=== PATIENT | female | born 1955 | race Caucasian/White ===

== ENCOUNTER 2022-05-31 08:17 | Outpatient (REF) | payer OTHER, SELFPAY ==
[2022-05-31 09:29] LABS: SARS PCR* Negative SARS-CoV-2 (Negative)
== END 2022-05-31 08:18 | disposition home or self-care (01) ==
LOC: NPINS 08:17
PROVIDERS: Visit Provider Family Medicine
DX: Z20.822 Contact with and (suspected) exposure to COVID-19 (principal)
CPT/HCPCS: 87635

== ENCOUNTER 2022-08-31 15:29 | Outpatient (CLI) | payer OTHER, SELFPAY ==
[2022-08-31 17:25] LABS: Albumin* 4.6 g/dL (3.3-5.0); Chloride* 108 mmol/L (96-114)
[2022-08-31 17:26] LABS: Sodium* 144 mmol/L (135-149)
[2022-08-31 17:28] LABS: Aspartate Amino Transferase* 26 U/L (12-35); Bilirubin Total* 0.4 mg/dL (0.1-1.5); Blood Urea Nitrogen* 29 mg/dL (7-30); Carbon Dioxide* 30 mmol/L (20-32); Cholesterol* 178 mg/dL (90-199); Creatinine* 0.9 mg/dL (0.5-1.5); Estimated Glomerular Filt Rate 70 ml/min; Glucose* 97 mg/dL (60-115); Total Protein* 7.4 g/dL (6.0-8.3)
[2022-08-31 17:29] LABS: Alanine Aminotransferase* 23 U/L (4-35); Alkaline Phosphatase* 63 U/L (40-150); Calcium* 9.3 mg/dL (8.4-10.6); HDL Cholesterol* 57 mg/dL (>=50); LDL Cholesterol Calculated 51 mg/dL (<100); Triglycerides* 351 mg/dL (40-149)
[2022-08-31 17:52] LABS: Creatinine Urine 82.1 mg/dL
[2022-08-31 17:55] LABS: Microalbumin Creatinine Ratio 20 mg/g (0-30); Microalbumin Urine 2 mg/dL
[2022-08-31 18:00] LABS: TSH With Reflex to FT4* 0.324 uIU/mL (0.270-4.200)
== END 2022-08-31 15:30 | disposition home or self-care (01) ==
LOC: NFLDREF 15:29
PROVIDERS: PCP Family Medicine; Visit Provider Family Medicine
DX: E11.9 Type 2 diabetes mellitus without complications (principal); E78.5 Hyperlipidemia, unspecified; E03.9 Hypothyroidism, unspecified
CPT/HCPCS: 80053; 80061; 82043; 82570; 84443

== ENCOUNTER 2023-04-11 08:06 | Outpatient (CLI) | payer OTHER, SELFPAY | END 2023-04-11 08:07 | disposition home or self-care (01) | LOC: NFLDREF 04-15 12:58 | PROVIDERS: PCP Family Medicine; Referring Provider Family Medicine; Visit Provider Family Medicine | DX: E03.9 Hypothyroidism, unspecified (principal); E11.9 Type 2 diabetes mellitus without complications; I10 Essential (primary) hypertension; E55.9 Vitamin D deficiency, unspecified; G62.9 Polyneuropathy, unspecified; Z79.1 Long term (current) use of non-steroidal anti-inflammatories (NSAID) | CPT/HCPCS: 80053 ==

== ENCOUNTER 2023-12-24 10:27 | Outpatient (CLI) | payer OTHER, SELFPAY ==
--- OUTSIDE RECORDS SUMMARY | 2023-12-24 14:53 | XMS_ITS | Encounter Summary ---
Author Organization [facility] Address [address] [place] [address] Care Team Providers Care Restaurant Assistant Name Role Phone None Reported, Pcp Primary Care Provider Unavail able Encounter Details Date Type Department Care Team (Late st Contact Info) Description 12/12/2023 Ancillary Procedure Department of Dermatology Social History Tobacco Use Types Packs/Day Years Used Date Smoking Tobacco: Never Smokeless Tobacco: Never Alcohol Use Standard Drinks/Week Comments Never 0 (1 standard drink = 0.6 oz pur e alcohol) Humiliation, Afraid, Rape, and Kick questionnair e Answer Date Recorded Within the last year, have y ou been afraid of your partner or ex-partner? No 01/31/2023 Within the last year, have y ou been humiliated or emotionally abused in other ways by your partner or ex-partner? No Within the last year, have y ou been kicked, hit, slapped, or otherwise physically hurt by your partner or ex-partner? No 01/31/2023 Within the last year, have y ou been raped or forced to have any kind of sexual activity by your partner or ex-partner? No 01/31/2023 Overall Financial Resource Strain (CARDIA) Answe r Date Recorded How hard is it for you to pa y for the very basics like food, housing, medical care, and heating? Somewhat hard 01/31/2023 Exercise Vital Sign Answer Date Recorde d On average, how many days pe r week do you engage in moderate to strenuous exercise (like a brisk walk)? 2 days 01/31/2023 On average, how many minutes do you engage in exercise at this level? 30 min 01/31/2023 Hunger Vital Sign Answer Date Recorded Within the past 12 months, y ou worried that your food would run out before you got the money to buy more. Never true 02/01/20 Within the past 12 months, t he food you bought just didn't last and you didn't have money to get more. Never true 01/31/2023 PRAPARE - Transportation Answer Date Re corded In the past 12 months, has l ack of transportation kept you from medical appointments or from getting medications? No 12/2022 In the past 12 months, has l ack of transportation kept you from meetings, work, or from getting things needed for daily living? No 01/31/2023 Nutrition Answer Date Recorded On average, how many serving s of fruits and vegetables do you eat per day (serving size is equal to 1 cup or approximately the size of a tennis ball)? 5 or more 01/31/2023 Dental Answer Date Recorded Dental: Regular Dentist Yes 02/01/20 Employment Answer Date Recorded Employment status Working with temporary [employer] 01/31/2023 Housing Stability Answer Date Recorded What is your living situation today? I have a [facility] place to live 01/31/2023 Sex and Gender Information Value Date Recorded Sex Assigned at Female 10/06/2023 10:05 AM CDT Gender Identity Female 10/06/2023 10:05 AM CDT Sexual Orientation Straight 10/06/2023 10 :05 AM CDT documented as of this encounter Plan of Treatment Upcoming Encounters Date Type Department Care Team (Latest Contact Info) Description 01/22/2024 8:30 AM CDT Comprehensive Visit Division of Endocrinology in [place], [place] [address] [place] [phone] Iván Sky M.D. 200 [place] [phone] 01/22/2024 11:00 AM CDT Clinical Support Enema Prep Facility in [place], [place] [address] [place] [phone] Hung Botello M.D. 200 [place] [phone] 01/22/2024 12:30 PM CDT Appointment Division of Gastroenterology in [place], [place] [address] [place] [phone] Hung Botello M.D. [address] [place] [phone] 03/05/2024 7:15 AM CDT Appointment Department of Radiology, [place], [place] [address] [place] [phone] Hung Botello M.D. [address] [place] [phone] 03/06/2024 8:15 AM CDT Appointment Department of Radiology, [facility] in [place], [place] [address] [place] [phone] Hung Botello M.D. [address] [place] [phone] 03/07/2024 8:00 AM CDT Appointment Department of Radiology, [facility], in [place], [place] [address] [place] [phone] Hung Botello M.D. [address] [place] [phone] documented as of this encounter Procedures Procedure Name Priority Date/Time Associated Diagnosis Comments DERMATOLOGY IMAGE EXAM Routine 12/12/2023 12:00 AM CDT documented in this encounter Results * cheek, right upper 14 Mohs micrographic surgery-Dermatology Image Exam (12/12/2023 12:00 AM CDT) Narrative [facility]IM[facility] - 12/13/2023 10:54 AM CDT This order has been created and auto-finalized to support the import of images acquired without order. The clinical documentation to support these images can be found on the encounter that produced images. Provider Not In System IMG NON RAD IMAGI NG PROCEDURES [facility] NA documented in this encounter Visit Diagnoses Not on filedocumented in this encounter Care Teams Restaurant Assistant Relationship Specialty Start Date End Date None Reported, Pcp PCP - General Family Medicine 02/06/23 documented as of this encounter
--- OUTSIDE RECORDS SUMMARY | 2023-12-24 14:53 | XMS_ITS | Clinical Summary ---
Author Organization [facility] Address [address] [place] [address] Care Team Providers Care Density Control Puncher Name Role Phone No Ref-Primary, Physician Primary Care Provider Allergies Active Allergy Reactions Criticality Noted Date Comments Codeine Rash Low 12/03/2018 Prochlorperazine Anaphylaxis High 12/03/2018 Meperidine Visual Disturbance 12/03/2018 Hallucinations Exenatide Other (See Comments) 12/03/2018 (exenatide): Hypoglycemia, Psychological Changes Gabapentin Other (See Comments) 12/03/2018 Psychological Changes Iodine Anaphylaxis High 05/24/2017 Other reaction(s): Angioedema Monosodium Glutamate Anaphylaxis High 12/03/2018 Conjugated Estrogens Palpitations Low 12/03/2018 Pumpkin Flavor Anaphylaxis High 12/03/2018 Medications Medication Sig Dispensed Refills Start Date End Date Status B Complex Vitamins (VITAMIN B COMPLEX PO) Take 1 tablet by mouth daily Active bumetanide (BUMEX) 1 MG tablet Take 1 mg by mouth daily Active ciprofloxacin (CIPRO) 500 MG tablet Take 500 mg by mouth 2 times daily Active citalopram (CELEXA) 40 MG tablet Take 40 mg by mouth daily Active Cranberry 400 MG CAPS Take 400 mg by mouth Acti ve dulaglutide (TRULICITY) 0.75 MG/0.5ML pen Inject 0.75 mg Subcutaneous every 7 days Active estradiol (ESTRACE) 0.1 MG/GM vaginal cream Place 2 g vaginally three times a week Active hyoscyamine ER (LEVBID) 375 mcg 12 hr tablet Take 0.375 mg by mouth every 12 hours as needed for cramping Active ketorolac (TORADOL) 10 MG tablet Take 10 mg by mouth every 6 hours as needed for moderate pain Active LACTOBACILLUS RHAMNOSUS, GG, PO Active LANsoprazole (PREVACID) [address] capsule Take 30 mg by mouth daily Active levothyroxine (SYNTHROID/LEVOTHRO ID) 75 MCG tablet Take 75 mcg by mouth daily Active LORazepam (ATIVAN) 0.5 MG tablet Take 0.5 mg by mouth nightly as needed for anxiety Active pregabalin (LYRICA) 75 MG capsule Take 75 mg by mouth 2 times daily Active meloxicam (MOBIC) 15 MG tablet Take 15 mg by mouth daily Active polyethylene glycol (MIRALAX/GLYCOLAX) packet Take 1 packet by mouth daily Active Multiple Vitamins-Minerals (MULTIVITAMIN PO) Take 1 tablet by mouth daily Active omeprazole (PRILOSEC) [address] capsule Take 40 mg by mouth daily Active ondansetron (ZOFRAN) 4 MG tablet Take 4 mg by mouth every 8 hours as needed for nausea Active pioglitazone (ACTOS) 45 MG tablet Take 45 mg by mouth daily Active rosuvastatin (CRESTOR) 20 MG tablet Take 20 mg by mouth At Bedtime Active senna (SENOKOT) 8.6 MG tablet Active spironolactone (ALDACTONE) 25 MG tablet Take 25 mg by mouth daily Active Ascorbic Acid (VITAMIN C PO) Take 1,000 mg by mouth daily Active blood glucose monitoring (ONE TOUCH ULTRA 2) meter device kit Dispense meter, test strips, lancets covered by pt ins. E11.9 NIDDM type II - Test 1 time/day 03/12/2018 Active blood glucose (ONETOUCH ULTRA) test strip Dispense item covered by pt ins. E11.65 NIDDM type II, uncontrolled - Test 3 times/day, Reason: High A1C 09/16/2018 Active blood glucose monitoring (ONE TOUCH DELICA) lancets E11.65 NIDDM type II, uncontrolled - Test 3 times/day, Reason: High A1C 10/21/2018 Active Active Problems Problem Noted Date Diagnosed Date Dizziness 12/04/2018 Overview: Added automatically from request for surgery [id number] Family History Medical History Relation Comments Hypertension Son Relation Status Comments Son Social History Tobacco Use Types Packs/Day Years Used Date Smoking Tobacco: Never Smokeless Tobacco: Never Alcohol Use Standard Drinks/Week Comments Not Currently 0 (1 standard drink = 0.6 oz pur e alcohol) PHQ-2 Answer Date Recorded PHQ-2 Score 0 12/03/2018 Adolescent Education Answer Date Record ed Getting School Help Needed Not on file 04/19 Sex and Gender Information Value Date Recorded Sex Assigned at Not on file Gender Identity Not on file Sexual Orientation Not on file Last Filed Vital Signs Vital Sign Reading Time Taken Comments Blood Pressure 119/55 12/03/2018 12:55 PM CDT Pulse 76 12/03/2018 12:55 PM CDT Temperature - - Respiratory Rate - - Oxygen Saturation 97% 12/03/2018 12:55 PM CDT Inhaled Oxygen Concentration - - Weight 72.3 kg (159 lb 4.8 oz) 12/03/2018 12:55 PM CDT Height 164.8 cm (5' 4.88) 12/03/2018 12:55 PM C DT Body Mass Index 26.61 12/03/2018 12:55 PM CDT Plan of Treatment Not on file Care Teams Density Control Puncher Relationship Specialty Start Date End Date No Ref-Primary, Physician PCP - General 12/09/18
--- OUTSIDE RECORDS SUMMARY | 2023-12-24 14:53 | XMS_ITS | Encounter Summary ---
Author Organization [facility] Address [address] [place] [address] Care Team Providers Care Vegetable Farming Supervisor Name Role Phone No Ref-Primary, Physician Primary Care Provider Reason for Visit * Reason Onset Date Comments Appointment 12/03/2018 Tilt Table Test Encounter Details Date Type Department Care Team (Late st Contact Info) Description 12/03/2018 Telephone [facility] [address] [phone] Adult, Cardiology General Appointment (Tilt Table Test) Social History Tobacco Use Types Packs/Day Years Used Date Smoking Tobacco: Never Smokeless Tobacco: Never Alcohol Use Standard Drinks/Week Comments Not Currently 0 (1 standard drink = 0.6 oz pur e alcohol) PHQ-2 Answer Date Recorded PHQ-2 Score 0 12/03/2018 Sex and Gender Information Value Date Recorded Sex Assigned at Not on file Gender Identity Not on file Sexual Orientation Not on file documented as of this encounter Miscellaneous Notes * Telephone Encounter - Suzette Razo - 01/12/2019 2:29 PM CDT Patient didn't show for her tilt and it was cancelled. Naomi Razo Periop Electrophysiology Law Librarian [phone] * Telephone Encounter - Augusta Asher - 01/02/2019 11:53 AM CDT [facility] Call Center Phone Message May a detailed message be left on voicemail: yes Reason for Call: CANCELLATION - pt has been in hospital since December 19 and she would like to put these appointment on hold until he is out of the hospital, please call patient with further questions Action Taken: Message routed to: [facility] ([facility]): CARDIO * Telephone Encounter - Mayra Rosen - 12/03/2018 2:53 PM CDT Health Call Center Phone Message May a detailed message be left on voicemail: yes Reason for Call: Other: Pt called to speak with Naomi to set up a tilt table test. She is being referred by Dr. Cox in Neurology. Please give her a call back to get scheduled. She's hoping to set something up for 12/16 if possible. Action Taken: Message routed to: [facility] ([facility]): Cardiology documented in this encounter Plan of Treatment Not on file documented as of this encounter Visit Diagnoses Not on filedocumented in this encounter Care Teams Vegetable Farming Supervisor Relationship Specialty Start Date End Date No Ref-Primary, Physician PCP - General 12/09/18 documented as of this encounter
--- OUTSIDE RECORDS SUMMARY | 2023-12-24 14:53 | XMS_ITS | Encounter Summary ---
Author Organization [facility] Address [address] [place] [address] Care Team Providers Care Sales Demonstrator Name Role Phone None Reported, Pcp Primary Care Provider Unavail able Encounter Details Date Type Department Care Team (Latest Contact Info) Description 12/19/2023 8:39 AM CDT - 12/19/2023 11:59 PM CDT Hospital Encounter Department of Laboratory Medicine in [address] [phone] Iván Sky M.D. [address] [place] [address] Constipation; Diabetes Mellitus Type 2 With Diabetic Neuropathy (HCC) Discharge Disposition: Home or Self Care Social History Tobacco Use Types Packs/Day Years [...] Date Recorded Employment status Working with temporary restric tions 01/31/2023 Housing Stability Answer Date Recorded What is your living situation today? I have a [facility] place to live 01/31/2023 Sex and Gender Information Value Date Recorded Sex Assigned at Female 10/06/2023 10:05 AM CDT Gender Identity Female 10/06/2023 10:05 AM CDT Sexual Orientation Straight 10/06/2023 10 :05 AM CDT documented as of this encounter Medications at Time of Discharge Medication Sig Dispensed Refills Start Date End Date acetaminophen (TYLENOL) 500 mg tablet Take 1,000 mg by mouth 3 (three) times a day. APPLE CIDER VINEGAR ORAL Take 2 tablets by mouth daily. ascorbic acid, vitamin C, powder Take 1,000 mg by mouth daily. blood sugar diagnostic strips (OneTouch Ultra Test Strips) 1 test once as needed. 2-4 times daily 09/16/2018 bumetanide (BUMEX) 1 mg tablet Take 1 mg by mouth daily. For edema 05/23/2020 busPIRone (BUSPAR) 5 mg tablet Take 5 mg by mouth 2 (two) times a day. celecoxib (CeleBREX) 200 mg capsule Take 200 mg by mouth 2 (two) times a day. citalopram (CeleXA) 40 mg tablet Take 40 mg by mouth daily. 05/23/2020 cranberry 400 mg capsule Take 400 mg by mouth. 2,500 mg daily cyanocobalamin, vitamin B-12, 5,000 mcg tablet, IR & ER, biphasic Take 1 tablet by mouth daily. dulaglutide (TRULICITY) 0.75 mg/0.5 mL injection Inject 1.5 mg under the skin every 7 (seven) days. 05/23/2020 estradioL (ESTRACE) 0.1 mg/g (0.01%) vaginal cream Insert 2 g into the vagina 3 (three) times a week. 12/11/2018 hyoscyamine (LEVBID) 0.375 mg 12 hr tablet Take 0.375 mg by mouth every 12 (twelve) hours. 06/26/2020 ibuprofen (ADVIL,MOTRIN) 200 mg capsule Take 800 mg by mouth 3 (three) times a day. lansoprazole (PREVACID) [address] capsule Take 30 mg by mouth daily. 05/23/2020 levothyroxine (SYNTHROID, LEVOTHROID) 75 mcg tablet Take 75 mcg by mouth every morning before breakfast. 11/30/2019 multivitamin tablet Take 1 tablet by mouth daily. 10/11/2017 pioglitazone (ACTOS) 45 mg tablet Take 30 mg by mouth daily. 05/23/2020 pregabalin (LYRICA) 75 mg capsule Take 300 mg by mouth daily. 05/22/2020 rosuvastatin (CRESTOR) 20 mg tablet Take 20 mg by mouth at bedtime. 11/11/2019 sennosides-docusate sodium (SENOKOT-S) 8.6-50 mg per tablet Take 1 tablet by mouth 2 (two) times a day. traMADoL (ULTRAM) 50 mg tabletIndications:Acute Pain Take 1 tablet (50 mg total) by mouth every 6 (six) hours as needed for pain Indications: Acute Pain. 8 tablet 01/24/2023 VITAMIN B COMPLEX ORAL Take 1 tablet by mouth daily. 10/11/2017 documented as of this encounter Plan of Treatment Upcoming Encounters Date Type Department Care Team (Latest Contact Info) Description 01/22/2024 8:30 AM CDT Comprehensive Visit Division of Endocrinology in [place], [place] [address] [place] [phone] Iván Sky M.D. [address] [place] [phone] 01/22/2024 11:00 AM CDT Clinical Support Enema Prep Facility in [place], [place] [address] [place] [phone] Hung Botello M.D. [address] [place] [phone] 01/22/2024 12:30 PM CDT Appointment Division of Gastroenterology in [place], [place] [address] [place] [phone] Hung Botello M.D. [address] [place] [phone] 03/05/2024 7:15 AM CDT Appointment Department of Radiology, [facility], in [place], [place] [address] [place] [phone] Hung Boetllo M.D. [address] [place] [phone] 03/06/2024 8:15 AM CDT Appointment Department of Radiology, [facility], in [place], [place] [address] [place] [phone] Hung Botello M.D. [address] [place] [phone] 03/07/2024 8:00 AM CDT Appointment Department of Radiology, [facility] in [place], [place] [address] [place] [address] Hung Botello M.D. [address] [place] [address] documented as of this encounter Procedures Procedure Name Priority Date/Time Associated Diagnosis Comments HEMOGLOBIN A1C, B Routine 12/19/2023 8:4 8 AM CDT Constipation Diabetes Mellitus Type 2 With Diabetic Neuropathy (HCC) GLUCOSE, FASTING, S/P Routine 12/19/2023 8:48 AM CDT Constipation Diabetes Mellitus Type 2 With Diabetic Neuropathy (HCC) CREATININE WITH EGFR, S/P Routine 12/19/2023 8:48 AM CDT Constipation Diabetes Mellitus Type 2 With Diabetic Neuropathy (HCC) documented in this encounter Results * Glucose, Fasting (12/19/2023 8:48 AM CDT) Glucose, P 88 70 - 100 mg/dL 12/19/2023 1:12 PM CDT OWAT Last Intake 11 hr 12/19/2023 12:50 PM CDT OWAT Blood (Blood, Venous) 12/19/2023 8:48 AM CDT 12/19/2023 12:50 PM CDT Iván Saleh M.D. LAB BLOOD NON A DD-ON [facility] [address] [place] [address], [place] OWAT [facility] in [place] [address] [place] [address] * (ABNORMAL) Creatinine with Estimated GFR (12/19/2023 8:48 AM CDT) Creatinine 1.13(H) 0.59 - 1.04 mg/dL 12/19/2023 1:31 PM CDT OWAT Estimated GFR (eGFR) 53(L) >=60 mL/min/BSA 12/19/2023 1:31 PM CDT OWAT Comment: Estimated GFR calculated using the 2020 CKD_EPI creatinine equation. Blood (Blood, Venous) 12/19/2023 8:48 AM CDT 12/19/2023 12:57 PM CDT Iván Saleh M.D. LAB BLOOD ADD-O N Performing Organization Address [facility] Co de Phone Number [facility] [address] [place] [address], [facility] OWAT [facility] in [place] [address] [place] [address] * (ABNORMAL) Hemoglobin A1c (12/19/2023 8:48 AM CDT) Hemoglobin A1c, B 5.8(H) 4.2 - 5.6 % 12/19/2023 1:37 PM CDT OWAT Comment: Hemoglobin A1c values of 5.7-6.4 percent indicate an increased risk for developing diabetes mellitus. In diabetic patients, HbA1c goals should be discussed with healthcare provider. Blood (Blood, Venous) 12/19/2023 8:48 AM CDT 12/19/2023 12:57 PM CDT Iván Saleh M.D. LAB BLOOD ADD-O N Performing Organization Address [facility] Co de Phone Number [facility] [address] [place] [address], [facility] OWAT [facility] in [place] [address] [place] [address] documented in this encounter Visit Diagnoses Diagnosis Constipation Diabetes Mellitus Type 2 With Diabetic Neuropathy (HCC) documented in this encounter Care Teams Sales Demonstrator Relationship Specialty Start Date End Date None Reported, Pcp PCP - General Family Medicine 02/06/23 documented as of this encounter
--- OUTSIDE RECORDS SUMMARY | 2023-12-24 14:53 | XMS_ITS | Encounter Summary ---
Author Organization [facility] Address [address] [place] [address] Care Team Providers Care Coordinator Volunteer Services Name Role Phone None Reported, Pcp Primary Care Provider Unavail able Reason for Visit * Outpatient (Routine) - Closed Specialty Diagnoses / Procedures Referred By Myriam wise Referred To Contact Dermatology Augusta Peña M.D. [address] [place] [phone] [facility] Referral ID Status Reason Start Date Expiration Date Visits Re quested Visits Authorized [id number] Closed 12/05/2023 06/05/2025 1 1 Encounter Details Date Type Department Care Team (Late st Contact Info) Description 12/12/2023 3:00 PM CDT Nurse Only Department of Dermatology in [place], [place] [address] [place] [phone] Augusta Peña M.D. [address] [place] [phone] Kg Cabral R.N. [address] [place] [phone] Discharge Disposition: Home or Self Care Social [...] your living situation today? I have a [facility] place to live 01/31/2023 Sex and Gender Information Value Date Recorded Sex Assigned at Female 10/06/2023 10:05 AM CDT Gender Identity Female 10/06/2023 10:05 AM CDT Sexual Orientation Straight 10/06/2023 10 :05 AM CDT documented as of this encounter Procedure Notes * Kg Cabral R.N. - 12/12/2023 3:00 PM CDT Patient returns for suture removal. Status post scar excision done on December 05, [address] Dwight Lobo([id number]) to right cheek for hypertrophic scar . Verbal consent for procedure obtained from patient and spouse. Patient discussed and seen with supervising cosmetic sales consultant Supervising Physician: Dr. Dwight Lobo ([id number]). Final Pause: A final pause occurred just before the procedure start, during which the entire procedure team actively confirmed the correct patient, procedure, site, special equipment, and special requirements. Mrs. Barahona reports pruritis to face and neck. Incision is well approximated, minor yellow bruising present, skin graft pink in color, no concerns for infection present today. All suture(s)removed without difficulty. No apparent complications. Vaseline and bandage applied. Dr. Lobo examined wound, pleased with wound healing. Plan: Recommended OTC hydrocortisone cream BID PRN for pruritis x1 week to face Triamcinolone on neck BID for pruritis x1 week, rx provided Photos in one month Bandaging x3 days to entire scar, then only to skin graft site until completely healed Teaching provided to patient and spouse. Evaluation of learning: able to teach back. Time spent with patient: 30 minutes. documented in this encounter Plan of Treatment Upcoming Encounters Date Type Department Care Team (Latest Contact Info) Description 01/22/2024 8:30 AM CDT Comprehensive Visit Division of Endocrinology in [place], [place] [address] [place] [phone] Iván Sky M.D. [address] [place] [phone] 01/22/2024 11:00 AM CDT Clinical Support Enema Prep Facility in [place], [place] [address] [place] [phone] Hung Botello M.D. [address] [place] [phone] 01/22/2024 12:30 PM CDT Appointment Division of Gastroenterology in [place], [place] [address] [place] [phone] Hung Botello M.D. [address] [place] [phone] 03/05/2024 7:15 AM CDT Appointment Department of Radiology, [facility] in [place], [place] [address] [place] [phone] Hung Botello M.D. [address] [place] [phone] 03/06/2024 8:15 AM CDT Appointment Department of Radiology, [facility], in [place], [place] [address] [place] [phone] Hung Botello M.D. [address] [place] [phone] 03/07/2024 8:00 AM CDT Appointment Department of Radiology, [facility], in [place], [place] [address] [place] [phone] Hung Botello M.D. [address] [place] [phone] documented as of this encounter Visit Diagnoses Not on filedocumented in this encounter Care Teams Coordinator Volunteer Services Relationship Specialty Start Date End Date None Reported, Pcp PCP - General Family Medicine 02/06/23 documented as of this encounter
--- OUTSIDE RECORDS SUMMARY | 2023-12-24 14:53 | XMS_ITS ---
Author Organization [facility] Address [address] [place] [address] Care Team Providers Care Slide Attendant Name Role Phone Unavailable Unavailable Unavailable Surgery Details Not on file Complications Check Surgery Details section. Procedure Estimated Blood Loss Check Surgery Details section. Procedure Findings Check Surgery Details section. Procedure Specimens Taken Check Surgery Details section.
--- OUTSIDE RECORDS SUMMARY | 2023-12-24 14:53 | XMS_ITS | Referral Summary ---
Author Organization [facility] Address [address] [place] [id number] Care Team Providers Care Jewelry Mold Maker Name Role Phone No Ref-Primary, Physician Primary [...] Overview: Added automatically from request for surgery [id number] Social History Tobacco Use Types Packs/Day Years [...] of Treatment Not on file Care Teams Jewelry Mold Maker Relationship Specialty Start Date End Date No Ref-Primary, Physician PCP - General 12/09/18
--- OUTSIDE RECORDS SUMMARY | 2023-12-24 14:53 | XMS_ITS | Encounter Summary ---
Author Organization [facility] Address [address] [place] [id number] Care Team Providers Care Client Success Director Name Role Phone None Reported, Pcp Primary Care Provider Unavail able Reason for Visit * Reason Onset Date Comments Pre-visit Intake 12/11/2023 Encounter Details Date Type Department Care Team (Latest Contact Info) Description 12/11/2023 7:00 AM CDT Clinical Communication Virtual Review in [place], [place] [address] [place] [phone] Pre-visit Intake Social History Tobacco Use Types Packs/Day Years Used Date Smoking Tobacco: Never Smokeless Tobacco: Never Tobacco Cessation:Counseling Given: Not Answered Alcohol Use Standard Drinks/Week Comments Never 0 [...] money to buy more. Never true 02/01/20 23 Within the past 12 months, t he [...] your living situation today? I have a [facility] place to live 01/31/2023 Sex and [...] CDT Comprehensive Visit Division of Endocrinology in [place], [place] [address] [place] [address] Iván Sky M.D. [address] [place] [address] 01/22/2024 11:00 AM CDT Clinical Support Enema Prep Facility in [place], [place] [address] [place] [address] Hung Botello M.D. [address] [place] [phone] 01/22/2024 12:30 PM CDT Appointment Division of Gastroenterology in [place], [place] [address] [place] [address] Hung Botello M.D. [address] [place] [phone] 03/05/2024 7:15 AM CDT Appointment Department of Radiology, [facility], in [place], [place] [address] [place] [address] Hung Botello M.D. [address] [place] [phone] 03/06/2024 8:15 AM CDT Appointment Department of Radiology, [facility], in [place], [place] [address] [place] [address] Hung Botello M.D. [address] [place] [phone] 03/07/2024 8:00 AM CDT Appointment Department of Radiology, [facility], in [place], [place] [address] [place] [address] Hung Botello M.D. [address] [place] [phone] documented as of this encounter Visit Diagnoses Not on filedocumented in this encounter Care Teams Client Success Director Relationship Specialty Start Date End Date None Reported, Pcp PCP - General Family Medicine 02/06/23 documented as of this encounter
--- OUTSIDE RECORDS SUMMARY | 2023-12-24 14:53 | XMS_ITS | Encounter Summary ---
Author Organization [facility] Address [address] [place] [address] Care Team Providers Care Ged Teacher Name Role Phone None Reported, Pcp Primary Care Provider Unavail able Reason for Referral * Outpatient (Routine) - Closed Specialty Diagnoses / Procedures Referred By Myriam wise Referred To Contact Diagnoses Constipation Procedures DX Abdomen 1 View Hnug Botello M.D. [address] [place] [phone] [facility] Referral ID Status Reason Start Date Expiration Date Visits Re quested Visits Authorized [id number] Closed 09/27/2023 09/26/2024 1 1 Reason for Visit * Outpatient (Routine) - Closed Specialty Diagnoses / Procedures Referred By Myriam wise Referred To Contact Diagnoses Constipation Procedures DX Abdomen 1 View Hung Botello M.D. [address] [place] [phone] [facility] Referral ID Status Reason Start Date Expiration Date Visits Re quested Visits Authorized [id number] Closed 09/27/2023 09/26/2024 1 1 Encounter Details Date Type Department Care Team (Latest Contact Info) Description 12/12/2023 11:57 AM CDT - 12/12/2023 11:59 PM CDT Hospital Encounter Department of Radiology, [facility] in [place], [place] [address] [place] [phone] Hung Botello M.D. [address] [place] [phone] Constipation Discharge Disposition: Home or Self Care Social [...] your living situation today? I have a [facility] place to live 01/31/2023 Sex and [...] by mouth daily. blood sugar diagnostic strips ([employer] Ultra Test Strips) 1 test once as [...] times a day. traMADoL (ULTRAM) 50 mg tabletIndications:Acu te Pain Take 1 tablet (50 mg total) by mouth every 6 (six) hours as needed for pain Indications: Acute Pain. 8 tablet 01/24/2023 triamcinolone (KENALOG) 0.1 % cream Apply 1 Application topically 2 (two) times a day for 7 days. Apply to neck. 240 g 3 12/12/2023 VITAMIN B COMPLEX ORAL Take 1 tablet by mouth daily. 10/11/2017 cefadroxil (DURICEF) 500 mg capsule Take 1 capsule (500 mg total) by mouth 2 (two) times a day for 10 days. 20 capsule 12/05/2023 12/15/2023 documented as of this encounter Plan of Treatment Upcoming Encounters Date Type Department Care Team (Latest Contact Info) Description 01/22/2024 8:30 AM CDT Comprehensive Visit Division of Endocrinology in [place], [place] [address] [place] [phone] Iván Sky M.D. [address] [place] [phone] 01/22/2024 11:00 AM CDT Clinical Support [facility] Facility in [place], [place] [address] [place] [phone] Hung Botello M.D. [address] [place] [phone] 01/22/2024 12:30 PM CDT Appointment Division of Gastroenterology in [place], [place] [address] [place] [phone] Hung Botello M.D. [address] [place] [phone] 03/05/2024 7:15 AM CDT Appointment Department of Radiology, [place], [place] [address] [place] [phone] Hung Botello M.D. [address] [place] [phone] 03/06/2024 8:15 AM CDT Appointment Department of Radiology, [facility] in [place], [place] [address] [place] [phone] Hung Botello M.D. [address] [place] [phone] 03/07/2024 8:00 AM CDT Appointment Department of Radiology, [place], [place] [address] [place] [phone] Hung Botello M.D. [address] [place] [phone] documented as of this encounter Procedures Procedure Name Priority Date/Time Associated Diagnosis Comments DX ABDOMEN 1 VIEW RAD - Routine (most inpatients and all outpatients) 12/12/2023 12:17 PM CDT Constipation documented in this encounter Results * DX Abdomen 1 View (12/12/2023 12:17 PM CDT) Anatomical Region Laterality Modality Abdomen, Abdominal RST LOS, Abdominal ARZ LOS, Abdominal FLA LOS N/A Digital Radiography Impressions 12/12/2023 12:33 PM CDT Nonobstructive bowel gas pattern. Moderate stool burden in the colon. Degenerative changes. Bibasilar atelectasis. Narrative 12/12/2023 12:33 PM CDT EXAM: ??DX ABDOMEN 1 VIEW Procedure Note Alfredo Leonardo M.D. - 12/12/2023 EXAM: DX ABDOMEN 1 VIEW IMPRESSION: Nonobstructive bowel gas pattern. Moderate stool burden in the colon.Degenerative changes. Bibasilar atelectasis. Hung Botello M.D. IMFredi DIAGNOSTIC IMAGI NG PROCEDURES documented in this encounter Visit Diagnoses Diagnosis Constipation documented in this encounter Care Teams Ged Teacher Relationship Specialty Start Date End Date None Reported, Pcp PCP - General Family Medicine 02/06/23 documented as of this encounter
--- OUTSIDE RECORDS SUMMARY | 2023-12-24 14:53 | XMS_ITS | Clinical Summary ---
Author Organization [facility] Address [address] [place] [id number] Care Team Providers Care Associate Dentist Name Role Phone None Reported, Pcp Primary Care Provider Unavail able Source Comments Patient records contain information from all sites at [facility]. For routine questions regarding patient records, call [phone] during business hours, M-F 8:00 AM - 5:00 PM Central Time. Record requests for emergency care only can be directed to [phone] at any time.[facility] Allergies Active Allergy Reactions Criticality Noted Date Comments Codeine Rash Low 03/31/2010 Conjugated Estrogens Palpitations Medium 10/11/2017 Oral estrogens - heart palpitations Exenatide Other (see comments) 05/24/2017 (exenatide): Hypoglycemia, Psychological Changes Psychologyical changes Flavoring Agent (Bulk) Anaphylaxis High 12/03/2018 Gabapentin Other (see comments) 05/24/2017 Psychological Changes Psychological changes Iodine Anaphylaxis,Angioed arlene (Reselect Reaction) High 05/24/2017 Other reaction(s): Angioedema Meperidine Hallucinations,Itch ing 01/24/2023 Monosodium Glutamate Anaphylaxis,Angioed arlene (Reselect Reaction),Hives (Reselect Reaction),Itching,S hortness of breath (Reselect Reaction) High 08/30/2017 Morphine Other (see comments) 03/31/2010 Promethazine Other (see comments) 01/24/2023 somulence Prochlorperazine Anaphylaxis High 03/31/2010 Pumpkin Angioedema (Reselect Reaction),Hives (Reselect Reaction),Shortness of breath (Reselect Reaction) 10/10/2023 Medications Medication Sig Dispensed Refills Start Date End Date Status ascorbic acid, vitamin C, powder Take 1,000 mg by mouth daily. Active cranberry 400 mg capsule Take 400 mg by mouth. 2,500 mg daily Active bumetanide (BUMEX) 1 mg tablet Take 1 mg by mouth daily. For edema 05/23/2020 Active busPIRone (BUSPAR) 5 mg tablet Take 5 mg by mouth 2 (two) times a day. Active celecoxib (CeleBREX) 200 mg capsule Take 200 mg by mouth 2 (two) times a day. Active citalopram (CeleXA) 40 mg tablet Take 40 mg by mouth daily. 05/23/2020 Active cyanocobalamin, vitamin B-12, 5,000 mcg tablet, IR & ER, biphasic Take 1 tablet by mouth daily. Active dulaglutide (TRULICITY) 0.75 mg/0.5 mL injection Inject 1.5 mg under the skin every 7 (seven) days. 05/23/2020 Active estradioL (ESTRACE) 0.1 mg/g (0.01%) vaginal cream Insert 2 g into the vagina 3 (three) times a week. 12/11/2018 Active hyoscyamine (LEVBID) 0.375 mg 12 hr tablet Take 0.375 mg by mouth every 12 (twelve) hours. 06/26/2020 Active lansoprazole (PREVACID) [address] capsule Take 30 mg by mouth daily. 05/23/2020 Active levothyroxine (SYNTHROID, LEVOTHROID) 75 mcg tablet Take 75 mcg by mouth every morning before breakfast. 11/30/2019 Active multivitamin tablet Take 1 tablet by mouth daily. 10/11/2017 Active pioglitazone (ACTOS) 45 mg tablet Take 30 mg by mouth daily. 05/23/2020 Active pregabalin (LYRICA) 75 mg capsule Take 300 mg by mouth daily. 05/22/2020 Active rosuvastatin (CRESTOR) 20 mg tablet Take 20 mg by mouth at bedtime. 11/11/2019 Active sennosides-docusa te sodium (SENOKOT-S) 8.6-50 mg per tablet Take 1 tablet by mouth 2 (two) times a day. Active VITAMIN B COMPLEX ORAL Take 1 tablet by mouth daily. 10/11/2017 Active APPLE CIDER VINEGAR ORAL Take 2 tablets by mouth daily. Active traMADoL (ULTRAM) 50 mg tabletIndications :Acute Pain Take 1 tablet (50 mg total) by mouth every 6 (six) hours as needed for pain Indications: Acute Pain. 8 tablet 01/24/2023 Active acetaminophen (TYLENOL) 500 mg tablet Take 1,000 mg by mouth 3 (three) times a day. Active ibuprofen (ADVIL,MOTRIN) 200 mg capsule Take 800 mg by mouth 3 (three) times a day. Active blood sugar diagnostic strips (RentlordTouch Ultra Test Strips) 1 test once as needed. 2-4 times daily 09/16/2018 Active triamcinolone (KENALOG) 0.1 % cream Apply 1 Application topically 2 (two) times a day for 7 days. Apply to neck. 240 g 3 12/12/2023 Active cefadroxil (DURICEF) 500 mg capsule Take 1 capsule (500 mg total) by mouth 2 (two) times a day for 10 days. 20 capsule 12/05/2023 12/15/2023 Hospital, Clinic, or Other Facility Administered Medication Ordered Dose Route Frequency Start Date End Date Status lidocaine-EPINEPHrine 1%-1:200,000 injection 2-50 mL (XYLOCAINE W/EPI)Indications:Scar 2 - 50 mL inj As needed 12/05/2023 12/05/2023 En ded lidocaine-sodium bicarbonate (buffered) 0.9%-0.84% injection 2 mL 2 mL inj Once 12/05/2023 12/05/2023 Ended lidocaine-EPINEPHrine 1 %-1:100,000 injection 20 mL (XYLOCAINE W/EPI)Indications:Scar 20 mL Ifil Once 12/05/2023 12/05/2023 En ded Active Problems Problem Noted Date Diagnosed Date Postural Orthostatic Tachycardia Syndrome 2022 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 Failed metformin after multiple attempts in 1998, caused GI upset. Failed glipizide as it caused a lot of hypoglycemic episodes with weight gain. Failed byetta due to severe hypoglycemia and neurologic changes. Lantus caused significant weight gain. Short acting insulin was on practical with her active lifestyle and caused too many fluctuations in her sugars. Has tried gabapentin for neuropathy but it caused a lot of psychiatric issues. She tolerates lyrica for her neuropathy. Gastroesophageal Reflux Disease NOS 02/06/2023 Hypothyroidism 02/06/2023 Hyperlipidemia 02/06/2023 Overview: Has failed multiple statins. Currently tolerating crestor. Mitral Valve Prolapse 02/06/2023 Other Specified Anxiety Disorders 02/06/2023 Overview: Has tried and failed Paxil, Prozac, Effexor. Pristiq helped the best but not covered by insurance. Currently on celexa with alprazolam as needed. Anemia 05/05/2018 Dizziness 05/05/2018 Overview: Added automatically from request for surgery [id number] Sinusitis Chronic 05/05/2018 Tendinitis Bicipital Left 10/22/2017 Pain Shoulder Left 09/20/2017 Spinal Stenosis Lumbar Regio n Without Neurogenic Claudication 06/02/2017 Overview: Takes meloxicam as needed. Occasionally requires toradol but uses very sparingly. Asthma Mild Intermittent 05/24/2017 Overview: Related to h/o Valley Fever Stroke 07/29/1998 Overview: Lacunar in 1998, with several TIAs since. Lupus Systemic Erythematosus 07/29/1995 Overview: Affects her GI system usually. Occasionally has facial rash. Has not established with Rheumatology locally. Encounters Date Type Department Care Team Description 12/19/2023 8:39 AM CDT - 12/19/2023 11:59 PM CDT Hospital Encounter Department of Laboratory Medicine in [place] [address] [place] [address] Iván Sky M.D. Constipation; Diabetes Mellitus Type 2 With Diabetic Neuropathy (HCC) Discharge Disposition: Home or Self Care 12/12/2023 3:00 PM CDT Nurse Only Department of Dermatology in [place], [place] [address] [place] [phone] Augusta Peña M.D. Anderson, Devon S, R.N. Discharge Disposition: Home or Self Care 12/12/2023 1:10 PM CDT Comprehensive Visit Division of Gastroenterology in [address] [phone] Hung Botello M.D. Mehanna Al Snih, Gad, M.D. Diabetes Mellitus Type 2 With Diabetic Neuropathy (HCC) (Primary Dx); Constipation; Pain Abdominal Chronic 12/12/2023 11:57 AM CDT - 12/12/2023 11:59 PM CDT Hospital Encounter Department of Radiology, [facility], in [address] [phone] Hung Botello M.D. Constipation Discharge Disposition: Home or Self Care 12/12/2023 Ancillary Procedure Department of Dermatology 12/11/2023 7:00 AM CDT Clinical Communication Virtual Review in [place], [place] 200 [place] [address] Pre-visit Intake 12/05/2023 2:00 PM CDT Procedure visit Department of Dermatology in [address] [phone] Pepe Lobo M.D. Scar (Primary Dx); Pain Cutaneous; Cicatricial Ectropion Right Lower Eyelid Discharge Disposition: Home or Self Care 12/05/2023 Ancillary Procedure Department of Dermatology 10/10/2023 3:15 PM CDT Office Visit Department of Dermatology in [place], [place] [address] [place] [phone] Pepe Lobo M.D. Scar (Primary Dx) Discharge Disposition: Home or Self Care 10/10/2023 Ancillary Procedure Department of Dermatology 10/01/2023 Clinical Communication Department of Dermatology in [place], [place] [address] [place] [phone] Pepe Lobo M.D. 09/27/2023 Clinical Communication Division of Gastroenterology in [place], [place] [address] [place] [address] Hung Botello M.D. Pre-visit Testing Orders; GI Motility from Last 3 Months Social History Tobacco Use Types Packs/Day Years [...] your living situation today? I have a [facility] place to live 01/31/2023 Sex and Gender Information Value Date Recorded Sex Assigned at Female 10/06/2023 10:05 AM CDT Gender Identity Female 10/06/2023 10:05 AM CDT Sexual Orientation Straight 10/06/2023 10 :05 AM CDT Last Filed Vital Signs Vital Sign Reading Time Taken Comments Blood Pressure 117/67 12/05/2023 2:01 PM CDT Pulse 61 12/05/2023 2:01 PM CDT Temperature 36.9 ??C (98.4 ??F) 02/06/2023 4:09 PM CD T Respiratory Rate 16 02/06/2023 4:09 PM CDT Oxygen Saturation 99% 02/06/2023 9:00 PM CDT Inhaled Oxygen Concentration - - Weight 81.1 kg (178 lb 12.7 oz) 12/12/2023 1:08 PM CDT Height 163 cm (5' 4.17) 12/12/2023 1:08 PM CDT Body Mass Index 30.52 12/12/2023 1:08 PM CDT Plan of Treatment Upcoming Encounters Date Type Department Care Team (Latest Contact Info) Description 01/22/2024 8:30 AM CDT Comprehensive Visit Division of Endocrinology in [place], [place] 200 [place] [phone] Iván Sky M.D. 200 [place] [phone] 01/22/2024 11:00 AM CDT Clinical Support Enema Prep Facility in [place], [place] 200 [place] [phone] Hung Botello M.D. [address] [place] [phone] 01/22/2024 12:30 PM CDT Appointment Division of Gastroenterology in [place], [place] [address] [place] [phone] Hung Botello M.D. [address] [place] [phone] 03/05/2024 7:15 AM CDT Appointment Department of Radiology, [facility] in [place], [place] [address] [place] [phone] Hung Botello M.D. [address] [place] [phone] 03/06/2024 8:15 AM CDT Appointment Department of Radiology, [facility], in [place], [place] [address] [place] [address] Hung Botello M.D. [address] [place] [phone] 03/07/2024 8:00 AM CDT Appointment Department of Radiology, [facility], in [place], [place] [address] [place] [phone] Hung Botello M.D. [address] [place] [phone] Health Maintenance Due Date Last Done Comments Bone Density Scan (Osteoporo sis Screen) 1954 CT Colonography 1954 Cologuard 1954 Colonoscopy 1954 Colorectal Cancer Screening 1954 Diabetic Office Visit with F oot Exam 1954 Dilated Eye Exam 1954 FIT 1954 Hepatitis C Screening 1954 Mammogram 1954 Urine Albumin 1954 Visit: Chronic Disease, age 18+ 1954 Visit: Medicare Annual Wellness 1954 Zoster Vaccines (1 of 2) 2004 Hepatitis B Vaccines (1 of 3 - Risk 3-dose series) 2014 Thyroid Stimulating Hormone (TSH) test for thyroid function 06/23/2020 06/23/2019, 12/11/2018, 08/22/2018, Additional history exists COVID-19 Vaccine (2022-2 4 season) 2023 07/17/2022, 01/31/2022, 06/20/2021, Additional history exists Influenza Vaccine (#1) 2023 , 05/26/2021, 04/11/2020, Additional history exists Depression Screening (Annual PHQ-2) 07/29/2023 Fall Risk Screen (Annual) 07/29/2023 Office Visit for Blood Press ure Check / Re-check 02/07/2024 02/06/2023 Potassium Level 02/19/2024 02/18/2023, 01/26, 06/23/2019, Additional history exists Sodium Level 02/19/2024 02/18/2023, 01/26, 06/23/2019, Additional history exists Hemoglobin A1C 06/20/2024 12/19/2023 Lipid (Cholesterol) Screening 06/23/2024, 12/11/2018, 08/22/2018, Additional history exists Creatinine Level (Kidney Fun ction Test) 12/18/2024 12/19/2023, 02/18/2023, 02/06/2023, Additional history exists DTaP,Tdap,and Td Vaccines (2 - Td or Tdap) 06/23/2029 06/23/2019 Pneumococcal vaccine (65+ years) Completed 07/12/2020, 06/23/2019, 06/13/2019 Procedures Procedure Name Priority Date/Time Associated Diagnosis Comments GLUCOSE, FASTING, S/P Routine 12/19/2023 8:48 AM CDT Constipation Diabetes Mellitus Type 2 With Diabetic Neuropathy (HCC) CREATININE WITH EGFR, S/P Routine 12/19/2023 8:48 AM CDT Constipation Diabetes Mellitus Type 2 With Diabetic Neuropathy (HCC) HEMOGLOBIN A1C, B Routine 12/19/2023 8:4 8 AM CDT Constipation Diabetes Mellitus Type 2 With Diabetic Neuropathy (HCC) DX ABDOMEN 1 VIEW RAD - Routine (most inpatients and all outpatients) 12/12/2023 12:17 PM CDT Constipation DERMATOLOGY IMAGE EXAM Routine 12/12/2023 12:00 AM CDT PETERSON EXCISION 1-2 SITES Routine 12/05/2023 2:00 PM CDT Scar DERMATOLOGY IMAGE EXAM Routine 12/05/2023 12:00 AM CDT DERMATOLOGY IMAGE EXAM Routine 10/10/2023 12:00 AM CDT COMPREHENSIVE METABOLIC PANEL, S/P Routine 02/18/2023 12:37 PM CDT Wound Infection Initial (HCC) EXTI LIPID PANEL, S Routine 06/23/2019 9 :20 AM [facility] HAND EXTI THYROID-STIMULATING HORMONE-SENSITIVE (S-TSH), S Routine 06/23/2019 9:20 AM [facility] HAND from Last 3 Months or Most Recently Relevant to Health Maintenance Results * (ABNORMAL) Hemoglobin A1c (12/19/2023 8:48 AM CDT) Hemoglobin A1c, B 5.8(H) 4.2 - 5.6 % 12/19/2023 1:37 PM CDT OWAT Comment: Hemoglobin A1c values of 5.7-6.4 percent indicate an increased risk for developing diabetes mellitus. In diabetic patients, HbA1c goals should be discussed with healthcare provider. Blood (Blood, Venous) 12/19/2023 8:48 AM CDT 12/19/2023 12:57 PM CDT Iván Mehanna Al Snih M.D. LAB BLOOD ADD-O N Performing Organization Address [facility]/ZIP Co de Phone Number [facility] [address] [place] [address], [place] OWAT [facility] [place] [address] [place] [address] * Glucose, Fasting (12/19/2023 8:48 AM CDT) Glucose, P 88 70 - 100 mg/dL 12/19/2023 1:12 PM CDT OWAT Last Intake 11 hr 12/19/2023 12:50 PM CDT OWAT Blood (Blood, Venous) 12/19/2023 8:48 AM CDT 12/19/2023 12:50 PM CDT Iván Saleh M.D. LAB BLOOD NON A DD-ON Performing Organization Address [facility] Co de Phone Number [facility] [address] [place] [address], [place] OW[place] [facility] [place] [address] [place] [address] * (ABNORMAL) Creatinine with Estimated GFR (12/19/2023 8:48 AM CDT) Creatinine 1.13(H) 0.59 - 1.04 mg/dL 12/19/2023 1:31 PM CDT OWAT Estimated GFR (eGFR) 53(L) >=60 mL/min/BSA 12/19/2023 1:31 PM CDT OWAT Comment: Estimated GFR calculated using the 2020 CKD_EPI creatinine equation. Blood (Blood, Venous) 12/19/2023 8:48 AM CDT 12/19/2023 12:57 PM CDT Iván Saleh M.D. LAB BLOOD ADD-O N Performing Organization Address [facility]/ZIP Co de Phone Number [facility] [address] [place] [address], [place] [facility] [place] [address] [place] [address] * DX Abdomen 1 View (12/12/2023 12:17 [...] colon.Degenerative changes. Bibasilar atelectasis. Hung Botello M.D. IMG DIAGNOSTIC IMAGI NG PROCEDURES * cheek, right upper 14 Mohs micrographic surgery-Dermatology Image Exam (12/12/2023 12:00 AM CDT) Only the most recent of3 resultswithin the time period is included. Narrative [facility] - 12/13/2023 10:54 AM CDT This order has been created and auto-finalized to support the import of images acquired without order. The clinical documentation to support these images can be found on the encounter that produced images. Provider Not In System IMG NON RAD IMAGI NG PROCEDURES [facility] NA * PETERSON Excision 1-2 sites (12/05/2023 2:00 PM CDT) Narrative Pepe Lobo M.D. - 12/05/2023 2:00 PM CDT Pepe Lobo M.D. ? 12/06/2023 10:42 AM PREOP INDICATION: ??Scar revision. Date of Surgery: 12/05/2023 Surgeon: Pepe Lobo M.D. Clean In Places Operator: Augusta Peña M.D. Location: [place] ?? Bldg:GO ?? Floor:16 ?? Room:[facility] Visit Type: Outpatient PreOp Diagnosis: ??Hypertrophic scar s/p Mohs surgery Anatomic Location: ??Right cheek Preoperative size: ??10.8 x 8 cm Procedure: ??Scar Excision with intermediate layered closure, and full-thickness skin graft. Procedural pause conducted to verify: correct patient identity, procedure to be performed and as applicable, correct side and site, correct patient position, and availability of implants, special equipment or special requirements. INFORMED CONSENT Discussed the risks, benefits, alternatives, and the necessity of other members of the healthcare team participating in the procedure. ?? All questions answered and consent given. PATIENT EDUCATION Ready to learn, no apparent learning barriers were identified; learning preferences include listening. ??Explained diagnosis and treatment plan; patient expressed understanding of the content. Preoperative medications: None Anesthesia used was 1% lidocaine with 1:200,000 epinephrine. ??The skin was prepped in a sterile fashion with Hibiclens. ??The hypertrophic scar was excised along the border of the previous bilobe flap through the skin and through the subcutaneous tissue. The wound edges were widely undermined as needed, and hemostasis was obtained with electrocoagulation. ??4-0 Monocryl and 5 0 Monocryl subcutaneous stitches and 6 0 Prolene skin sutures were used to close the hypertrophic scar along the bilobe flap. ??Final postoperative area size: ??10.8 x 8.2 cm. To avoid anatomical distortion of the lateral canthus/lower eyelid at the right malar cheek/infra ocular region border, a template was made of the defect, and a full-thickness skin graft was carefully planned and harvested from the right supraclavicular region. ??The graft was defatted and trimmed to fit the defect. ??After hemostasis was obtained with electrocoagulation, the graft was sutured into place with 5-0 fast gut skin sutures skin sutures. ??A bolster bandage was sutured with 4-0 nylon tie-over bolster sutures. ??The donor area was converted to a fusiform defect and closed with 4-0 monocryl subcutaneous sutures and 5-0 fast gut skin sutures. ??Final graft size: ??2.1 x 1.5 cm. ??Estimated blood loss: Minimal. ?? Complications: None. ??Wound care: Routine. Postoperative medications: Antibiotics - cefadroxil 500 mg b.i.d. times 10 days Pepe Lobo M.D. DERM PROCEDURE [facility] * (ABNORMAL) Comprehensive Metabolic Panel (02/18/2023 12:37 PM CDT) Potassium, S 4.6 3.6 - 5.2 mmol/L 02/18/2023 1:39 PM CDT DTL Sodium, S 140 135 - 145 mmol/L 02/18/2023 1:39 PM CDT DTL Chloride, S 104 98 - 107 mmol/L 02/18/2023 1:39 PM CDT DTL Bicarbonate, S 25 22 - 29 mmol/L 02/18/2023 1:39 PM CDT DTL Anion Gap 11 7 - 15 02/18/2023 1:39 PM CDT DTL BUN (Blood Urea Nitrogen), S 30(H) 6 - 21 mg/dL 02/18/2023 1:39 PM CDT DTL Creatinine 1.33(H) 0.59 - 1.04 mg/dL 02/18/2023 1:39 PM CDT DTL Estimated GFR (eGFR) 44(L) >=60 mL/min/BS A 02/18/2023 1:39 PM CDT DTL Comment: Estimated GFR calculated using the 2020 CKD_EPI creatinine equation. Calcium, Total, S 9.2 8.8 - 10.2 mg/dL 02/18/2023 1:39 PM CDT DTL Glucose, S 93 70 - 140 mg/dL 02/18/2023 1:39 PM CDT DTL Protein, Total, S 6.6 6.3 - 7.9 g/dL 02/18/2023 1:39 PM CDT DTL Albumin, S 4.5 3.5 - 5.0 g/dL 02/18/2023 1:39 PM CDT DTL Aspartate Aminotransferase (AST), S 20 8 - 43 U/L 02/18/2023 1:39 PM CDT DTL Alkaline Phosphatase, S 60 35 - 104 U/L 02/18/2023 1:39 PM CDT DTL Alanine Aminotransferase (ALT), S 14 7 - 45 U/L 02/18/2023 1:39 PM CDT DTL Bilirubin, Total, S <0.2 <=1.2 mg/dL 02/18/2023 1:39 PM CDT DTL Blood (Blood, Venous) 02/18/2023 12:37 PM CDT 02/18/2023 1:22 PM CDT Pepe Lobo M.D. LAB BLOOD ADD-ON [facility] [address] [place] [address], [facility] DTL [facility] [address] [place] [address] from Last 3 Months or Most Recently Relevant to Health Maintenance Care Teams Associate Dentist Relationship Specialty Start Date End Date None Reported, Pcp PCP - General Family Medicine 02/06/23
--- OUTSIDE RECORDS SUMMARY | 2023-12-24 14:53 | XMS_ITS | Referral Summary ---
Author Organization [facility] Address [address] [place] [address] Care Team Providers Care Oil Well Cable Tool Operator Name Role Phone None Reported, Pcp Primary Care Provider Unavail able Source Comments Patient records contain information from all sites at [facility]. For routine questions regarding patient records, call [phone] during business hours, M-F 8:00 AM - 5:00 PM Central Time. Record requests for emergency care only can be directed to [phone] at any time.[facility] Encounters Date Type Department Care Team Description 12/19/2023 8:39 AM CDT - 12/19/2023 11:59 PM CDT Hospital Encounter Department of Laboratory Medicine in [address] [phone] Iván Sky M.D. Constipation; Diabetes Mellitus Type 2 With Diabetic Neuropathy (HCC) Discharge Disposition: Home or Self Care 12/12/2023 Ancillary Procedure Department of Dermatology 12/12/2023 3:00 PM CDT Nurse Only Department of Dermatology in [place], [place] [address] [place] [phone] Augusta Peña M.D. Anderson, Devon S, RAlokNAlok Discharge Disposition: Home or Self Care 12/12/2023 11:57 AM CDT - 12/12/2023 11:59 PM CDT Hospital Encounter Department of Radiology, [facility], in [place], [place] [address] [place] [phone] Hung Botello M.D. Constipation Discharge Disposition: Home or Self Care 12/12/2023 1:10 PM CDT Comprehensive Visit Division of Gastroenterology in [place], [place] [address] [place] [phone] Hung Botello M.D. Mehanna Al Snih, Gad, M.D. Diabetes Mellitus Type 2 With Diabetic Neuropathy (HCC) (Primary Dx); Constipation; Pain Abdominal Chronic 12/11/2023 7:00 AM CDT Clinical Communication Virtual Review in [place], [place] 200 [place] [address] Pre-visit Intake 12/05/2023 Ancillary Procedure Department of Dermatology 12/05/2023 2:00 PM CDT Procedure visit Department of Dermatology in [place], [place] [address] [place] [phone] Pepe Lobo M.D. Scar (Primary Dx); Pain Cutaneous; Cicatricial Ectropion Right Lower Eyelid Discharge Disposition: Home or Self Care 10/10/2023 Ancillary Procedure Department of Dermatology 10/10/2023 3:15 PM CDT Office Visit Department of Dermatology in [address] [phone] Pepe Lobo M.D. Scar (Primary Dx) Discharge Disposition: Home or Self Care 10/01/2023 Clinical Communication Department of Dermatology in [address] [phone] Pepe Lobo M.D. 09/27/2023 Clinical Communication Division of Gastroenterology in [address] [phone] Hung Botello M.D. Pre-visit Testing Orders; GI Motility from Last 3 Months Allergies Active Allergy Reactions Criticality Noted Date [...] a day. Active blood sugar diagnostic strips ([employer] Ultra Test Strips) 1 test once as [...] Overview: Added automatically from request for surgery [id number] Sinusitis Chronic 05/05/2018 Tendinitis Bicipital Left 10/22/2017 [...] rash. Has not established with Rheumatology locally. Social History Tobacco Use Types Packs/Day Years [...] your living situation today? I have a [facility] place to live 01/31/2023 Sex and [...] CDT Comprehensive Visit Division of Endocrinology in [place], [place] 200 [place] [phone] Iván Sky M.D. 200 [place] [phone] 01/22/2024 11:00 AM CDT Clinical Support Enema Prep Facility in [place], [place] 200 [place] [phone] Hung Botello M.D. [address] [place] [phone] 01/22/2024 12:30 PM CDT Appointment Division of Gastroenterology in [place], [place] [address] [place] [phone] Hung Botello M.D. [address] [place] [phone] 03/05/2024 7:15 AM CDT Appointment Department of Radiology, [facility] in [place], [place] [address] [place] [phone] Hung Botello M.D. [address] [place] [phone] 03/06/2024 8:15 AM CDT Appointment Department of Radiology, [facility], in [place], [place] [address] [place] [phone] Hung Botello M.D. [address] [place] [phone] 03/07/2024 8:00 AM CDT Appointment Department of Radiology, [facility] in [place], [place] [address] [place] [phone] Hung Botello M.D. [address] [place] [phone] Procedures Procedure Name Priority Date/Time Associated Diagnosis [...] PANEL, S Routine 06/23/2019 9 :20 AM ROTARY MACHINE OPERATOR EXTI THYROID-STIMULATING HORMONE-SENSITIVE (S-TSH), S Routine 06/23/2019 9:20 AM ROTARY MACHINE OPERATOR from Last 3 Months or Most Recently [...] Iván Saleh M.D. LAB BLOOD ADD-O N [facility] [address] [place] [address], [place] OW[place] [facility] in [place] [address] [place] [address] * Glucose, Fasting (12/19/2023 8:48 AM CDT) Glucose, P 88 70 - 100 mg/dL 12/19/2023 1:12 PM CDT OWAT Last Intake 11 hr 12/19/2023 12:50 PM CDT OWAT Blood (Blood, Venous) 12/19/2023 8:48 AM CDT 12/19/2023 12:50 PM CDT Iván Saleh M.D. LAB BLOOD NON A DD-ON Performing Organization Address City/[facility]/ZIP Co de Phone Number [facility] [address] [place] [address], [place] [facility] in [place] [address] [place] [address] * (ABNORMAL) Creatinine with Estimated GFR (12/19/2023 8:48 AM CDT) Creatinine 1.13(H) 0.59 - 1.04 mg/dL 12/19/2023 1:31 PM CDT OWAT Estimated GFR (eGFR) 53(L) >=60 mL/min/BSA 12/19/2023 1:31 PM CDT OWAT Comment: Estimated GFR calculated using the 2020 CKD_EPI creatinine equation. Blood (Blood, Venous) 12/19/2023 8:48 AM CDT 12/19/2023 12:57 PM CDT Iván Saleh M.D. LAB BLOOD ADD-O N [facility] [address] [place] [address], [place] [facility] in [place] [address] [place] [address] * DX Abdomen 1 View (12/12/2023 12:17 [...] of Surgery: 12/05/2023 Surgeon: Pepe Lobo M.D. Software Test Manager: Augusta Peña M.D. Location: [place] ?? Bldg:GO ?? Floor:16 ?? Room:[facility] Visit Type: Outpatient PreOp Diagnosis: ??Hypertrophic scar [...] cefadroxil 500 mg b.i.d. times 10 days [place] M Demer M.D. DERM PROCEDURE MALGORZATA PATTERSON * (ABNORMAL) [...] CDT Pepe Lobo M.D. LAB BLOOD ADD-ON [facility] [address] [place] [address], [facility] [address] [place] [address] from Last 3 Months or Most Recently Relevant to Health Maintenance Care Teams Oil Well Cable Tool Operator Relationship Specialty Start Date End Date None Reported, Pcp PCP - General Family Medicine 02/06/23
--- OUTSIDE RECORDS SUMMARY | 2023-12-24 14:53 | XMS_ITS | Encounter Summary ---
Author Organization [facility] Address [address] [place] [address] Care Team Providers Care Flamer Sealer Name Role Phone None Reported, Pcp Primary Care Provider Unavail able Reason for Referral * Outpatient (Routine) - Authorized Specialty Diagnoses / Procedures Referred By Contac t Referred To Contact Diagnoses Pain Abdominal Chronic Procedures PMR Trigger Point Injection (Procedure Only) Iván Sky M.D. [address] [place] [phone] [facility] Referral ID Status Reason Start Date Expiration Date V isits Requested Visits Authorized [id number] Authorized 12/12/2023 12/11/2024 1 1 * Outpatient (Routine) - Authorized Specialty Diagnoses / Procedures Referred By Contac t Referred To Contact Endocrinology Diagnoses Constipation Diabetes Mellitus Type 2 With Diabetic Neuropathy (HCC) Iván Sky M.D. 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 200 [place] [phone] Iván Sky M.D. 200 [place] [phone] Diabetes Mellitus Type 2 With Diabetic Neuropathy (HCC) (Primary Dx); Constipation; Pain Abdominal Chronic Social History Tobacco Use Types Packs/Day Years [...] Date Recorded Employment status Working with temporary [employer] 01/31/2023 Housing Stability Answer Date Recorded What is your living situation today? I have a [facility] place to live 01/31/2023 Sex and Gender Information Value Date Recorded Sex Assigned at Female 10/06/2023 10:05 AM CDT Gender Identity Female 10/06/2023 10:05 AM CDT Sexual Orientation Straight 10/06/2023 10 :05 AM CDT documented as of this encounter Last Filed Vital Signs Vital Sign Reading Time Taken Comments Blood Pressure - - Pulse - - Temperature - - Respiratory Rate - - Oxygen Saturation - - Inhaled Oxygen Concentration - - Weight 81.1 kg (178 lb 12.7 oz) 12/12/2023 1:08 PM CDT Height 163 cm (5' 4.17) 12/12/2023 1:08 PM CDT Body Mass Index 30.52 12/12/2023 1:08 PM CDT documented in this encounter Consult Notes * Iván Sky M.D. - 12/12/2023 1:10 PM CDT Subjective: Ms. Naty Barahona is a very pleasant 68 years old female patient presenting with chronic left lower quadrant abdominal pain. Pain goes back to 20-30 years ago starts in the left lower quadrant area and progresses to become diffuse. It is of daily episodes, lasting 30 minutes to hold day with each episode. It used to be related to oral intake, within 30 minutes, however became independent recently. It is also present before passing a bowel movement and relieved by passing a bowel movement but not consistently. It is associated with nausea that is mostly present with the pain but can also occur after eating or randomly throughout the day, postprandial fullness with early satiety, and bloating. She denies having vomiting, weight loss, or hematochezia. She currently uses MiraLax 2 caps daily and senna 1 tablet twice daily. On this regimen she passes 1 bowel movement every 2 days of either small unformed or watery stools ([place] 5-7) or large unformed stools ([place] 6) with drastic increase in abdominal pain and fecal incontinence episodes occurring with the last type. She has no straining but sensation of incomplete evacuation all of the time. The episodes of fecal incontinence occur once weekly and described as severe urgency with inability to make it to the toilet in time. She has a restricted her diet for about 20 years with dairy free, no seeds, no red meat or pork, and decreased fatty food due to increase in symptoms on these specific types of food. She has been previously investigated with a colonoscopy and upper endoscopy are ago that was reported to be normal by the patient (records are not present for review). She takes hyoscyamine 0.375 mg nightly for her with the pain. She is currently on Trulicity that was started 7 years ago for her diabetes. She has not sure aboutthe evolution of her symptoms about 7 years ago but has generally worse symptoms over the years. Has a history of 1 vaginal delivery with no tears and no episiotomy. Past medical and surgical history: Diabetes with peripheral neuropathy and macular degeneration Dyslipidemia Hypothyroidism on replacement Reflux disease on lansoprazole Depression/anxiety Melanoma status post Mohs surgery History of TIAs Total abdominal hysterectomy with bilateral salpingo-oophorectomy 30 years ago Cystocele and bladder prolapse repair in 2012 Social history: Nonsmoker No alcohol consumption No marijuana use No illicit drug use Objective: Physical Exam: General appearance: Alert. Oriented to person, place, and time. Not in distress. Head and neck: Normal exam of the oral cavity. Lymphatics: No palpable cervical or axillary lymph nodes Abdomen: Soft abdomen with tenderness on palpation of left lower quadrant area with positive Carnett sign. TROY: Good anal squeeze. Reduced descent with reduced anal relaxation on simulated defecation. Assessment/Plan: Ms. Naty Barahona is a very pleasant 68-year-old female patient presenting with chronic left lower quadrant abdominal pain. Pain has been progressive over many years. Currently it is on daily episodes that can be related to oral intake or passing a bowel movement, however it can occur randomlythroughout the day. Patient also has postprandial bloating, fullness, and early satiety. She has chronic constipation currently on MiraLax 2 caps daily and senna 1 tablet twice daily. On this regimen she passes 1 bowel movement every two days of unformed to watery stools and 1-2 bowel movements a week of large unformed stools that is associated with urgency and fecal incontinence. She has recent EGD and colonoscopy that were reassuring. Last CT scan done in 2019 without IV contrast was normal. To note patient has iodine contrast allergy. She also has a history of total abdominal hysterectomy bilateral salpingo-oophorectomy and cystocele and bladder prolapse surgically corrected in 2011. Patient is on Trulicity since 7 years for her diabetes. We explained to the patient that the Trulicity we will cause delay in gastric emptying and could be contributing to her symptoms. Additionally,we can not assess gastric emptying properly without stopping the Trulicity. We would appreciate consult from our colleagues in endocrinology for advised on alternatives for Trulicity to control her diabetes. We can proceed with gastric emptying study and 48 hour colonic transit time after stopping the Trulicity for 5-6 weeks. Her physical exam is suggestive of an underlying defecatory disorder. We will perform anorectal manometry balloon expulsion test for assessment of defecation process. Additionally, on physical exam, she has signs of abdominal wall pain in left lower quadrant area. We will send for trigger point injection. In the meantime, it would be reasonable to try to stopped senna and increase MiraLax. We will decide on further adjustments based on the results of the studies ordered. #1 Chronic constipation with possible underlying defecatory disorder #2 Episodic fecal incontinence #3 Episodic nausea and postprandial fullness on Trulicity #4 Chronic abdominal pain 1. Get results of EGD and colonoscopy done last year for review 2. Anorectal manometry balloon expulsion test 3. We would appreciate consult from our colleagues in the endocrinology for modifying her diabetes regimen, mainly to stop Trulicity if possible 4. Gastric emptying study with 48 hour colonic transit time 5-6 weeks after stopping Trulicity 5. In the meantime we recommend stopping senna and increasing MiraLax dose. Consider starting Trulance at a later stage. 6. Imaging with MR enterography (FGFR permits) or CT without contrast can be considered later if symptoms persist. A total of 60 minutes for this encounter. This time accounts for patient interview and chart and records review. Plan was communicated with patient and all questions were answered. Case discussed with Dr. Hung Botello Electronically signed by: Mohamud Saleh M.D. 12/12/2023 10:31 PM CDT documented in this encounter Plan of Treatment Upcoming Encounters Date Type Department Care Team (Latest Contact Info) Description 01/22/2024 8:30 AM CDT Comprehensive Visit Division of Endocrinology in [address] [phone] Iván Sky M.D. [address] [place] [phone] 01/22/2024 11:00 AM CDT Clinical Support Enema Prep Facility in [address] [phone] Hung Botello M.D. [address] [place] [phone] 01/22/2024 12:30 PM CDT Appointment Division of Gastroenterology in [place], [place] [address] [place] [phone] Hung Botello M.D. [address] [place] [phone] 03/05/2024 7:15 AM CDT Appointment Department of Radiology, [facility], in [place], [place] [address] [place] [address] Hung Botello M.D. [address] [place] [phone] 03/06/2024 8:15 AM CDT Appointment Department of Radiology, [facility], in [place], [place] [address] [place] [address] Hung Botello M.D. [address] [place] [phone] 03/07/2024 8:00 AM CDT Appointment Department of Radiology, [facility], in [place], [place] [address] [place] [address] Hung Botello M.D. [address] [place] [address] Scheduled Referrals Name Type Priority Associated Diagnoses Order Schedule Endocrinology - Diabetes consult (clinic) Outpatient Referral Routine Constipation Diabetes Mellitus Type 2 With Diabetic Neuropathy (HCC) Expected: 12/12/2023, Expires: 03/13/2025 documented as of this encounter Results * Glucose, Fasting (12/19/2023 8:48 AM CDT) Glucose, P 88 70 - 100 mg/dL 12/19/2023 1:12 PM CDT OWAT Last Intake 11 hr 12/19/2023 12:50 PM CDT OWAT Blood (Blood, Venous) 12/19/2023 8:48 AM CDT 12/19/2023 12:50 PM CDT Iván Saleh M.D. LAB BLOOD NON A DD-ON [facility] [address] [place] [address], [place] [facility] in [place] [address] [place] [address] * (ABNORMAL) Creatinine with Estimated GFR (12/19/2023 8:48 AM CDT) Creatinine 1.13(H) 0.59 - 1.04 mg/dL 12/19/2023 1:31 PM CDT OWAT Estimated GFR (eGFR) 53(L) >=60 mL/min/BSA 12/19/2023 1:31 PM CDT OWAT Comment: Estimated GFR calculated using the 2020 CKD_EPI creatinine equation. Blood (Blood, Venous) 12/19/2023 8:48 AM CDT 12/19/2023 12:57 PM CDT Iván Saleh M.D. LAB BLOOD ADD-O N Performing Organization Address City/[facility]/ZIP Co de Phone Number [facility] [address] [place] [address], [facility] OWAT [facility] in [place] [address] [place] [address] * (ABNORMAL) Hemoglobin A1c (12/19/2023 8:48 AM [...] Iván Saleh M.D. LAB BLOOD ADD-O N [facility] [address] [place] [address], [facility] in [place] [address] [place] [address] documented in this encounter Visit Diagnoses Diagnosis Diabetes Mellitus Type 2 With Diabetic Neuropathy (HCC)- Primary Constipation Pain Abdominal Chronic documented in this encounter Care Teams Flamer Sealer Relationship Specialty Start Date End Date None Reported, Pcp PCP - General Family Medicine 02/06/23 documented as of this encounter
--- OUTSIDE RECORDS SUMMARY | 2023-12-24 14:54 | XMS_ITS | Encounter Summary ---
Author Organization [facility] Address [address] [place] [address] Care Team Providers Care Boiler Service Technician Name Role Phone None Reported, Pcp Primary Care Provider Unavail able Encounter Details Date Type Department Care Team (Late st Contact Info) Description 12/05/2023 Ancillary Procedure Department of Dermatology Social History [...] Date Recorded Employment status Working with temporary [employer] 01/31/2023 Housing Stability Answer Date Recorded What is your living situation today? I have a [employer] place to live 01/31/2023 Sex and Gender Information Value Date Recorded Sex Assigned at Female 10/06/2023 10:05 AM CDT Gender Identity Female 10/06/2023 10:05 AM CDT Sexual Orientation Straight 10/06/2023 10 :05 AM CDT documented as of this encounter Plan of Treatment Upcoming Encounters Date Type Department Care Team (Latest Contact Info) Description 01/22/2024 8:30 AM CDT Comprehensive Visit Division of Endocrinology in [place], [place] [address] [place] [phone] Iván Sky M.D. 200 [place] [phone] 01/22/2024 11:00 AM CDT Clinical Support Enema Prep Facility in [place], [place] [address] [place] [phone] Hung Botello M.D. 200 [place] [phone] 01/22/2024 12:30 PM CDT Appointment Division of Gastroenterology in [place], [place] [address] [place] [phone] Hung Botello M.D. [address] [place] [phone] 03/05/2024 7:15 AM CDT Appointment Department of Radiology, [place], [place] [address] [place] [phone] Hung Botello M.D. [address] [place] [phone] 03/06/2024 8:15 AM CDT Appointment Department of Radiology, [facility] in [place], [place] [address] [place] [phone] Hung Boetllo M.D. [address] [place] [phone] 03/07/2024 8:00 AM CDT Appointment Department of Radiology, [facility], in [place], [place] [address] [place] [phone] Hung Botello M.D. [address] [place] [phone] documented as of this encounter Procedures Procedure Name Priority Date/Time Associated Diagnosis Comments DERMATOLOGY IMAGE EXAM Routine 12/05/2023 12:00 AM CDT documented in this encounter Results * cheek, right upper 14 Mohs micrographic surgery-Dermatology Image Exam (12/05/2023 12:00 AM CDT) Narrative IIMS - 12/06/2023 8:13 AM CDT This order has been created and auto-finalized to support the import of images acquired without order. The clinical documentation to support these images can be found on the encounter that produced images. Provider Not In System IMG NON RAD IMAGI NG PROCEDURES [facility]IM[facility] NA documented in this encounter Visit Diagnoses Not on filedocumented in this encounter Care Teams Boiler Service Technician Relationship Specialty Start Date End Date None Reported, Pcp PCP - General Family Medicine 02/06/23 documented as of this encounter
--- OUTSIDE RECORDS SUMMARY | 2023-12-24 14:54 | XMS_ITS | Encounter Summary ---
Author Organization [facility] Address [address] [place] [address] Care Team Providers Care Supervisory Clerk Name Role Phone None Reported, Pcp Primary Care Provider Unavail able Encounter Details Date Type Department Care Team ([facility] st Contact Info) Description 10/01/2023 Clinical Communication Department of Dermatology in [place], [place] [address] [place] [phone] Pepe Lobo M.D. [address] [place] [address] Social History Tobacco Use Types Packs/Day Years [...] your living situation today? I have a [facility] place to live 01/31/2023 Sex and Gender Information Value Date Recorded Sex Assigned at Female 10/06/2023 10:05 AM CDT Gender Identity Female 10/06/2023 10:05 AM CDT Sexual Orientation Straight 10/06/2023 10 :05 AM CDT documented as of this encounter Miscellaneous Notes * Telephone Encounter - SatnamflacaCorina Kan - 10/01/2023 8:20 AM CST ----- Message from Pepe Lobo M.D. sent at 09/30/2023 5:24 PM SPIRITUAL CARE COORDINATOR ----- Regarding: RE: Scar Recheck Can you please overbook the patient AURELIO on my calendar (at her earliest convenience). 10/09 is a reasonable option, but I'm happy to accommodate others. She suffered significant complications after our procedure and it is essential that she has the easiest possible pathway to close clinical follow-up and (any potential) scar revision procedures. Thank you for your understanding and assistance in advance. -AMD ----- Message ----- From: Corina Alvarado Sent: 09/30/2023 8:10 AM SPIRITUAL CARE COORDINATOR To: Jannet Malone R.N.; Pepe Lobo M.D.; # Subject: RE: Scar Recheck Good morning Dr Lobo, Unfortunately this is the first available slot we could get her in and it is your first available slot. I was not able to add on any sooner per my PASS supervision. Thank you, [facility] PASS ----- Message ----- From: Pepe Lobo M.D. Sent: 09/27/2023 4:59 PM SPIRITUAL CARE COORDINATOR To: aJnnet Malone R.N.; Corina Alvarado; # Subject: RE: Scar Recheck Did she state that she is happy with this timeline? She has had significant complications throughout her surgical course and we need to be able to get her in for prompt re-evaluation, provided this is her goal. -AMD ----- Message ----- From: Corina Alvarado Sent: 09/27/2023 3:57 PM SPIRITUAL CARE COORDINATOR To: Jannet Malone R.N.; Pepe Lobo M.D. Subject: RE: Scar Recheck An, This patient has been scheduled in an open slot with Dr. Lobo on 11/14. Thank you, [facility] PASS ----- Message ----- From: Jannet Malone R.N. Sent: 09/27/2023 3:40 PM SPIRITUAL CARE COORDINATOR To: Rst Cosmo Scheduling Subject: FW: Scar Recheck ----- Message ----- From: Pepe Lobo M.D. Sent: 09/27/2023 3:40 PM SPIRITUAL CARE COORDINATOR To: Rst Cosmo Rogo Pos Subject: RE: Scar Recheck How about PM of 10/09? -AMD ----- Message ----- From: Luis Alberto Lozoya Sent: 09/27/2023 9:33 AM SPIRITUAL CARE COORDINATOR To: Pepe Lobo M.D. Subject: Scar Recheck Good Morning Naty Christensen needs an appointment with you for a scar recheck, is there a good date and time we could place her in, or any suggestions for her? Please let us know, so we can get her scheduled. Thank you for your time! Luis Alberto - PASS ITUAL CARE COORDINATOR documented in this encounter Plan of Treatment Upcoming Encounters Date Type Department Care Team (Latest Contact Info) Description 01/22/2024 8:30 AM CDT Comprehensive Visit Division of Endocrinology in [address] [phone] Iván Sky M.D. [address] [place] [phone] 01/22/2024 11:00 AM CDT Clinical Support Enema Prep Facility in [address] [phone] Hung Botello M.D. [address] [place] [phone] 01/22/2024 12:30 PM CDT Appointment Division of Gastroenterology in [address] [phone] Hung Botello M.D. [address] [place] [phone] 03/05/2024 7:15 AM CDT Appointment Department of Radiology, [facility], in [address] [phone] Hung Botello M.D. [address] [place] [phone] 03/06/2024 8:15 AM CDT Appointment Department of Radiology, [facility], in [place], [place] [address] [place] [address] Hung Botello M.D. [address] [place] [phone] 03/07/2024 8:00 AM CDT Appointment Department of Radiology, [facility] in [place], [place] [address] [place] [address] Hung Botello M.D. [address] [place] [phone] documented as of this encounter Visit Diagnoses Not on filedocumented in this encounter Care Teams Supervisory Clerk Relationship Specialty Start Date End Date None Reported, Pcp PCP - General Family Medicine 02/06/23 documented as of this encounter
--- OUTSIDE RECORDS SUMMARY | 2023-12-24 14:54 | XMS_ITS | Encounter Summary ---
Author Organization [facility] Address [address] [place] [phone] Care Team Providers Care Brush Painter Name Role Phone None Reported, Pcp Primary Care Provider Unavail able Reason for Referral * Outpatient (Routine) - Authorized Specialty Diagnoses / Procedures Referred By Contac t Referred To Contact Diagnoses Scar Procedures PETERSON Laser - Vbeam/pulse dye Augusta Peña M.D. [address] [place] [phone] [facility] Referral ID Status Reason Start Date Expiration Date V isits Requested Visits Authorized [id number] Authorized 12/05/2023 12/04/2024 1 1 * Outpatient (Routine) - Closed Specialty Diagnoses / Procedures Referred By Contac t Referred To Contact Dermatology Augusta Peña M.D. [address] [place] [phone] [facility] Referral ID Status Reason Start Date Expiration Date Visits Re quested Visits Authorized [id number] Closed 12/05/2023 06/05/2025 1 1 Scheduling Instructions Must be in afternoon following other appointments. Reason for Visit * Outpatient (Routine) - Closed Specialty Diagnoses / Procedures Referred By Contac t Referred To Contact Diagnoses Scar Procedures PETERSON Excision 1-2 sites Pepe Lobo M.D. [address] [place] [phone] [facility] Referral ID Status Reason Start Date Expiration Date Visits Re quested Visits Authorized [id number] Closed 10/10/2023 10/09/2024 1 1 Encounter Details Date Type Department Care Team (Latest Contact Info) Description 12/05/2023 2:00 PM CDT Procedure visit Department of Dermatology in [place], [place] [address] [place] [address] Pepe Lobo M.D. [address] [place] [address] Scar (Primary Dx); Pain Cutaneous; Cicatricial Ectropion Right Lower Eyelid Discharge Disposition: Home or Self Care Social [...] Date Recorded Employment status Working with temporary [employer] 01/31/2023 Housing Stability Answer Date Recorded What is your living situation today? I have a [facility] place to live 01/31/2023 Sex and [...] Pulse 61 12/05/2023 2:01 PM CDT Temperature - - Respiratory Rate - - Oxygen Saturation - - Inhaled Oxygen Concentration - - Weight - - Height - - Body Mass Index - - documented in this encounter Procedure Notes * Augusta Peña M.D. - 12/05/2023 2:00 PM CDTAssociated Order(s): PETERSON EXCISION 1-2 SITES PREOP INDICATION: Scar revision. Date of Surgery: 12/05/2023 Surgeon: Pepe Lobo M.D. Commercial Credit Reviewer: Augusta Peña M.D. Location: [facility]: Floor:16 Room:[facility] Visit Type: Outpatient PreOp Diagnosis: Hypertrophic scar s/p Mohs surgery Anatomic Location: Right cheek Preoperative size: 10.8 x 8 cm Procedure: Scar Excision with intermediate layered closure, and full-thickness skin graft. Procedural pause conducted to verify: correct patient identity, procedure to be performed and as applicable, correct side and site, correct patient position, and availability of implants, special equipment or special requirements. INFORMED CONSENT Discussed the risks, benefits, alternatives, and the necessity of other members of the healthcare team participating in the procedure. All questions answered and consent given. PATIENT EDUCATION Ready to learn, no apparent learning barriers were identified; learning preferences include listening. Explained diagnosis and treatment plan; patient expressed understanding of the content. Preoperative medications: None Anesthesia used was 1% lidocaine with 1:200,000 epinephrine. The skin was prepped in a sterile fashion with Hibiclens. The hypertrophic scar was excised along the border of the previous bilobe flap through the skin and through the subcutaneous tissue. The wound edges were widely undermined as needed, and hemostasis was obtained with electrocoagulation. 4-0 Monocryl and 5 0 Monocryl subcutaneous stitches and 6 0 Prolene skin sutures were used to close the hypertrophic scar along the bilobe flap.Final postoperative area size: 10.8 x 8.2 cm. To avoid anatomical distortion of the lateral canthus/lower eyelid at the right malar cheek/infra ocular region border, a template was made of the defect, and a full-thickness skin graft was carefully planned and harvested from the right supraclavicular region. The graft was defatted and trimmed tofit the defect. After hemostasis was obtained with electrocoagulation, the graft was sutured into place with 5-0 fast gut skin sutures skin sutures. A bolster bandage was sutured with 4-0 nylon tie-over bolster sutures. The donor area was converted to a fusiform defect and closed with 4-0 monocryl subcutaneous sutures and 5-0 fast gut skin sutures. Final graft size: 2.1 x 1.5 cm. Estimated blood loss: Minimal. Complications: None. Wound care: Routine. Postoperative medications: Antibiotics - cefadroxil 500 mg b.i.d. times 10 days documented in this encounter Consult Notes * Augusta Peña M.D. - 12/05/2023 2:00 PM CDT DERMATOLOGIC SURGERY CONSULTATION NOTE PATIENT NAME: Naty Barahona DATE OF : 1955, 68 y.o. DATE: 12/04/2023 STAFF PHYSICIAN: Dr. Pepe Lobo M.D. 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 female presents today in referral from Pepe Lobo M.D. for scar revision after a history of melanoma in-situ s/p Mohs with large bilobe transposition flap 12/2022 complicated by necrosis and infection which is now hypertrophic and painful. REVIEW OF SYSTEMS History of skin cancer ROS QUESTION YES NO Prior skin cancer [x] [] Prior melanoma [x] [] Organ Systems Heart disease/Heart Valve/Murmur [x] [] Pacemaker [] [x] Defibrillator [] [x] Lung disease or conditions [] [x] Liver Disease [] [x] Stroke/Seizure/Dementia [x] [] Cancer: [] [x] ID [] [x] Diabetes [x] [] Insulin dependent? [] [x] Organ Transplant: [] [x] Bleeding or healing problems [] [x] Blood Thinners Aspirin [x] [] Coumadin/Warfarin [] [x] Plavix [] [x] Others [] [x] Hypertension [] [x] Implants: [] [x] Habits Tobacco [] [x] Alcohol [] [x] The dermatologic surgery preoperative sheet was reviewed today in detail. CURRENT MEDICATIONS The medications for today's visit were reviewed OBJECTIVE VITALS SIGNS There were no vitals taken for this visit. PHYSICAL EXAMINATION General: well appearing female in no acute distress Skin: Focused skin examination was performed today of the surgical site(s) revealing erythematous scar, consistent with prior biopsy site(s), on the right cheek. DIAGNOSTICS REVIEW OF MEDICAL CHART: A review of the patient's medical chart and any referral form(s) was performed. I personally reviewed the patient's histopathology from the biopsy slides, and my impression is listed below in the assessment and plan. ASSESSMENT / PLAN #1 Right cheek hypertrophic scar s/p Mohs for melanoma in-situ with large bilobe transposition flap12/2022 complicated by necrosis and infection now hypertrophic and painful The patient is here today for scar revision. We reviewed the diagnosis(es)/indication(s) and treatment options. We reviewed associated risks, benefits, and alternatives. Risks included bleeding, infection, scar, recurrence, large wound, dehiscence, and sensation loss. Natural history of scar and expectations reviewed. After discussion, the patient consented to proceed. All questions were answered. Please refer to the operative note for complete details. Augusta Peña M.D. Associated attestation - Pepe Lobo M.D. - 12/06/2023 10:41 AM CDT I saw and evaluated the patient, participating in the alston elements of the service. I discussed the findings, assessment and plan with the resident/fellow and agree with resident/fellow???s findings and plan as documented in the resident/fellow's note. I was immediately available for the entirety ofthe procedure(s) and present for the alston and critical portions. Functional, symptom-driven, scar revision performed today. Narrow scar re- excision and primary repair performed over entire bilobed flap. The area of previous primary lobe necrosis was resected, released, and grafted from the ipsilateral supraclavicular skin as a means of improving eyelid position (with mild downward displacement of lateral canthus/lower lid pre-op) and improving scar symptoms/quality. Procedure was well tolerated. Recommend bolster and suture removal in 1 week. Duricef 500mg BID x 10 days prescribed out of caution given previous issues with staph aureus infection. All questions were answered to apparent satisfaction today. Pepe Lobo M.D. documented in this encounter Plan of Treatment Upcoming Encounters Date Type Department Care Team (Latest Contact Info) Description 01/22/2024 8:30 AM CDT Comprehensive Visit Division of Endocrinology in [place], [place] [address] [place] [address] MeIván Panda M.D. [address] [place] [phone] 01/22/2024 11:00 AM CDT Clinical Support Enema Prep Facility in [place], [place] [address] [place] [phone] Hung Botello M.D. [address] [place] [phone] 01/22/2024 12:30 PM CDT Appointment Division of Gastroenterology in [place], [place] [address] [place] [phone] Hung Botello M.D. [address] [place] [phone] 03/05/2024 7:15 AM CDT Appointment Department of Radiology, [facility], in [place], [place] [address] [place] [phone] Hung Botello M.D. [address] [place] [phone] 03/06/2024 8:15 AM CDT Appointment Department of Radiology, [facility], in [place], [place] [address] [place] [phone] Hung Botello M.D. [address] [place] [phone] 03/07/2024 8:00 AM CDT Appointment Department of Radiology, [facility], in [place], [place] [address] [place] [phone] Hung Botello M.D. [address] [place] [phone] Scheduled Orders Name Type Priority Associated Diagnoses Orde r Schedule PETERSON Laser - Vbeam/pulse dye Dermatology Routine Scar Expected: 01/02/2024, Expires: 03/06/2025 Scheduled Referrals Name Type Priority Associated Diagnoses Order Schedule Dermatology nurse visit (clinic) Outpatient Referral Routine Expected: 12/12/2023, Expires: 03/06/2025 documented as of this encounter Procedures Procedure Name Priority Date/Time Associated Diagnosis Comments PETERSON EXCISION 1-2 SITES Routine 12/05/2023 2:00 PM CDT Scar documented in this encounter Results * PETERSON Excision 1-2 sites (12/05/2023 2:00 PM CDT) Narrative Pepe Lobo M.D. - 12/05/2023 2:00 PM CDT Pepe Lobo M.D. ? 12/06/2023 10:42 AM PREOP INDICATION: ??Scar revision. Date of Surgery: 12/05/2023 Surgeon: Pepe Lobo M.D. Commercial Credit Reviewer: Augusta Peña M.D. Location: [facility] ?? dg: ?? Floor:16 ?? Room:[facility] Visit Type: Outpatient PreOp Diagnosis: ??Hypertrophic scar [...] Pepe Lobo M.D. DERM PROCEDURE MALGORZATA PATTERSON documented in this encounter Visit Diagnoses Diagnosis Scar- Primary Pain Cutaneous Cicatricial Ectropion Right Lower Eyelid documented in this encounter Administered Medications Inactive Administered Medications - up to 3 most recent administrations Medication Order MAR Action Action Date Dose Rate Site lidocaine-EPINEPHrine 1 %-1:100,000 injection 20 mL (XYLOCAINE W/EPI) 20 mL, infiltration, Once, On Yara 12/05/23 at 1730, For 1 dose Given 12/05/2023 5:00 PM CDT 20 mL lidocaine-EPINEPHrine 1%-1:200,000 injection 2-50 mL (XYLOCAINE W/EPI) 2-50 mL, injection, As needed, may repeat if the patient complains of pain/discomfort at the site up to 50 mL for entire procedure, Starting on Yara 12/05/23 at 1414, For 1 day Given 12/05/2023 4:58 PM CDT 22 mL lidocaine-sodium bicarbonate (buffered) 0.9%-0.84% injection 2 mL 2 mL, injection, Once, On Yara 12/05/23 at 1430, For 1 dose, Final lidocaine concentration is 0.9% (9 mg/mL) Given 12/05/2023 4:57 PM CDT 4 mL documented in this encounter Care Teams Brush Painter Relationship Specialty Start Date End Date None Reported, Pcp PCP - General Family Medicine 02/06/23 documented as of this encounter
--- OUTSIDE RECORDS SUMMARY | 2023-12-24 14:54 | XMS_ITS | Encounter Summary ---
Author Organization [facility] Address [address] [place] [address] Care Team Providers Care Vice President Medical Affairs Name Role Phone None Reported, Pcp Primary Care Provider Unavail able Encounter Details Date Type Department Care Team (Late st Contact Info) Description 10/10/2023 Ancillary Procedure Department of Dermatology Social History [...] Date Recorded Employment status Working with temporary [employer] 01/31/2023 Housing Stability Answer Date Recorded What is your living situation today? I have a [facility] place to live 01/31/2023 Sex and [...] CDT Comprehensive Visit Division of Endocrinology in [place], [place] [address] [place] [phone] Iván Sky M.D. 200 [place] [phone] 01/22/2024 11:00 AM CDT Clinical Support Enema Prep Facility in [place], [place] [address] [place] [phone] Hung Botello M.D. 200 [place] [phone] 01/22/2024 12:30 PM CDT Appointment Division of Gastroenterology in [place], [place] [address] [place] [phone] Hung Botello M.D. [address] [place] [phone] 03/05/2024 7:15 AM CDT Appointment Department of Radiology, [place], [place] [address] [place] [phone] Hung Botello M.D. [address] [place] [phone] 03/06/2024 8:15 AM CDT Appointment Department of Radiology, [facility] in [place], [place] [address] [place] [phone] Hung Botello M.D. [address] [place] [phone] 03/07/2024 8:00 AM CDT Appointment Department of Radiology, [facility], in [place], [place] [address] [place] [phone] Hung Botello M.D. [address] [place] [phone] documented as of this encounter Procedures Procedure Name Priority Date/Time Associated Diagnosis Comments DERMATOLOGY IMAGE EXAM Routine 10/10/2023 12:00 AM CDT documented in this encounter Results * cheek, right upper 14 Mohs micrographic surgery-Dermatology Image Exam (10/10/2023 12:00 AM CDT) Narrative [facility] - 10/10/2023 3:37 PM CDT This order has been created and auto-finalized to support the import of images acquired without order. The clinical documentation to support these images can be found on the encounter that produced images. Provider Not In System IMG NON RAD IMAGI NG PROCEDURES [facility] NA documented in this encounter Visit Diagnoses Not on filedocumented in this encounter Care Teams Vice President Medical Affairs Relationship Specialty Start Date End Date None Reported, Pcp PCP - General Family Medicine 02/06/23 documented as of this encounter
--- OUTSIDE RECORDS SUMMARY | 2023-12-24 14:54 | XMS_ITS | Clinical Summary ---
Author Organization [facility] Address [place], [place] [address] Care Team Providers Care Tourist Camp Attendant Name Role Phone Aruna Mahan MD Primary Care Provider + Allergies Active Allergy Reactions Criticality Noted Date Comments Exenatide Hypoglycemia,Other - Describe In Comment Field Unknown 05/24/2017 Psychologyical changes Codeine Rash 05/24/2017 Prochlorperazine Anaphylaxis High 05/24/2017 Meperidine Hallucinations 05/24/2017 Gabapentin Other - Describe In Comment Field 05/24/2017 Psychological changes Iodine Angioedema 05/24/2017 Monosodium Glutamate Anaphylaxis High 08/30/2017 Conjugated Estrogens Palpitations Medium 10/11/2017 Oral estrogens - heart palpitations Pumpkin Anaphylaxis High 10/11/2017 Medications Medication Sig Dispensed Refills Start Date End Date Status ascorbic acid, vitamin C, (VITAMIN C) 1,000 mg tabletIndications:De pression with anxiety Take 1 tablet by mouth once daily. 0 05/24/2017 Active multivitamin (MVI) tablet Take 1 tablet by mouth once daily. 0 10/11/2017 Active vitamin B complex (B COMPLEX 1) tablet Take 1 tablet by mouth once daily. 0 10/11/2017 Active Cranberry 400 mg capsule Take by mouth. 0 10/11/2017 Active ONETOUCH DELICA LANCETS 30 gauge misc 07/11/2017 Active Lactobacillus rhamnosus GG 5 billion cell chew Take by mouth. 0 04/25/2018 Act marco a polyethylene glycol (MIRALAX) 17 g powder for solution Take 17 g by mouth. 0 04/25/2018 Active Sennosides (SENNA) 8.6 mg cap Take by mouth. 0 04/25/2018 Active aspirin chewable 81 mg chewable tablet Take 1 tablet by mouth once daily with a meal. 0 12/11/2018 Active blood-glucose meterIndications:Typ e 2 diabetes mellitus with diabetic neuropathy, without long-term current use of insulin (HC) Dispense meter, test strips, lancets covered by pt ins. E11.9 NIDDM type II - Test 1 time/day 1 Device 10/16/2019 Active rosuvastatin (CRESTOR) 20 mg tabletIndications:Mi xed hyperlipidemia Take 1 tablet by mouth at bedtime. 90 tablet 3 11/11/2019 Active estradioL (ESTRACE) 0.1 mg/g vaginal creamIndications:Atr ophic vaginitis Insert 1 g into the vagina at bedtime. 3x weekly 42.5 g 3 11/18/2019 Active levothyroxine (SYNTHROID) 75 mcg tabletIndications:Hy pothyroidism, unspecified type Take 1 tablet by mouth once daily. 90 tablet 3 11/30/2019 Active bumetanide (BUMEX) 1 mg tabletIndications:Di zziness,Peripheral edema TAKE 1 TABLET EVERY MORNING 90 tablet 05/23/2020 Active citalopram (CELEXA) 40 mg tabletIndications:De pression with anxiety TAKE 1 TABLET EVERY MORNING 90 tablet 05/23/2020 Active busPIRone (BUSPAR) 5 mg tabletIndications:De pression with anxiety TAKE 1 TABLET TWICE DAILY 180 tablet 05/23/2020 Active lansoprazole (PREVACID) 30 mg capsuleIndications:G astroesophageal reflux disease, unspecified whether esophagitis present TAKE 1 CAPSULE ONCE DAILY 30-60 MINUTES BEFORE A MEAL 90 capsule 05/23/2020 Active hyoscyamine (LEVBID) 0.375 mg Controlled-Release tabletIndications:Ga stroesophageal reflux disease, unspecified whether esophagitis present Take 1 tablet by mouth every 12 hours. 60 tablet 06/26/2020 Active blood sugar diagnostic (Blood Glucose Test) stripIndications:Typ e 2 diabetes mellitus with diabetic neuropathy, without long-term current use of insulin (HC) Test one times per day. Diabetes melliltus type II. 100 Each 3 02/02/2021 Active pioglitazone (ACTOS) 30 mg tabletIndications:Ty pe 2 diabetes mellitus with diabetic neuropathy, without long-term current use of insulin (HC) Take 1 Tablet (30 mg) by mouth once daily. 10/29/2023 Active pregabalin (Lyrica) 150 mg capsuleIndications:T ype 2 diabetes mellitus with diabetic neuropathy, without long-term current use of insulin (HC) Take 1 Capsule (150 mg) by mouth two times daily. 10/29/2023 Active dulaglutide (Trulicity) 0.75 mg/0.5 mL subcutaneous penIndications:Type 2 diabetes mellitus with diabetic neuropathy, without long-term current use of insulin (HC) Inject 1.5 mg subcutaneous once weekly. 10/29/2023 Active Active Problems Problem Noted Date Diagnosed Date History of basal cell carcinoma 10/30/2023 Malignant melanoma of face 10/30/2023 Anemia of unknown etiology 05/05/2018 Chronic sinusitis 05/05/2018 Dizziness 05/05/2018 Biceps tendinitis of left upper extremity 2017 Chronic left shoulder pain 09/20/2017 Lumbar stenosis 06/02/2017 Overview: Takes meloxicam as needed. Occasionally requires toradol but uses very sparingly. Frequent UTI 06/02/2017 Overview: Taking cranberry pills and using estrogen cream. Mild intermittent asthma without complication Overview: Related to h/o [place] Fever Bilateral leg edema 05/24/2017 CVA (cerebral vascular accident) 07/29/1998 Overview: Lacunar in 1998, with several TIAs since. Lupus (systemic lupus erythematosus) 07/29/1995 Overview: Affects her GI system usually. Occasionally has facial rash. Has not established with Rheumatology locally. Type 2 diabetes mellitus with diabetic neuropath y Overview: Actos and victoza is the combination [...] issues. She tolerates lyrica for her neuropathy. Mitral valve prolapse Symptomatic PVCs Depression with anxiety Overview: Has tried and failed Paxil, Prozac, Effexor. Pristiq helped the best but not covered by insurance. Currently on celexa with alprazolam as needed. Hyperlipidemia Overview: Has failed multiple statins. Currently tolerating crestor. GERD (gastroesophageal reflux disease) H/O peptic ulcer Hypothyroidism POTS (postural orthostatic tachycardia syndrome) Resolved Problems Problem Noted Date Diagnosed Date Resolved Date Acute pyelonephritis 05/05/2018 019 Encounters Date Type Department Care Team Description 10/29/2023 10:30 AM CDT Ancillary Procedure [facility] [address] [place] [address] 10/29/2023 9:30 AM CDT Office Visit [facility] [address] [place] [address] Hermelindo Arellano MD Musculoskeletal Problem (Consultation for RIGHT Shoulder pain /Progressively getting worse over the past 6 months ) 10/29/2023 Travel 10/10/2023 Nurse Triage [facility] [address] [place] [phone] Aleah Jung DO Arm Pain/problem from Last 3 Months Immunizations Name Administration Dates Next Due Influenza A (H1N1), Inactivated (Age >=3 Years) 04/28/2017 Influenza, IIV4 04/07/2019,05/05/2018 Pneumococcal conj 13-Valent (Prevnar 13) 019 Tdap 06/23/2019 Family History Medical History Relation Name Comments Cancer-breast Mother bilateral Relation Name Status Comments Father Mother Alive Social History Tobacco Use Types Packs/Day Years Used Date Smoking Tobacco: Never Smokeless Tobacco: Never Tobacco Cessation:Counseling Given: Yes Alcohol Use Standard Drinks/Week Comments No 0 (1 standard drink = 0.6 oz pur e alcohol) PHQ-2 Answer Date Recorded PHQ-2 Score 5 06/23/2019 Social Connections Answer Date Recorded Frequency of Communication with Friends and Fami ly Not on file 10/29/2023 Sex and Gender Information Value Date Recorded Sex Assigned at Not on file Gender Identity Not on file Sexual Orientation Not on file Obstetrics History Last Filed Vital Signs Vital Sign Reading Time Taken Comments Blood Pressure 116/75 10/29/2023 9:40 AM CDT Pulse 74 10/29/2023 9:40 AM CDT Temperature 37.9 ??C (100.3 ??F) 12/11/2018 9:30 AM C DT Respiratory Rate 16 05/20/2018 10:0 6 AM CDT Oxygen Saturation 95% 10/29/2023 9:40 AM CDT Inhaled Oxygen Concentration - - Weight 81.1 kg (178 lb 14.4 oz) 10/29/2023 9:40 AM CDT Height 165 cm (5' 4.96) 06/23/2019 8:20 AM IRONER Body Mass Index 29.81 06/23/2019 8:20 AM IRONER Plan of Treatment Health Maintenance Due Date Last Done Comments Hepatitis C screening for ag e 18-79 1972 Colonoscopy through age 75 1999 Zoster (shingles) series for age 50+ (1 of 2) 2004 DEXA/DXA scan for age 65+ 2019 Medicare Wellness for age 65+ 2019 Pneumococcal series for age 65+ (2 of 2 - PPSV23 or PCV20) 08/18/2019 06/23/2019 Mammogram for age 45-75 01/17/2020 01/17/20 19, 10/29/2017, 05/25/2016, Additional history exists BMI (ht and wt on same day) for age 18+ 06/23/2020 06/23/2019, 12/11/2018, 11/03/2018, Additional history exists Depression screening for age 12+ 06/23/2020 06/23/2019, 12/11/2018, 09/01/2018, Additional history exists COVID-19 vaccine series (2022- season) 2023 07/17/2022, 01/31/2022, 06/20/2021, Additional history exists Influenza for age 65+ 03/29/2024 04/07/2019 , 05/05/2018, 04/28/2017 Lipids for age 45-75 06/23/2024 06/23/2019, 12/11/2018, 08/22/2018, Additional history exists Tetanus booster 06/23/2029 06/23/2019 Tdap Completed 06/23/2019 Procedures Procedure Name Priority Date/Time Associated Diagnosis Comments XR SHOULDER 3 VIEWS RIGHT Routine 10/29/2023 10:33 AM CDT Rotator cuff syndrome of right shoulder Tendinopathy of right biceps tendon LIPID PANEL Routine 06/23/2019 9:20 AM IRONER Mixed hyperlipidemia XR MAMMO BILAT SCREENING Routine 01/16/2019 2:00 PM CDT Breast screening, unspecified from Last 3 Months or Most Recently Relevant to Health Maintenance Results * XR SHOULDER 3 VIEWS RIGHT (10/29/2023 10:33 AM CDT) Anatomical Region Laterality Modality SHOULDERS, SHOULDER R Computed R adiography 10/29/2023 2:54 PM CDT Narrative 10/29/2023 2:54 PM CDT For Patients: ??As a result of the Cures Act, medical imaging exams and procedure reports are released immediately into your electronic medical record. ??You may view this report before your referring provider. ??If you have questions, please contact your health care provider. Indication: Rotator cuff syndrome of right shoulder Technique: Right shoulder 3 views. Comparison: None. Findings: Mild spurring at the acromioclavicular joint with subchondral cystic change in the distal clavicle. Intact visualized ribs. Degenerative changes at the greater tuberosity. Mild joint space narrowing at the inferior glenohumeral joint. Impression: Mild degenerative joint disease right shoulder. Dictated by Ashu Patrick MD @ 10/29/2023 2:54:02 PM (Electronically Signed) Procedure Note Ashu Patrick MD - 10/29/2023 For Patients: As a result of the Cures Act, medical imagingexams and procedure reports are released immediately into your electronicmedical record. You may view this report before your referring provider.If you have questions, please contact your health care provider. Indication: Rotator cuff syndrome of right shoulder Technique: Right shoulder 3 views. Comparison: None. Findings: Mild spurring at the acromioclavicular joint with subchondral cysticchange in the distal clavicle. Intact visualized ribs. Degenerativechanges at the greater tuberosity. Mild joint space narrowing at theinferior glenohumeral joint. Impression: Mild degenerative joint disease right shoulder. Dictated by Ashu Patrick MD @ 10/29/2023 2:54:02 PM (Electronically Signed) Hermelindo Arellano MD GENERAL IMAGING * (ABNORMAL) LIPID PANEL (06/23/2019 9:20 AM IRONER) CHOLESTEROL,TOTAL 182 100 - 199 mg/dL 06/23/2019 10:01 AM IRONER [facility] TRIGLYCERIDES 294(H) <150 mg/dL 06/23/2019 10:01 AM [facility] HDL CHOLESTEROL 48 >40 mg/dL 9 10:01 AM IRONER [facility] NON-HDL CHOLESTEROL 134 <145 mg/dl 06/23/2019 10:01 AM IRONER [facility] CHOL/HDL RATIO 3.79 <4.50 06/23/2019 10:01 AM IRONER [facility] LDL CHOLESTEROL 75 <=130 mg/dL 06/23/2019 10:01 AM IRONER [facility] PROVIDER ORDERED STATUS RANDOM 06/23/2019 10:01 AM [facility] Blood BLOOD SPECIMEN / Unknown Butterfly / Unknown 06/23/2019 9:20 AM IRONER 06/23/2019 9:20 AM IRONER Sydney Lakhani NP CHEMISTRY Performing Organization Address City/State/[facility] [place] [address] * XR MAMMO BILAT SCREENING (01/16/2019 2:00 PM CDT) Anatomical Region Laterality Modality BREASTS, Breast Left, Breast Right Bilateral Mammography Impressions 01/19/2019 6:53 AM CDT ??There is no radiographic evidence for malignancy. ??Recommend annual mammograms. A lay language report of this examination will be provided to the patient. MAMMOGRAM ASSESSMENT: ??ACR 2 Benign Narrative 01/19/2019 6:53 AM CDT XR MAMMO BILAT SCREENING [[id number]] CLINICAL HISTORY: ??This is an asymptomatic 63 y.o. patient. INDICATION FOR EXAM: Mammogram Screening. TECHNIQUE: CC & MLO views were obtained. ??This digital study was evaluated with the assistance of Computer-Aided Detection. COMPARISON FILMS: Yes 10/29/17 [facility] FINDINGS: ??Mammographically, the breast tissue has scattered fibroglandular densities. ??No suspicious masses or microcalcifications. ?? Benign appearing calcifications within left breast. Biopsy clip left breast. Aleah Jung DO MAMMO from Last 3 Months or Most Recently Relevant to Health Maintenance Care Teams Tourist Camp Attendant Relationship Specialty Start Date End Date Aruna Mahan MD [address] [place] [address] PCP - General Family Practice 10/30/23
--- OUTSIDE RECORDS SUMMARY | 2023-12-24 14:54 | XMS_ITS | Encounter Summary ---
Author Organization [facility] Address [address] [place] [id number] Care Team Providers Care Customer Experience Leader Name Role Phone None Reported, Pcp Primary Care Provider Unavail able Reason for Referral * Outpatient (Routine) - Authorized Specialty Diagnoses / Procedures Referred By Contac t Referred To Contact Diagnoses Bloating Abdominal Procedures NM Gastric Mucosa SPECT Hung Botello M.D. [address] [place] [phone] [facility] Referral ID Status Reason Start Date Expiration Date V isits Requested Visits Authorized [id number] Authorized 09/27/2023 09/26/2024 8 8 PT ARTIST * Outpatient (Routine) - Authorized Specialty Diagnoses / Procedures Referred By Contac t Referred To Contact Diagnoses Incontinence Fecal Constipation Procedures Enema Prep Hung Botello M.D. [address] [place] [phone] [facility] Referral ID Status Reason Start Date Expiration Date V isits Requested Visits Authorized [id number] Authorized 09/27/2023 09/26/2024 1 1 PT ARTIST * Outpatient (Routine) - Authorized Specialty Diagnoses / Procedures Referred By Contac t Referred To Contact Diagnoses Incontinence Fecal Constipation Procedures Anorectal Manometry Hung Botello M.D. [address] [place] [phone] [facility] Referral ID Status Reason Start Date Expiration Date V isits Requested Visits Authorized [id number] Authorized 09/27/2023 09/26/2024 1 1 PT ARTIST * Outpatient (Routine) - Authorized Specialty Diagnoses / Procedures Referred By Contac t Referred To Contact Diagnoses Constipation Procedures NM Gastric Emptying with SB with Colonic Transit Time 48 hr Hung Botello M.D. [address] [place] [phone] [facility] Referral ID Status Reason Start Date Expiration Date V isits Requested Visits Authorized [id number] Authorized 09/27/2023 09/26/2024 8 8 PT ARTIST * Outpatient (Routine) - Closed Specialty Diagnoses / Procedures Referred By Contac t Referred To Contact Diagnoses Constipation Procedures DX Abdomen 1 View Hung Botello M.D. [address] [place] [phone] [facility] Referral ID Status Reason Start Date Expiration Date Visits Re quested Visits Authorized [id number] Closed 09/27/2023 09/26/2024 1 1 PT ARTIST * MRI/CAT/PET Scan (Routine) - Authorized Specialty Diagnoses / Procedures Referred By Contac t Referred To Contact Radiology Diagnoses Incontinence Fecal Other Female Genital Prolapse Procedures MR Proctogram Dynamic and Sphincter Eval without IV Contrast Hung Botello M.D. [address] [place] [phone] [facility] Referral ID Status Reason Start Date Expiration Date V isits Requested Visits Authorized [id number] Authorized 09/27/2023 09/26/2024 1 1 PT ARTIST * Outpatient (Routine) - Authorized Specialty Diagnoses / Procedures Referred By Contac t Referred To Contact Colon and Rectal Surgery Diagnoses Incontinence Fecal Hung Botello M.D. [address] [place] [phone] [facility] Referral ID Status Reason Start Date Expiration Date V isits Requested Visits Authorized [id number] Authorized 09/27/2023 03/28/2025 1 1 PT ARTIST Reason for Visit * Reason Onset Date Comments Pre-visit Testing Orders 09/27/2023 GI Motility 09/27/2023 Encounter Details Date Type Department Care Team (Latest Contact Info) Description 09/27/2023 Clinical Communication Division of Gastroenterology in [place], [place] [address] [place] [phone] Hung Botello M.D. [address] [place] [phone] Pre-visit Testing Orders; GI Motility Social History Tobacco Use Types Packs/Day Years [...] Date Recorded Employment status Working with temporary [employer] 01/31/2023 Housing Stability Answer Date Recorded What is your living situation today? I have a [facility] place to live 01/31/2023 Sex and [...] CDT Comprehensive Visit Division of Endocrinology in [place], [place] [address] [place] [phone] Iván Sky M.D. [address] [place] [phone] 01/22/2024 11:00 AM CDT Clinical Support Enema Prep Facility in [place], [place] [address] [place] [phone] Hung Botello M.D. [address] [place] [phone] 01/22/2024 12:30 PM CDT Appointment Division of Gastroenterology in [place], [place] [address] [place] [phone] Hung Botello M.D. [address] [place] [phone] 03/05/2024 7:15 AM CDT Appointment Department of Radiology, [place], [place] [address] [place] [phone] Hung Botello M.D. [address] [place] [phone] 03/06/2024 8:15 AM CDT Appointment Department of Radiology, [facility] in [place], [place] [address] [place] [phone] Hung Botello M.D. [address] [place] [phone] 03/07/2024 8:00 AM CDT Appointment Department of Radiology, [place], [place] [address] [place] [phone] Hung Botello M.D. [address] [place] [phone] Scheduled Orders Name Type Priority Associated Diagnoses Order Schedule MR Proctogram Dynamic and Sphincter Eval without IV Contrast Imaging RAD - Routine (most inpatients and all outpatients) Incontinence Fecal Other Female Genital Prolapse Expected: 12/12/2023, Expires: 09/28/2024 NM Gastric Emptying with SB with Colonic Transit Time 48 hr Imaging RAD - Routine (most inpatients and all outpatients) Constipation Expected: 12/16/2023 (Approximate), Expires: 09/28/2024 Anorectal Manometry GI Routine Incontinence Fecal Constipation Expected: 12/16/2023, Expires: 09/28/2024 Enema Prep Procedures Routine Incontinence Fecal Constipation Expected: 12/16/2023, Expires: 09/28/2024 NM Gastric Mucosa SPECT Imaging RAD - Routine (most inpatients and all outpatients) Bloating Abdominal Expected: 12/16/2023, Expires: 09/28/2024 Scheduled Referrals Name Type Priority Associated Diagnoses Order Schedule Colon and Rectal Surgery - Colonic dysmotility (incontinence / constipation) consult (clinic) Outpatient Referral Routine Incontinence Fecal Expected: 12/16/2023 (Approximate), Expires: 09/28/2024 documented as of this encounter Results * DX Abdomen 1 [...] burden in the colon.Degenerative changes. Bibasilar atelectasis. Hugn Botello M.D. [facility] NG PROCEDURES documented in this encounter Visit Diagnoses Diagnosis Incontinence Fecal- Primary Constipation Bloating Abdominal Other Female Genital Prolapse Constipation documented in this encounter Care Teams Customer Experience Leader Relationship Specialty Start Date End Date None Reported, Pcp PCP - General Family Medicine 02/06/23 documented as of this encounter
--- OUTSIDE RECORDS SUMMARY | 2023-12-24 14:54 | XMS_ITS | Encounter Summary ---
Author Organization [facility] Address [address] [place] [address] Care Team Providers Care Regional Airline Pilot Name Role Phone None Reported, Pcp Primary Care Provider Unavail able Reason for Referral * Outpatient (Routine) - Closed Specialty Diagnoses / Procedures Referred By Contac t Referred To Contact Diagnoses Scar Procedures PETERSON Excision 1-2 sites Pepe Lobo M.D. [address] [place] [phone] [facility] Referral ID Status Reason Start Date Expiration Date Visits Re quested Visits Authorized [id number] Closed 10/10/2023 10/09/2024 1 1 Reason for Visit * Outpatient (Routine) - Closed Specialty Diagnoses / Procedures Referred By Myriam wise Referred To Contact Dermatology Pepe Lobo M.D. [address] [place] [phone] [facility] Referral ID Status Reason Start Date Expiration Date Visits Re quested Visits Authorized [id number] Closed 01/24/2023 01/23/2026 1 1 Encounter Details Date Type Department Care Team (Late st Contact Info) Description 10/10/2023 3:15 PM CDT Office Visit Department of Dermatology in [place], [place] [address] [place] [phone] Pepe Lobo M.D. [address] [place] [phone] Scar (Primary Dx) Discharge Disposition: Home or Self Care Social [...] your living situation today? I have a min place to live 01/31/2023 Sex and Gender Information Value Date Recorded Sex Assigned at Female 10/06/2023 10:05 AM CDT Gender Identity Female 10/06/2023 10:05 AM CDT Sexual Orientation Straight 10/06/2023 10 :05 AM CDT documented as of this encounter Consult Notes * Amish Elizondo M.D. - 10/10/2023 3:15 PM CDT Correspondence to: Pepe Lobo M.D. SUBJECTIVE CHIEF COMPLAINT Wound concerns HISTORY OF THE PRESENT ILLNESS Naty Barahona is a pleasant 68 y.o. female with history of skin cancer, diabetes, renal dysfunction, frequent UTIs, who is seen today for post-operative wound concerns. 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 This was repaired with a large bilobed transposition flap. Previous course was complicated bymild tip necrosis of the primary lobe identified at followup visit, which was then further complicated by infection with abscess formation with foci under the primary lobe with a flap at the tertiarydefect closure site with spontaneous drainage. She was then evaluated in the emergency department and received a course of oral antibiotics for chopra- sensitive Staphylococcus aureus. Since then, she has had significant pain over the superior and inferior portions of the scar, requiring increased doses of Lyrica and tramadol as well as scheduled Tylenol and ibuprofen. This pain isprimarily over the hypertrophic scarring areas and interferes with her work significantly. She additionally has noticed numbness over the more central portion of the scar. Today she is hoping to hear options for treatment of these painful areas. She is less concerned about cosmetic outcome at this point. OBJECTIVE PHYSICAL EXAM General: Awake, alert and in no acute distress Skin: Focused skin examination of the right cheek reveals a healing bilobed transposition flap withhypertrophic scarring over the superior and inferior portions of the flap. No other obvious nodularity or evidence of skin cancer recurrence. ASSESSMENT / PLAN #1 Melanoma in Situ, right central malar cheek, status post Mohs micrographic surgery 01/24/2023 with large bilobed transposition flap complicated by necrosis and wound infection #2 Pain and dysesthesia secondary to #1 #3 Hypertrophic scar Mrs. Barahona presents today with continued significant pain primarily over the hypertrophic scarring areas of her healed large bilobed transposition flap. She was primarily concerned about the significant pain which has led to increased doses of her Lyrica, occasional tramadol, and scheduled Tylenol and ibuprofen. This pain has significantly interfered with her life and work. Today we discussed that we are pleased that her cancer is gone and that there is no sign of recurrence and that her eyelid margin was not affected by the necrosis of the distal primary lobe flap tip.We discussed that the numbness over the central portion of the scar is expected and that we hope that this will gradually get better with time. Given the significant pain over the hypertrophic scarring areas of her wound, we discussed multiple different treatment options for this including narrow excision, laser (PDL and fractionated CO2), and intralesional Kenalog injections. We also discussed that the hypertrophic scars may themselves be contributing to her pain. After discussion of the risksand benefits of each possible treatment with the patient, the patient elected to proceed today withintralesional Kenalog injections as below. She was instructed to send us a message in about 2-3 weeks to let us know how she is doing. At that time, we can decide on further intralesional Kenalog injections or proceeding with narrow excision of the hypertrophic scarring areas. Triamcinolone (Kenalog) Injection The risks and benefits of the injections were discussed, including risk of skin atrophy; 0.75 mL of20 mg/mL of triamcinolone was injected into hypertrophic scar primarily over the superior and inferior portion of her scar. The patient tolerated this well. Cool compresses and her current pain regimen can be taken for any associated discomfort. Laith Elizondo M.D. Associated attestation - Pepe Lobo M.D. - 10/11/2023 1:44 PM CDT I saw and evaluated the patient, participating in the alston elements of the service. I discussed the findings, assessment and plan with the resident/fellow and agree with resident/fellow???s findings and plan as documented in the resident/fellow's note. I was present for the entirety of the procedures. Functional and symptomatic scar revision is indicated given painful nature of hypertrophic scars, resulting from flap reconstruction complicated by primary lobe necrosis and subsequent purulent cellulitis infection. We discussed options today ranging from surgical resection/scar revision and primary closure, to intralesional 5 fluorouracil injections +/- laser treatments including fractionated ablative CO2 laser for contour/texture, and pulsed dye laser for color. After review the risks benefits and alternatives, the patient opted to move forward with intralesional injection which was performed today. We will tentatively schedule her in 2 months for surgical revision, to include narrow elliptical excisions of hypertrophic/spread scars and repeat primary closure. Careful attention to lowereyelid position (given tenuous status) will need to be taken. I will have a low threshold for periosteal tacking suture to support. After surgical revision, I would strongly recommend consideration of laser scar revision. Today she states she has not currently interested in consideration of laser; we will readdress at a later date. Pepe Lobo M.D. documented in this encounter Plan of Treatment Upcoming Encounters Date Type Department Care Team (Latest Contact Info) Description 01/22/2024 8:30 AM CDT Comprehensive Visit Division of Endocrinology in [place], [place] [address] [place] [phone] Iván Sky M.D. [address] [place] [phone] 01/22/2024 11:00 AM CDT Clinical Support Enema Prep Facility in [place], [place] [address] [place] [phone] Hung Botello M.D. [address] [place] [phone] 01/22/2024 12:30 PM CDT Appointment Division of Gastroenterology in [place], [place] [address] [place] [address] Hung Botello M.D. [address] [place] [phone] 03/05/2024 7:15 AM CDT Appointment Department of Radiology, [facility], in [place], [place] [address] [place] [phone] Hung Botello M.D. [address] [place] [phone] 03/06/2024 8:15 AM CDT Appointment Department of Radiology, [facility], in [place], [place] [address] [place] [phone] Hung Botello M.D. [address] [place] [phone] 03/07/2024 8:00 AM CDT Appointment Department of Radiology, [facility], in [place], [place] [address] [place] [address] Hung Botello M.D. [address] [place] [phone] documented as of this encounter Results * PETERSON Excision 1-2 sites (12/05/2023 2:00 PM CDT) Narrative Pepe Lobo M.D. - 12/05/2023 2:00 PM CDT Pepe Lobo M.D. ? 12/06/2023 10:42 AM PREOP INDICATION: ??Scar revision. Date of Surgery: 12/05/2023 Surgeon: Pepe Lobo M.D. Supervisor Sunglasses: Augusta Peña M.D. Location: [facility] ?? Bldg:GO ?? Floor:16 ?? Room:[facility] Visit Type: Outpatient PreOp Diagnosis: ??Hypertrophic [...] this encounter Visit Diagnoses Diagnosis Scar- Primary Scar- Primary Pain Cutaneous Cicatricial Ectropion Right Lower Eyelid documented in this encounter Administered Medications Inactive Administered Medications - up to 3 most recent administrations Medication Order MAR Action Action Date Dose Rate Site triamcinolone acetonide injection 15 mg (KENALOG-40) 15 mg, intralesional, Once, On Yara 10/10/23 at 1630, For 1 dose, Dilute with 1cc saline for 20 mg/mL concentration Given 10/10/2023 4:13 PM CDT 15 mg documented in this encounter Care Teams Regional Airline Pilot Relationship Specialty Start Date End Date None Reported, Pcp PCP - General Family Medicine 02/06/23 documented as of this encounter
== END 2023-12-24 10:28 | disposition home or self-care (01) ==
LOC: NFLDREF 14:51
PROVIDERS: PCP Family Medicine; Referring Provider Family Medicine; Visit Provider Family Medicine
DX: E11.40 Type 2 diabetes mellitus with diabetic neuropathy, unspecified (principal); Z78.0 Asymptomatic menopausal state; Z79.899 Other long term (current) drug therapy; K21.9 Gastro-esophageal reflux disease without esophagitis; E03.9 Hypothyroidism, unspecified; E78.5 Hyperlipidemia, unspecified; F32.A Depression, unspecified; F41.9 Anxiety disorder, unspecified; N95.2 Postmenopausal atrophic vaginitis; N39.0 Urinary tract infection, site not specified; R60.9 Edema, unspecified; I34.1 Nonrheumatic mitral (valve) prolapse; M85.80 Other specified disorders of bone density and structure, unspecified site; M15.9 Polyosteoarthritis, unspecified; C43.30 Malignant melanoma of unspecified part of face; D64.9 Anemia, unspecified; Z79.1 Long term (current) use of non-steroidal anti-inflammatories (NSAID)
CPT/HCPCS: 80053; 80061; 82043; 82306; 82570; 82607; 82728; 84439; 84443

== ENCOUNTER 2024-01-29 07:49 | Outpatient (CLI) | payer OTHER, SELFPAY ==
--- OUTSIDE RECORDS SUMMARY | 2024-01-29 07:53 | XMS_ITS | Clinical Summary ---
Author Organization [facility] Address [address] [place] [address] Care Team Providers Care Glass Technician Name Role Phone No Ref-Primary, Physician Primary [...] Overview: Added automatically from request for surgery [id number] Family History Medical History Relation Comments Hypertension [...] of Treatment Not on file Care Teams Glass Technician Relationship Specialty Start Date End Date No Ref-Primary, Physician PCP - General 12/09/18
--- OUTSIDE RECORDS SUMMARY | 2024-01-29 07:53 | XMS_ITS | Referral Summary ---
Author Organization [facility] Address [address] [place] [address] Care Team Providers Care Real Estate Transaction Manager Name Role Phone None Reported, Pcp Primary Care Provider Unavail able Source Comments Patient records contain information from all sites at [facility]. For routine questions regarding patient records, call [phone] during business hours, M-F 8:00 AM - 5:00 PM Central Time. Record requests for emergency care only can be directed to [phone] at any time.[facility] Encounters Date Type Department Care Team Description 01/23/2024 Documentation Division of Gastroenterology in [place], [place] [address] [place] [phone] Iván Sky M.D. 01/22/2024 12:54 PM CDT - 01/22/2024 11:59 PM CDT Hospital Encounter Department of Laboratory Medicine and Pathology, [facility], in [place], [place] [address] [place] [phone] Inés Gipson M.D. Hypothyroidism Primary Discharge Disposition: Home or Self Care 01/22/2024 Orders Only Division of Endocrinology in [place], [place] [address] [place] [phone] Inés Gipson M.D. Hypothyroidism Primary (Primary Dx) 01/22/2024 11:00 AM CDT Clinical Support En[facility] Prep Facility in [place], [place] [address] [place] [phone] Hung Botello M.D. Peterson, Emily L, R.N. Incontinence Fecal; Constipation 01/22/2024 11:35 AM CDT - 01/22/2024 12:53 PM CDT Hospital Encounter Division of Gastroenterology in [place], [place] [address] [place] [phone] Hung Botello M.D. Incontinence Fecal; Constipation Discharge Disposition: Home or Self Care 01/22/2024 8:30 AM CDT Comprehensive Visit Division of Endocrinology in [address] [phone] Iván Sky M.D. Ayari, Lena, M.D. Constipation; Diabetes Mellitus Type 2 With Diabetic Neuropathy (HCC) 12/19/2023 8:39 AM CDT - 12/19/2023 11:59 PM CDT Hospital Encounter Department of Laboratory Medicine in [address] [phone] Iván Sky M.D. Constipation; Diabetes Mellitus Type 2 With Diabetic Neuropathy (HCC) Discharge Disposition: Home or Self Care 12/12/2023 Ancillary Procedure Department of Dermatology 12/12/2023 3:00 PM CDT Nurse Only Department of Dermatology in [address] [phone] Augusta Peña M.D. Anderson, Devon S, RAlokN. Discharge Disposition: Home or Self Care 12/12/2023 11:57 AM CDT - 12/12/2023 11:59 PM CDT Hospital Encounter Department of Radiology, [facility], in [address] [phone] Hung Botello M.D. Constipation Discharge Disposition: Home or Self Care 12/12/2023 1:10 PM CDT Comprehensive Visit Division of Gastroenterology in [address] [phone] Hung Botello M.D. Mehanna Al Snih, Gad, M.D. Diabetes Mellitus Type 2 With Diabetic Neuropathy (HCC) (Primary Dx); Constipation; Pain Abdominal Chronic 12/11/2023 7:00 AM CDT Clinical Communication Virtual Review in [address] [phone] Pre-visit Intake 12/05/2023 Ancillary Procedure Department of Dermatology 12/05/2023 2:00 PM CDT Procedure visit Department of Dermatology in [place], [place] [address] [place] [address] Pepe Lobo M.D. Scar (Primary Dx); Pain Cutaneous; Cicatricial Ectropion Right Lower Eyelid Discharge Disposition: Home or Self Care from Last 3 Months Allergies Active Allergy [...] Dispensed Refills Start Date End Date Status cranberry 400 mg capsule Take 400 mg [...] Take 1 tablet by mouth daily. Active estradioL (ESTRACE) 0.1 mg/g (0.01%) vaginal cream Insert 2 g into the vagina 3 (three) times a week. 12/11/2018 Active hyoscyamine (LEVBID) 0.375 mg 12 hr tablet Take 0.375 mg by mouth every 12 (twelve) hours. 06/26/2020 Active levothyroxine (SYNTHROID, LEVOTHROID) 75 mcg tablet Take 75 mcg by mouth every morning before breakfast. 11/30/2019 Active multivitamin tablet Take 1 tablet by mouth daily. 10/11/2017 Active rosuvastatin (CRESTOR) 20 mg tablet Take 20 mg by mouth at bedtime. 11/11/2019 Active sennosides-docu sate sodium (SENOKOT-S) 8.6-50 mg per tablet Take 1 tablet by mouth 2 (two) times a day. Active VITAMIN B COMPLEX ORAL Take 1 tablet by mouth daily. 10/11/2017 Active APPLE CIDER VINEGAR ORAL Take 2 tablets by mouth daily. Active acetaminophen (TYLENOL) 500 mg tablet Take 1,000 mg by mouth 3 (three) times a day. Active ibuprofen (ADVIL,MOTRIN) 200 mg capsule Take 800 mg by mouth 2 (two) times a day. Active blood sugar diagnostic strips (WeblioTouch Ultra Test Strips) 1 test once as needed. 2-4 times daily 09/16/2018 Active triamcinolone (KENALOG) 0.1 % cream Apply 1 Application topically 2 (two) times a day for 7 days. Apply to neck. 240 g 3 12/12/2023 Active omeprazole (PriLOSEC) [address] capsule Take 40 mg by mouth daily. Active dulaglutide (Trulicity) 1.5 mg/0.5 mL pen injector injection Inject 1.5 mg under the skin every 7 (seven) days. Active pioglitazone (Actos) 30 mg tablet Take 30 mg by mouth daily. Active pregabalin (Lyrica) 50 mg capsule Take 50 mg by mouth 2 (two) times a day. Active ascorbic acid, vitamin C, powder Take 1,000 mg by mouth daily. 4 Discontinued celecoxib (CeleBREX) 200 mg capsule Take 200 mg by mouth 2 (two) times a day. 4 Discontinued dulaglutide (TRULICITY) 0.75 mg/0.5 mL injection Inject 1.5 mg under the skin every 7 (seven) days. 05/23/2020 4 Discontinued lansoprazole (PREVACID) [address] capsule Take 30 mg by mouth daily. 05/23/2020 4 Discontinued pioglitazone (ACTOS) 45 mg tablet Take 30 mg by mouth daily. 05/23/2020 4 Discontinued(Alt ernate therapy) pregabalin (LYRICA) 75 mg capsule Take 300 mg by mouth daily. 05/22/2020 4 Discontinued(Alt ernate therapy) traMADoL (ULTRAM) 50 mg tabletIndicatio ns:Acute Pain Take 1 tablet (50 mg total) by mouth every 6 (six) hours as needed for pain Indications: Acute Pain. 8 tablet 01/24/2023 4 Discontinued dulaglutide (Trulicity) 1.5 mg/0.5 mL pen injector injection Inject 1.5 mg under the skin every 7 (seven) days. 4 Discontinued omeprazole (PriLOSEC) [address] capsule Take 40 mg by mouth. 4 Discontinued Active Problems Problem Noted Date Diagnosed Date [...] Overview: Added automatically from request for surgery [id number] Sinusitis Chronic 05/05/2018 Tendinitis Bicipital Left 10/22/2017 [...] Date Recorded Employment status Working with temporary [employer] tions 01/31/2023 Housing Stability Answer Date Recorded What is your living situation today? I have a [facility] place to live 01/31/2023 Sex and Gender Information Value Date Recorded Sex Assigned at Female 10/06/2023 10:05 AM CDT Gender Identity Female 10/06/2023 10:05 AM CDT Sexual Orientation Straight 10/06/2023 10 :05 AM CDT Last Filed Vital Signs Vital Sign Reading Time Taken Comments Blood Pressure 114/76 01/22/2024 8:35 AM CDT Pulse 70 01/22/2024 8:35 AM CDT Temperature 36.9 ??C (98.4 ??F) 02/06/2023 4:09 PM CD T Respiratory Rate 16 02/06/2023 4:09 PM CDT Oxygen Saturation 99% 02/06/2023 9:00 PM CDT Inhaled Oxygen Concentration - - Weight 81.6 kg (179 lb 14.3 oz) 01/22/2024 8:35 AM CDT Height 163.1 cm (5' 4.21) 01/22/2024 8:35 AM CD T Body Mass Index 30.67 01/22/2024 8:35 AM CDT Plan of Treatment Upcoming Encounters Date Type Department Care Team (Late st Contact Info) Description 02/24/2024 3:00 PM CDT Office Visit Department of Dermatology in [address] [phone] Peep Lobo M.D. [address] [place] [phone] 03/05/2024 7:15 AM CDT Appointment Department of Radiology, [place], [place] [address] [place] [phone] Hung Botello M.D. [address] [place] [phone] 03/06/2024 8:15 AM CDT Appointment Department of Radiology, [facility] in [place], [place] [address] [place] [phone] Hung Botello M.D. [address] [place] [phone] 03/07/2024 8:00 AM CDT Appointment Department of Radiology, [place], [place] [address] [place] [phone] Hung Botello M.D. [address] [place] [phone] Procedures Procedure Name Priority Date/Time Associated Diagnosis Comments ANORECTAL MANOMETRY Routine 01/22/2024 5 :13 PM CDT Incontinence Fecal Constipation THYROID-STIMULATING HORMONE-SENSITIVE (S-TSH) Routine 01/22/2024 1:05 PM CDT Hypothyroidism Primary GLUCOSE, FASTING, S/P Routine 12/19/2023 8:48 AM [...] IMAGE EXAM Routine 12/05/2023 12:00 AM CDT COMPREHENSIVE METABOLIC PANEL, S/P Routine 02/18/2023 12:37 PM CDT Wound Infection Initial (HCC) EXTI LIPID PANEL, S Routine 06/23/2019 9 :20 AM FIRE CONTROL ASSISTANT from Last 3 Months or Most Recently Relevant to Health Maintenance Results * Anorectal Manometry (01/22/2024 5:13 PM CDT) Hung Botello M.D. GI PROCEDURE ORDERAB LES MMODAL NA * S-TSH (Thyroid-Stimulating Hormone - Sensitive) (01/22/2024 1:05 PM CDT) TSH, Sensitive 1.1 0.3 - 4.2 mIU/L 01/22/2024 2:23 PM CDT DTL Blood (Blood, Venous) 01/22/2024 1:05 PM CDT 01/22/2024 1:50 PM CDT Inés Gipson M.D. LAB BLOOD ADD-ON Performing Organization Address City/[facility]/ZIP Co de Phone Number [facility] [address] [place] [address], [facility] [address] [place] [address] * (ABNORMAL) Hemoglobin A1c (12/19/2023 8:48 AM [...] LAB BLOOD ADD-O N Performing Organization Address City/[facility]/ZIP Co de Phone Number [facility] [address] [place] [phone], [place] OWAT [facility] [place] [address] [place] [phone] * Glucose, Fasting (12/19/2023 8:48 AM CDT) Glucose, P 88 70 - 100 mg/dL 12/19/2023 1:12 PM CDT OWAT Last Intake 11 hr 12/19/2023 12:50 PM CDT OWAT Blood (Blood, Venous) 12/19/2023 8:48 AM CDT 12/19/2023 12:50 PM CDT Iván Saleh M.D. LAB BLOOD NON A DD-ON Performing Organization Address [facility]/ZIP Co de Phone Number [facility] [address] [place] [address], [facility] OWAT [facility] [place] [address] [place] [address] * (ABNORMAL) Creatinine with Estimated GFR (12/19/2023 8:48 AM CDT) Creatinine 1.13(H) 0.59 - 1.04 mg/dL 12/19/2023 1:31 PM CDT OWAT Estimated GFR (eGFR) 53(L) >=60 mL/min/BSA 12/19/2023 1:31 PM CDT OWAT Comment: Estimated GFR calculated using the 2020 CKD_EPI creatinine equation. Blood (Blood, Venous) 12/19/2023 8:48 AM CDT 12/19/2023 12:57 PM CDT Iván Saleh M.D. LAB BLOOD ADD-O N Performing Organization Address [facility]/ZIP Co de Phone Number [facility] [address] [place] [address], [place] OWAT [facility] [place] [address] [place] [address] * DX Abdomen 1 View (12/12/2023 12:17 [...] 12:00 AM CDT) Only the most recent of2 resultswithin the time period is included. Narrative [...] of Surgery: 12/05/2023 Surgeon: Pepe Lobo M.D. Piledriver Carpenter: Augusta Peña M.D. Location: [place] ?? [facility]:[place] ?? Floor:16 ?? Room:[facility] Visit Type: Outpatient PreOp Diagnosis: ??Hypertrophic [...] times 10 days Pepe Lobo M.D. DERM KATLIN PATTERSON * (ABNORMAL) Comprehensive Metabolic Panel (02/18/2023 12:37 PM CDT) [facility] Potassium, S 4.6 3.6 - 5.2 mmol/L [...] CDT Pepe Lobo M.D. LAB BLOOD ADD-ON [facility] [address] [place] [address], [facility] DTL [facility] [address] [place] [address] from Last 3 Months or Most Recently Relevant to Health Maintenance Care Teams Real Estate Transaction Manager Relationship Specialty Start Date End Date None Reported, Pcp PCP - General Family Medicine 02/06/23
--- OUTSIDE RECORDS SUMMARY | 2024-01-29 07:53 | XMS_ITS | Encounter Summary ---
Author Organization [facility] Address [address] [place] [address] Care Team Providers Care Power Crane Operator Name Role Phone None Reported, Pcp Primary Care Provider Unavail able Reason for Visit * Reason Comments Constipation * Outpatient (Routine) - Closed Specialty Diagnoses / Procedures Referred By Myriam wise Referred To Contact Diagnoses Incontinence Fecal Constipation Procedures Enema Prep Hung Botello M.D. [address] [place] [phone] [facility] Referral ID Status Reason Start Date Expiration Date Visits Re quested Visits Authorized [id number] Closed 09/27/2023 09/26/2024 1 1 Encounter Details Date Type Department Care Team (Latest Contact Info) Description 01/22/2024 11:00 AM CDT Clinical Support Enema Prep Facility in [place], [place] [address] [place] [phone] Hung Botello M.D. [address] [place] [phone] Glendy Wadsworth R.N. Incontinence Fecal; Constipation Social History Tobacco Use Types Packs/Day Years [...] your living situation today? I have a [facility] place to live 01/31/2023 Sex and Gender [...] CDT Office Visit Department of Dermatology in [place], [place] [address] [place] [phone] Pepe Lobo M.D. [address] [place] [phone] 03/05/2024 7:15 AM CDT Appointment Department of Radiology, [facility] in [place], [place] [address] [place] [phone] Hung Botello M.D. [address] [place] [phone] 03/06/2024 8:15 AM CDT Appointment Department of Radiology, [facility], in [place], [place] [address] [place] [phone] Hung Botello M.D. [address] [place] [phone] 03/07/2024 8:00 AM CDT Appointment Department of Radiology, [place], [place] [address] [place] [phone] Hung Botello M.D. [address] [place] [phone] documented as of this encounter Visit Diagnoses Diagnosis Incontinence Fecal Constipation documented in this encounter Care Teams Power Crane Operator Relationship Specialty Start Date End Date None Reported, Pcp PCP - General Family Medicine 02/06/23 documented as of this encounter
--- OUTSIDE RECORDS SUMMARY | 2024-01-29 07:53 | XMS_ITS | Encounter Summary ---
Author Organization [facility] Address [address] [place] [address] Care Team Providers Care Fork Lift Technician Name Role Phone None Reported, Pcp Primary Care Provider Unavail able Encounter Details Date Type Department Care Team (Latest Contact Info) Description 12/19/2023 8:39 AM CDT - 12/19/2023 11:59 PM CDT Hospital Encounter Department of Laboratory Medicine in [address] [phone] Iván Sky M.D. [address] [place] [phone] Constipation; Diabetes Mellitus Type 2 With Diabetic [...] your living situation today? I have a [facility] place to live 01/31/2023 Sex and [...] ORAL Take 2 tablets by mouth daily. blood sugar diagnostic strips ([employer] Ultra Test Strips) 1 test once as [...] biphasic Take 1 tablet by mouth daily. estradioL (ESTRACE) 0.1 mg/g (0.01%) vaginal cream Insert 2 g into the vagina 3 (three) times a week. 12/11/2018 hyoscyamine (LEVBID) 0.375 mg 12 hr tablet Take 0.375 mg by mouth every 12 (twelve) hours. 06/26/2020 ibuprofen (ADVIL,MOTRIN) 200 mg capsule Take 800 mg by mouth 2 (two) times a day. levothyroxine (SYNTHROID, LEVOTHROID) 75 mcg tablet Take 75 mcg by mouth every morning before breakfast. 11/30/2019 multivitamin tablet Take 1 tablet by mouth daily. 10/11/2017 rosuvastatin (CRESTOR) 20 mg tablet Take 20 mg by mouth at bedtime. 11/11/2019 sennosides-docusate sodium (SENOKOT-S) 8.6-50 mg per tablet Take 1 tablet by mouth 2 (two) times a day. triamcinolone (KENALOG) 0.1 % cream Apply 1 Application topically 2 (two) times a day for 7 days. Apply to neck. 240 g 3 12/12/2023 VITAMIN B COMPLEX ORAL Take 1 tablet by mouth daily. 10/11/2017 ascorbic acid, vitamin C, powder Take 1,000 mg by mouth daily. 01/22/2024 celecoxib (CeleBREX) 200 mg capsule Take 200 mg by mouth 2 (two) times a day. 01/22/2024 dulaglutide (TRULICITY) 0.75 mg/0.5 mL injection Inject 1.5 mg under the skin every 7 (seven) days. 05/23/2020 01/22/2024 lansoprazole (PREVACID) [address] capsule Take 30 mg by mouth daily. 05/23/2020 01/22/2024 pioglitazone (ACTOS) 45 mg tablet Take 30 mg by mouth daily. 05/23/2020 01/22/2024 pregabalin (LYRICA) 75 mg capsule Take 300 mg by mouth daily. 05/22/2020 01/22/2024 traMADoL (ULTRAM) 50 mg tabletIndications:Acut e Pain Take 1 tablet (50 mg total) by mouth every 6 (six) hours as needed for pain Indications: Acute Pain. 8 tablet 01/24/2023 01/22/2024 documented as of this encounter Plan of Treatment Upcoming Encounters Date Type Department Care Team (Late st Contact Info) Description 02/24/2024 3:00 PM CDT Office Visit Department of Dermatology in [address] [phone] Pepe Lobo M.D. [address] [place] [phone] 03/05/2024 7:15 AM CDT Appointment Department of Radiology, [place], [place] [address] [place] [phone] Hung Botello M.D. [address] [place] [phone] 03/06/2024 8:15 AM CDT Appointment Department of Radiology, [place], [place] [address] [place] [phone] Hung Botello M.D. [address] [place] [phone] 03/07/2024 8:00 AM CDT Appointment Department of Radiology, [facility], [place], [place] [address] [place] [phone] Hung Botello M.D. [address] [place] [phone] documented as of this encounter Procedures Procedure [...] AM CDT 12/19/2023 12:50 PM CDT Iván Avi Saleh M.D. LAB BLOOD NON A DD-ON [facility] [address] [place] [phone], [facility] in [place] [address] [place] [phone] * (ABNORMAL) Creatinine with Estimated GFR (12/19/2023 8:48 AM CDT) Creatinine 1.13(H) 0.59 - 1.04 mg/dL 12/19/2023 1:31 PM CDT [facility] Estimated GFR (eGFR) 53(L) >=60 mL/min/BSA 12/19/2023 1:31 PM CDT [facility] Comment: Estimated GFR calculated using the 2020 CKD_EPI creatinine equation. Blood (Blood, Venous) 12/19/2023 8:48 AM CDT 12/19/2023 12:57 PM CDT Iván Saleh M.D. LAB BLOOD ADD-O N Performing Organization Address City/[facility]/ZIP Co de Phone Number [facility] [address] [place] [address], [facility] in [place] [address] [place] [address] * (ABNORMAL) Hemoglobin A1c (12/19/2023 8:48 AM CDT) Hemoglobin A1c, B 5.8(H) 4.2 - 5.6 % 12/19/2023 1:37 PM CDT [facility] Comment: Hemoglobin A1c values of 5.7-6.4 percent indicate an increased risk for developing diabetes mellitus. In diabetic patients, HbA1c goals should be discussed with healthcare provider. Blood (Blood, Venous) 12/19/2023 8:48 AM CDT 12/19/2023 12:57 PM CDT Iván Saleh M.D. 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
--- OUTSIDE RECORDS SUMMARY | 2024-01-29 07:53 | XMS_ITS | Encounter Summary ---
Author Organization [facility] Address [address] [place] [phone] Care Team Providers Care Windows Server Architect Name Role Phone None Reported, Pcp Primary Care Provider Unavail able Reason for Visit * Outpatient (Routine) - Closed Specialty Diagnoses / Procedures Referred By Myriam wise Referred To Contact Endocrinology Diagnoses Constipation Diabetes Mellitus Type 2 With Diabetic Neuropathy (HCC) Iván Sky M.D. [address] [place] [phone] [facility] Referral ID Status Reason Start Date Expiration Date Visits Re quested Visits Authorized [id number] Closed 12/12/2023 06/12/2025 1 1 Encounter Details Date Type Department Care Team (Latest Contact Info) Description 01/22/2024 8:30 AM CDT Comprehensive Visit Division of Endocrinology in [place], [place] [address] [place] [phone] Iván Sky M.D. [address] [place] [phone] Candi Mon M.D. [address] [place] [phone] Constipation; Diabetes Mellitus Type 2 With Diabetic Neuropathy (HCC) Social History Tobacco Use Types Packs/Day Years [...] living situation today? I have a [facility] place to live 01/31/2023 Sex and Gender Information Value Date Recorded Sex Assigned at Female 10/06/2023 10:05 AM CDT Gender Identity Female 10/06/2023 10:05 AM CDT Sexual Orientation Straight 10/06/2023 10 :05 AM CDT documented as of this encounter Last Filed Vital Signs Vital Sign Reading Time Taken Comments Blood Pressure 114/76 01/22/2024 8:35 AM CDT Pulse 70 01/22/2024 8:35 AM CDT Temperature - - Respiratory Rate - - Oxygen Saturation - - Inhaled Oxygen Concentration - - Weight 81.6 kg (179 lb 14.3 oz) 01/22/2024 8:35 AM CDT Height 163.1 cm (5' 4.21) 01/22/2024 8:35 AM CD T Body Mass Index 30.67 01/22/2024 8:35 AM CDT documented in this encounter Consult Notes * Inés Gipson M.D. - 01/22/2024 8:30 AM CDT I saw and evaluated the patient, participating in the alston portions of the service. I reviewed the resident/fellow???s note. I agree with the resident/fellow???s findings and plan. 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 She has had type 2 diabetes since 1998. She has been on various medications in the past including metformin, Byetta, glipizide, Jardiance, and basal insulin. Most recently, she has been on Trulicity 1.5 mg once weekly for the last 7 years in addition to pioglitazone 30 mg daily. Sheis checking her blood sugars at home infrequently. A hemoglobin A1c is 5.8%. #1 Type 2 diabetes mellitus, well controlled with hemoglobin A1c 5.8%, with complications Mrs. Barahona can stop the Trulicity given the epigastric fullness, early satiety and nausea. Her hemoglobin A1c is easily within goal, and I suspect she will not need to add a second agent. We recommend checking her blood sugars 3 to 4 times a week fasting to ensure levels are between 100-180 mg/dL. She should have a hemoglobin A1c rechecked in 3 months with her local provider. A hemoglobin A9muyqtrp 7% is sufficient to reduce long-term microvascular complications. * Candi Mon M.D. - 01/22/2024 8:30 AM CDT SUBJECTIVE CHIEF COMPLAINT / REASON FOR VISIT Naty Barahona is a 68 y.o. female presenting in referral from Rosa Storey* for consultation in the evaluation of type 2 diabetes management. Past medical history is notable for hypothyroidism, HLD, GERD, and prior TIAs. HISTORY OF PRESENT ILLNESS Patient states that she was referred by her deputy united states marshal due to concern that Trulicity may becontributing to her nausea and abdominal pain by causing gastroparesis. She will be undergoing a gastric emptying evaluation and is interested in exploring alternatives to Trulicity. She was diagnosed with type 2 diabetes mellitus in 1998. Since then, she has trialed several different diabetes medications including metformin, sitagliptin, exenatide, glipizide, and empagliflozin, all of which resulted in GI upset. She has also been on basal and short-acting insulin in the past. She is currently on Trulicity 1.5 mg weekly (started 7 years ago) and pioglitazone 30 mg which she has been tolerating well. Her most recent hemoglobin A1c on 12/24/2023 was 5.8%. She does not regularly check her blood glucose at home. She notes that about 25 years ago, she began experiencing left lower quadrant abdominal pain that has gradually been worsening. It now radiates to the epigastric region. She also endorses nausea and loss of appetite. These symptoms prompted her to schedule a GI evaluation, which she is currently undergoing. REVIEW OF SYSTEMS All other systems reviewed and are negative. OBJECTIVE PHYSICAL EXAM General Appearance: Alert, no distress. Eye: Conjunctivae normal. Pupils equal and round. Heart: Regular rate and rhythm without murmur. Lungs: Clear to auscultation with normal respiratory effort. Abdomen: Soft, non-distended. Tender to palpation in left lower quadrant. ASSESSMENT / PLAN #1 Diabetes Mellitus Type 2 With Diabetic Neuropathy (HCC) #2 Chronic abdominal pain #3 Chronic constipation Mrs. Barahona is a pleasant 68-year-old female with a history of type 2 diabetes and hypothyroidism who presents to discuss alternatives to Trulicity as she is currently undergoing a GI evaluation for gastroparesis with symptoms including abdominal pain, nausea, and loss of appetite. Her A1c is within goal range <7 (most recent from 1 month ago 5.8%) and she is currently on Trulicity 1.5 mg weekly and pioglitazone 30 mg daily. Given her optimal control, we recommended discontinuing Trulicity and continuing pioglitazone and rechecking an A1c in 3 months to ensure that she is still within goal which is below 7%. We also recommended checking a fasting blood glucose 4 times a week with a goal of 100-180. She is agreeable to this. We also discussed general recommendations for type 2 diabetes including yearly eye exams and daily foot exams, which she has been doing. Candi Mon M.D. Internal Medicine PGY-1 documented in this encounter Plan of Treatment Upcoming Encounters Date Type Department Care Team (Late st Contact Info) Description 02/24/2024 3:00 PM CDT Office Visit Department of Dermatology in [place], [place] [address] [place] [phone] Pepe Lobo M.D. [address] [place] [phone] 03/05/2024 7:15 AM CDT Appointment Department of Radiology, [place], [place] [address] [place] [phone] Hung Botello M.D. [address] [place] [phone] 03/06/2024 8:15 AM CDT Appointment Department of Radiology, [facility], in [place], [place] [address] [place] [phone] Hung Botello M.D. [address] [place] [phone] 03/07/2024 8:00 AM CDT Appointment Department of Radiology, [facility] [place], [place] [address] [place] [phone] Hung Botello M.D. [address] [place] [phone] documented as of this encounter Visit Diagnoses Diagnosis Constipation Diabetes Mellitus Type 2 With Diabetic Neuropathy (HCC) documented in this encounter Care Teams Windows Server Architect Relationship Specialty Start Date End Date None Reported, Pcp PCP - General Family Medicine 02/06/23 documented as of this encounter
--- OUTSIDE RECORDS SUMMARY | 2024-01-29 07:53 | XMS_ITS | Encounter Summary ---
Author Organization [facility] Address [address] [place] [address] Care Team Providers Care Day Habilitation Specialist Name Role Phone None Reported, Pcp Primary Care Provider Unavail able Encounter Details Date Type Department Care Team (Latest Contact Info) Description 01/22/2024 12:54 PM CDT - 01/22/2024 11:59 PM CDT Hospital Encounter Department of Laboratory Medicine and Pathology, [facility] in [place], [place] [address] [place] [phone] Inés Gipson M.D. [address] [place] [phone] Hypothyroidism Primary Discharge Disposition: Home or Self Care Social [...] your living situation today? I have a [facility] place to live 01/31/2023 Sex and [...] by mouth daily. blood sugar diagnostic strips ([employer] Ultra Test Strips) 1 test once as [...] Take 1 tablet by mouth daily. dulaglutide (Trulicity) 1.5 mg/0.5 mL pen injector injection Inject 1.5 mg under the skin every 7 (seven) days. estradioL (ESTRACE) 0.1 mg/g (0.01%) vaginal cream [...] Take 1 tablet by mouth daily. 10/11/2017 omeprazole (PriLOSEC) [address] capsule Take 40 mg by mouth daily. pioglitazone (Actos) 30 mg tablet Take 30 mg by mouth daily. pregabalin (Lyrica) 50 mg capsule Take 50 mg by mouth 2 (two) times a day. rosuvastatin (CRESTOR) 20 mg tablet Take 20 mg by mouth at bedtime. 11/11/2019 sennosides-docusate sodium (SENOKOT-S) 8.6-50 mg per tablet Take 1 tablet by mouth 2 (two) times a day. VITAMIN B COMPLEX ORAL Take 1 tablet by mouth daily. 10/11/2017 documented as of this encounter Plan of Treatment Upcoming Encounters Date Type Department Care Team (Late st Contact Info) Description 02/24/2024 3:00 PM CDT Office Visit Department of Dermatology in [place], [place] 200 [place] [phone] Pepe Lobo M.D. [address] [place] [phone] 03/05/2024 7:15 AM CDT Appointment Department of Radiology, [facility], in [place], [place] [address] [place] [phone] Hung Botello M.D. [address] [place] [phone] 03/06/2024 8:15 AM CDT Appointment Department of Radiology, [facility] in [place], [place] [address] [place] [address] Hung Botello M.D. [address] [place] [phone] 03/07/2024 8:00 AM CDT Appointment Department of Radiology, [facility], in [place], [place] [address] [place] [phone] Hung Botello M.D. [address] [place] [phone] documented as of this encounter Procedures Procedure Name Priority Date/Time Associated Diagnosis Comments THYROID-STIMULATING HORMONE-SENSITIVE (S-TSH) Routine 01/22/2024 1:05 PM CDT Hypothyroidism Primary documented in this encounter Results * S-TSH (Thyroid-Stimulating Hormone - Sensitive) (01/22/2024 1:05 PM CDT) TSH, Sensitive 1.1 0.3 - 4.2 mIU/L 01/22/2024 2:23 PM CDT DTL Blood (Blood, Venous) 01/22/2024 1:05 PM CDT 01/22/2024 1:50 PM CDT Inés Gipson M.D. LAB BLOOD ADD-ON [facility] [address] [place] [address], [place] DTL [facility] [address] [place] [address] documented in this encounter Visit Diagnoses Diagnosis Hypothyroidism Primary documented in this encounter Care Teams Day Habilitation Specialist Relationship Specialty Start Date End Date None Reported, Pcp PCP - General Family Medicine 02/06/23 documented as of this encounter
--- OUTSIDE RECORDS SUMMARY | 2024-01-29 07:53 | XMS_ITS | Encounter Summary ---
Author Organization [facility] Address [address] [place] [address] Care Team Providers Care Cash Management Specialist Name Role Phone None Reported, Pcp Primary Care Provider Unavail able Encounter Details Date Type Department Care Team ([facility] st Contact Info) Description 01/23/2024 Documentation Division of Gastroenterology in [place], [place] [address] [place] [phone] Iván Sky M.D. [address] [place] [phone] Social History Tobacco Use Types Packs/Day Years [...] your living situation today? I have a [facility] place to live 01/31/2023 Sex and Gender Information Value Date Recorded Sex Assigned at Female 10/06/2023 10:05 AM CDT Gender Identity Female 10/06/2023 10:05 AM CDT Sexual Orientation Straight 10/06/2023 10 :05 AM CDT documented as of this encounter Progress Notes * Iván Sky M.D. - 01/23/2024 12:48 PM CDT SUBJECTIVE Ms. Naty Barahona is a very pleasant 68-year-old female patient evaluated on 12/12/2023 for chronic constipation and upper GI symptoms of postprandial nausea and fullness chronic abdominal pain. More details please refer to note written in that date. Patient was contacted over the phone to discuss the results of the anorectal manometer. Anorectal manometer showed: The anal pressure at rest was normal. The anal pressure during squeeze was normal. The rectoanal inhibitory reflex was present. Rectal sensation was normal. During simulated evacuation (maneuver #1),the increase in the intra- rectal pressure was normal, percent anal relaxation was reduced, residualanal pressure was normal, and the rectoanal pressure gradient was abnormal. The rectal balloon expulsion test was abnormal (>60 seconds). In the appropriate clinical context, this profile is suggestive of a rectal evacuation disorder We discussed with the patient the abnormal results of the anorectal manometry showing evidence of underlying defecatory disorder. We discussed the need for treatment with pelvic floor physical therapy with biofeedback therapy. Additionally, we discussed the correlation between pelvic floor dysfunction and potentially exacerbation in upper GI symptoms related to incomplete evacuation of the colon. Patient is currently on MiraLax with little improvement in symptoms. We recommended using Dulcolax 2 tablets every 3 days as needed to improve defecation. We are still waiting on completing the rest of the workup after stopping the Trulicity. ASSESSMENT / PLAN Ms. Naty Barahona is a very pleasant [...] Trulicity for 5-6 weeks. Her physical exam and anorectal manometer are suggestive of an underlying defecatory disorder. We will recommend undergoing pelvic floor physical therapy biofeedback therapy for underlying defecatorydisorder. #1 Chronic constipation with underlying defecatory disorder #2 Episodic fecal incontinence #3 Episodic nausea and postprandial fullness on Trulicity #4 Chronic abdominal pain 1. Pelvic floor physical therapy biofeedback therapy for underlying defecatory disorder. 2. Gastric emptying study with 48 hour colonic transit time 5-6 weeks after stopping Trulicity 3. Recommend MiraLax 2 caps once daily and use Dulcolax 2 tablets every 3 days as needed as rescue therapy.. Consider starting Trulance at a later stage. 3. Imaging with MR enterography (if GFR permits) or CT without contrast can be considered later if symptoms persist. Mohamud Saleh MD documented in this encounter Plan of Treatment Upcoming Encounters Date Type Department Care Team (Late st Contact Info) Description 02/24/2024 3:00 PM CDT Office Visit Department of Dermatology in [place], [place] [address] [place] [phone] ePpe Lobo M.D. [address] [place] [phone] 03/05/2024 7:15 AM CDT Appointment Department of Radiology, [facility], in [place], [place] [address] [place] [phone] Hung Botello M.D. [address] [place] [phone] 03/06/2024 8:15 AM CDT Appointment Department of Radiology, [facility], in [place], [place] [address] [place] [phone] Hung Botello M.D. [address] [place] [phone] 03/07/2024 8:00 AM CDT Appointment Department of Radiology, [facility], in [place], [place] [address] [place] [phone] Hung Botello M.D. [address] [place] [phone] documented as of this encounter Visit Diagnoses Not on filedocumented in this encounter Care Teams Cash Management Specialist Relationship Specialty Start Date End Date None Reported, Pcp PCP - General Family Medicine 02/06/23 documented as of this encounter
--- OUTSIDE RECORDS SUMMARY | 2024-01-29 07:53 | XMS_ITS | Referral Summary ---
Author Organization [facility] Address [address] [place] [address] Care Team Providers Care Blocker And Sewer Name Role Phone No Ref-Primary, Physician Primary [...] Overview: Added automatically from request for surgery [id number] Social History Tobacco Use Types Packs/Day Years [...] of Treatment Not on file Care Teams Blocker And Sewer Relationship Specialty Start Date End Date No Ref-Primary, Physician PCP - General 12/09/18
--- OUTSIDE RECORDS SUMMARY | 2024-01-29 07:53 | XMS_ITS ---
Author Organization [facility] Address [address] [place] [address] Care Team Providers Care Moisture Tester Name Role Phone Unavailable Unavailable Unavailable Surgery Details Not on file Complications Check Surgery Details section. Procedure Estimated Blood Loss Check Surgery Details section. Procedure Findings Check Surgery Details section. Procedure Specimens Taken Check Surgery Details section.
--- OUTSIDE RECORDS SUMMARY | 2024-01-29 07:53 | XMS_ITS | Encounter Summary ---
Author Organization [facility] Address [address] [place] [address] Care Team Providers Care Case Work Aide Name Role Phone None Reported, Pcp Primary Care Provider Unavail able Encounter Details Date Type Department Care Team (Latest Contact Info) Description 01/22/2024 Orders Only Division of Endocrinology in [place], [place] [address] [place] [phone] Inés Gipson M.D. [address] [place] [phone] Hypothyroidism Primary (Primary Dx) Social History Tobacco Use Types Packs/Day Years [...] your living situation today? I have a [facility] place to live 01/31/2023 Sex and [...] CDT Office Visit Department of Dermatology in [place], [place] 200 [place] [address] Pepe Lobo M.D. 200 [place] [address] 03/05/2024 7:15 AM CDT Appointment Department of Radiology, [facility], in [place], [place] [address] [place] [address] Hung Botello M.D. [address] [place] [phone] 03/06/2024 8:15 AM CDT Appointment Department of Radiology, [facility], in [place], [place] [address] [place] [address] Hung Botello M.D. [address] [place] [phone] 03/07/2024 8:00 AM CDT Appointment Department of Radiology, [facility], [place], [place] [address] [place] [address] Hung Botello M.D. [address] [place] [phone] documented as of this encounter Results * S-TSH (Thyroid-Stimulating Hormone - Sensitive) (01/22/2024 1:05 PM CDT) Pathologist [facility] TSH, Sensitive 1.1 0.3 - 4.2 mIU/L 01/22/2024 2:23 PM CDT DTL Blood (Blood, Venous) 01/22/2024 1:05 PM CDT 01/22/2024 1:50 PM CDT Inés Gipson M.D. LAB BLOOD ADD-ON [facility] 200 [place] [address], [place] DTL [facility] 200 [place] [address] documented in this encounter Visit Diagnoses Diagnosis Hypothyroidism Primary- Primary documented in this encounter Care Teams Case Work Aide Relationship Specialty Start Date End Date None Reported, Pcp PCP - General Family Medicine 02/06/23 documented as of this encounter
--- OUTSIDE RECORDS SUMMARY | 2024-01-29 07:53 | XMS_ITS | Clinical Summary ---
Author Organization [facility] Address [address] [place] [address] Care Team Providers Care Training Engineer Name Role Phone None Reported, Pcp Primary Care Provider Unavail able Source Comments Patient records contain information from all sites at [facility]. For routine questions regarding patient records, call [phone] during business hours, M-F 8:00 AM - 5:00 PM Central Time. Record requests for emergency care only can be directed to [phone] at any time.[facility] Allergies Active Allergy Reactions Criticality Noted [...] a day. Active blood sugar diagnostic strips (OneTouch Ultra Test [...] Overview: Added automatically from request for surgery [id number] Sinusitis Chronic 05/05/2018 Tendinitis Bicipital Left 10/22/2017 [...] Description 01/23/2024 Documentation Division of Gastroenterology in [place], [place] [address] [place] [address] Iván Sky M.D. 01/22/2024 12:54 PM CDT - 01/22/2024 11:59 PM CDT Hospital Encounter Department of Laboratory Medicine and Pathology, [facility], in [place], [place] [address] [place] [phone] Inés Gipson M.D. Hypothyroidism Primary Discharge Disposition: Home or Self Care 01/22/2024 11:35 AM CDT - 01/22/2024 12:53 PM CDT Hospital Encounter Division of Gastroenterology in [place], [place] [address] [place] [phone] Hung Botello M.D. Incontinence Fecal; Constipation Discharge Disposition: Home or Self Care 01/22/2024 11:00 AM CDT Clinical Support [facility] in [address] [phone] Hung Botello M.D. Peterson, Emily L, R.N. Incontinence Fecal; Constipation 01/22/2024 8:30 AM CDT Comprehensive Visit Division of Endocrinology in [address] [phone] Iván Sky M.D. Ayari, Lena, M.D. Constipation; Diabetes Mellitus Type 2 With Diabetic Neuropathy (HCC) 01/22/2024 Orders Only Division of Endocrinology in [address] [phone] Inés Gipson M.D. Hypothyroidism Primary (Primary Dx) 12/19/2023 8:39 AM CDT - 12/19/2023 11:59 PM CDT Hospital Encounter Department of Laboratory Medicine in [address] [phone] Iván Sky M.D. Constipation; Diabetes Mellitus Type 2 With Diabetic Neuropathy (HCC) Discharge Disposition: Home or Self Care 12/12/2023 3:00 PM CDT Nurse Only Department of Dermatology in [place], [place] [address] [place] [phone] Augusta Peña M.D. Anderson, Devon S, R.N. Discharge Disposition: Home or Self Care 12/12/2023 1:10 PM CDT Comprehensive Visit Division of Gastroenterology in [place], [place] [address] [place] [phone] Hung Botello M.D. Mehanna Al Snih, Gad, M.D. Diabetes Mellitus Type 2 With Diabetic Neuropathy (HCC) (Primary Dx); Constipation; Pain Abdominal Chronic 12/12/2023 11:57 AM CDT - 12/12/2023 11:59 PM CDT Hospital Encounter Department of Radiology, [facility], in [place], [place] [address] [place] [phone] Hung Botello M.D. Constipation Discharge Disposition: Home or Self Care 12/12/2023 Ancillary Procedure Department of Dermatology 12/11/2023 7:00 AM CDT Clinical Communication Virtual Review in [place], [place] 200 [place] [address] Pre-visit Intake 12/05/2023 2:00 PM CDT Procedure visit Department of Dermatology in [address] [phone] Pepe Lobo M.D. Scar (Primary Dx); Pain Cutaneous; Cicatricial Ectropion Right Lower Eyelid Discharge Disposition: Home or Self Care 12/05/2023 Ancillary Procedure Department of Dermatology from Last 3 Months Social History Tobacco [...] Date Recorded Employment status Working with temporary [employer] t[employer] 01/31/2023 Housing Stability Answer Date Recorded What is your living situation today? I have a [facility] place to live 01/31/2023 Sex and [...] CDT Office Visit Department of Dermatology in [place], [place] [address] [place] [phone] Pepe Lobo M.D. [address] [place] [phone] 03/05/2024 7:15 AM CDT Appointment Department of Radiology, [facility] in [place], [place] [address] [place] [phone] Hung Botello M.D. [address] [place] [phone] 03/06/2024 8:15 AM CDT Appointment Department of Radiology, [facility], in [place], [place] [address] [place] [phone] Hung Botello M.D. [address] [place] [phone] 03/07/2024 8:00 AM CDT Appointment Department of Radiology, [facility], [place], [place] [address] [place] [phone] Hung Botello M.D. [address] [place] [phone] Health Maintenance Due Date Last Done Comments Bone Density Scan (Osteoporo sis Screen) 1954 CT Colonography 1954 Cologuard 1954 Colonoscopy 1954 Colorectal Cancer Screening 1954 Diabetic Office Visit with F oot Exam 1954 Dilated Eye Exam 1954 FIT 1954 Hepatitis C Screening 1954 Mammogram 1954 Urine Albumin 1954 Visit: Chronic Disease, age 18+ 1954 Visit: Medicare Annual Wellness 1954 Hepatitis B Vaccines (1 of 3 - Risk 3-dose series) 2014 COVID-19 Vaccine (2022-2 4 season) 2023 07/17/2022, 01/31/2022, 06/20/2021, Additional history exists Depression Screening (Annual PHQ-2) 07/29/2023 Fall Risk Screen (Annual) 07/29/2023 Zoster Vaccines (2 of 2) 02/18/2024 12/24/2023 Potassium Level 02/19/2024 02/18/2023, 01/26, 06/23/2019, Additional history exists Sodium Level 02/19/2024 02/18/2023, 01/26, 06/23/2019, Additional history exists Influenza Vaccine (#1) 2024 , 05/26/2021, 04/11/2020, Additional history exists Hemoglobin A1C 06/20/2024 12/19/2023 Lipid (Cholesterol) Screening 06/23/2024, 12/11/2018, 08/22/2018, Additional history exists Creatinine Level (Kidney Fun ction Test) 12/18/2024 12/19/2023, 02/18/2023, 02/06/2023, Additional history exists Office Visit for Blood Press ure Check / Re-check 01/21/2025 01/22/2024 Thyroid Stimulating Hormone (TSH) test for thyroid function 01/21/2025 01/22/2024, 06/23/2019, 12/11/2018, Additional history exists DTaP,Tdap,and Td Vaccines (2 [...] PANEL, S Routine 06/23/2019 9 :20 AM SENIOR DATABASE ENGINEER from Last 3 Months or Most Recently [...] CDT Inés Gipson M.D. LAB BLOOD ADD-ON [facility] [address] [place] [address], [facility] [address] [place] [address] * (ABNORMAL) Hemoglobin A1c (12/19/2023 8:48 AM [...] LAB BLOOD ADD-O N Performing Organization Address City/[facility]/ZIP Co de Phone Number [facility] [address] [place] [address], [place] OWAT [facility] in [place] [address] [place] [address] * Glucose, Fasting (12/19/2023 8:48 AM CDT) Glucose, P 88 70 - 100 mg/dL 12/19/2023 1:12 PM CDT OWAT Last Intake 11 hr 12/19/2023 12:50 PM CDT OWAT Blood (Blood, Venous) 12/19/2023 8:48 AM CDT 12/19/2023 12:50 PM CDT Iván Saleh M.D. LAB BLOOD NON A DD-ON Performing Organization Address City/[facility]/ZIP Co de Phone Number [facility] [address] [place] [address], [place] OW[place] [facility] in [place] [address] [address] * (ABNORMAL) Creatinine with Estimated GFR (12/19/2023 8:48 AM CDT) Creatinine 1.13(H) 0.59 - 1.04 mg/dL 12/19/2023 1:31 PM CDT OWAT Estimated GFR (eGFR) 53(L) >=60 mL/min/BSA 12/19/2023 1:31 PM CDT OWAT Comment: Estimated GFR calculated using the 2020 CKD_EPI creatinine equation. Blood (Blood, Venous) 12/19/2023 8:48 AM CDT 12/19/2023 12:57 PM CDT Iván Saleh M.D. LAB BLOOD ADD-O N Performing Organization Address City/[facility]/ZIP Co de Phone Number [facility] [address] [place] [address], [facility] OWAT [facility] in [place] [address] [place] [address] * DX Abdomen 1 View (12/12/2023 12:17 [...] System IMG NON RAD IMAGI NG PROCEDURES IILA NA * PETERSON Excision 1-2 sites (12/05/2023 2:00 PM CDT) Narrative Pepe Lobo M.D. - 12/05/2023 2:00 PM CDT Pepe Lobo M.D. ? 12/06/2023 10:42 AM PREOP INDICATION: ??Scar revision. Date of Surgery: 12/05/2023 Surgeon: Pepe Lobo M.D. Padding Machine Operator: Augusta Peña M.D. Location: [place] ?? [facility]:[place] ?? Floor:16 ?? Room:DERMLA Visit Type: Outpatient PreOp Diagnosis: ??Hypertrophic scar [...] CDT Pepe Lobo M.D. LAB BLOOD ADD-ON [facility] [address] [place] [address], [facility] DTL [facility] [address] [place] [address] from Last 3 Months or Most Recently Relevant to Health Maintenance Care Teams Training Engineer Relationship Specialty Start Date End Date None Reported, Pcp PCP - General Family Medicine 02/06/23
--- OUTSIDE RECORDS SUMMARY | 2024-01-29 07:53 | XMS_ITS | Encounter Summary ---
Author Organization [facility] Address [address] [place] [address] Care Team Providers Care Biomedical Engineering Supervisor Name Role Phone No Ref-Primary, Physician Primary Care Provider Reason for Visit * Reason Onset Date Comments Appointment 12/03/2018 Tilt Table Test Encounter Details Date Type Department Care Team (Late st Contact Info) Description 12/03/2018 Telephone [facility] [address] [phone] Adult, Cardiology General Appointment (Tilt [...] it was cancelled. Naomi Razo Periop Electrophysiology Claims Investigator [phone] * Telephone Encounter - Augusta Asher - 01/02/2019 11:53 AM CDT M [facility] Call Center Phone Message May a detailed message be left on voicemail: yes Reason for Call: CANCELLATION - pt has been in hospital since December 19 and she would like to put these appointment on hold until he is out of the hospital, please call patient with further questions Action Taken: Message routed to: [facility] ([facility]): CARDIO * Telephone Encounter - Mayra Rosen [...] if possible. Action Taken: Message routed to: [facility] [place] ([facility]): Cardiology documented in this encounter Plan of Treatment Not on file documented as of this encounter Visit Diagnoses Not on filedocumented in this encounter Care Teams Biomedical Engineering Supervisor Relationship Specialty Start Date End Date No Ref-Primary, Physician PCP - General 12/09/18 documented as of this encounter
--- OUTSIDE RECORDS SUMMARY | 2024-01-29 07:53 | XMS_ITS | Encounter Summary ---
Author Organization [facility] Address [address] [place] [address] Care Team Providers Care It Quality Analyst Name Role Phone None Reported, Pcp Primary Care Provider Unavail able Reason for Referral * Outpatient (Routine) - Closed Specialty Diagnoses / Procedures Referred By Myriam wise Referred To Contact Diagnoses Incontinence Fecal Constipation Procedures Anorectal Manometry Hung Botello M.D. [address] [place] [phone] [facility] Referral ID Status Reason Start Date Expiration Date Visits Re quested Visits Authorized [id number] Closed 09/27/2023 09/26/2024 1 1 Reason for Visit * Outpatient (Routine) - Closed Specialty Diagnoses / Procedures Referred By Myriam wise Referred To Contact Diagnoses Incontinence Fecal Constipation Procedures Anorectal Manometry Hung Botello M.D. [address] [place] [phone] [facility] Referral ID Status Reason Start Date Expiration Date Visits Re quested Visits Authorized [id number] Closed 09/27/2023 09/26/2024 1 1 Encounter Details Date Type Department Care Team (Latest Contact Info) Description 01/22/2024 11:35 AM CDT - 01/22/2024 12:53 PM CDT Hospital Encounter Division of Gastroenterology in [place], [place] [address] [place] [phone] Hung Botello M.D. [address] [place] [phone] Incontinence Fecal; Constipation Discharge Disposition: Home or [...] your living situation today? I have a [facility] place to live 01/31/2023 Sex and [...] by mouth daily. blood sugar diagnostic strips ([employer] Ultra Test Strips) 1 test once as [...] CDT Office Visit Department of Dermatology in [place], [place] [address] [place] [phone] Pepe Lobo M.D. [address] [place] [phone] 03/05/2024 7:15 AM CDT Appointment Department of Radiology, [place], [place] [address] [place] [phone] Hung Botello M.D. [address] [place] [phone] 03/06/2024 8:15 AM CDT Appointment Department of Radiology, [place], [place] [address] [place] [phone] Hung Botello M.D. [address] [place] [phone] 03/07/2024 8:00 AM CDT Appointment Department of Radiology, [facility], in [place], [place] [address] [place] [address] Hung Botello M.D. [address] [place] [address] documented as of this encounter Procedures Procedure Name Priority Date/Time Associated Diagnosis Comments ANORECTAL MANOMETRY Routine 01/22/2024 5:13 PM CD T Incontinence Fecal Constipation documented in this encounter Results * Anorectal Manometry (01/22/2024 5:13 PM CDT) Hung Botello M.D. GI PROCEDURE ORDERAB LES MMODAL NA documented in this encounter Visit Diagnoses Diagnosis Incontinence Fecal Constipation documented in this encounter Care Teams It Quality Analyst Relationship Specialty Start Date End Date None Reported, Pcp PCP - General Family Medicine 02/06/23 documented as of this encounter
--- OUTSIDE RECORDS SUMMARY | 2024-01-29 07:54 | XMS_ITS | Clinical Summary ---
Author Organization [facility] Address [place], [place] [address] Care Team Providers Care Fuel Cell Builder Name Role Phone Aruna Mahan MD Primary [...] Date Resolved Date Acute pyelonephritis 05/05/2018 019 Immunizations Name Administration Dates Next Due Influenza [...] 165 cm (5' 4.96) 06/23/2019 8:20 AM SENIOR CORPORATE ACCOUNTANT Body Mass Index 29.81 06/23/2019 8:20 AM SENIOR CORPORATE ACCOUNTANT Plan of Treatment Upcoming Encounters Date Type Department Care Team (Late st Contact Info) Description 01/29/2024 8:00 AM CDT Ancillary Procedure [facility] [address] [place] [address] Health Maintenance Due Date Last Done Comments [...] 09/01/2018, Additional history exists COVID-19 vaccine series ( season) 2023 07/17/2022, 01/31/2022, 06/20/2021, Additional history exists Influenza for age 65+ 03/29/2024 04/07/2019 , 05/05/2018, 04/28/2017 Lipids for age 45-75 06/23/2024 06/23/2019, 12/11/2018, 08/22/2018, Additional history exists Tetanus booster 06/23/2029 06/23/2019 Tdap Completed 06/23/2019 Procedures Procedure Name Priority Date/Time Associated Diagnosis Comments LIPID PANEL Routine 06/23/2019 9:20 AM SENIOR CORPORATE ACCOUNTANT Mixed hyperlipidemia XR MAMMO BILAT SCREENING Routine 01/16/2019 2:00 PM CDT Breast screening, unspecified from Last 3 Months or Most Recently Relevant to Health Maintenance Results * (ABNORMAL) LIPID PANEL (06/23/2019 9:20 AM SENIOR CORPORATE ACCOUNTANT) CHOLESTEROL,TOTAL 182 100 - 199 mg/dL 06/23/2019 10:01 AM SENIOR CORPORATE ACCOUNTANT [facility] TRIGLYCERIDES 294(H) <150 mg/dL 06/23/2019 10:01 AM [facility] HDL CHOLESTEROL 48 >40 mg/dL 9 10:01 AM SENIOR CORPORATE ACCOUNTANT [facility] NON-HDL CHOLESTEROL 134 <145 mg/dl 06/23/2019 10:01 AM [facility] CHOL/HDL RATIO 3.79 <4.50 06/23/2019 10:01 AM SENIOR CORPORATE ACCOUNTANT [facility] LDL CHOLESTEROL 75 <=130 mg/dL 06/23/2019 10:01 AM [facility] PROVIDER ORDERED STATUS RANDOM 06/23/2019 10:01 AM [facility] Blood BLOOD SPECIMEN / Unknown Butterfly / Unknown 06/23/2019 9:20 AM SENIOR CORPORATE ACCOUNTANT 06/23/2019 9:20 AM SENIOR CORPORATE ACCOUNTANT Sydney Lakhani NP CHEMISTRY Performing Organization Address City/State/[facility] Co de Phone Number [facility] [address] [place] [address] * XR MAMMO BILAT SCREENING (01/16/2019 2:00 PM CDT) Anatomical Region Laterality Modality BREASTS, Breast Left, Breast Right Bilateral Mammography Impressions 01/19/2019 6:53 AM CDT ??There is no radiographic evidence for malignancy. ??Recommend annual mammograms. A lay language report of this examination will be provided to the patient. MAMMOGRAM ASSESSMENT: ??ACR 2 Benign Narrative 01/19/2019 6:53 AM CDT XR MAMMO BILAT SCREENING [[id number]] CLINICAL HISTORY: ??This is an asymptomatic 63 [...] Recently Relevant to Health Maintenance Care Teams Fuel Cell Builder Relationship Specialty Start Date End Date Aruna Mahan MD [address] [place] [address] PCP - General Family Practice 10/30/23
--- OUTSIDE RECORDS SUMMARY | 2024-01-29 07:54 | XMS_ITS | Encounter Summary ---
Author Organization [facility] Address [address] [place] [address] Care Team Providers Care Casing Sewer Name Role Phone None Reported, Pcp Primary [...] Date Recorded Employment status Working with temporary [email or web address] 01/31/2023 Housing Stability Answer Date Recorded What is your living situation today? I have a [facility] place to live 01/31/2023 Sex [...] CDT Office Visit Department of Dermatology in [place], [place] [address] [place] [address] Pepe Lobo M.D. [address] [place] [address] 03/05/2024 7:15 AM CDT Appointment Department of Radiology, [facility], in [place], [place] [address] [place] [address] Hung Botello M.D. [address] [place] [phone] 03/06/2024 8:15 AM CDT Appointment Department of Radiology, [facility], in [place], [place] [address] [place] [address] Hung Botello M.D. [address] [place] [phone] 03/07/2024 8:00 AM CDT Appointment Department of Radiology, [facility], in [place], [place] [address] [place] [address] Hung Botello M.D. [address] [place] [phone] documented as of this encounter Procedures Procedure [...] on filedocumented in this encounter Care Teams Casing Sewer Relationship Specialty Start Date End Date None Reported, Pcp PCP - General Family Medicine 02/06/23 documented as of this encounter
--- OUTSIDE RECORDS SUMMARY | 2024-01-29 07:54 | XMS_ITS | Encounter Summary ---
Author Organization [facility] Address [address] [place] [address] Care Team Providers Care Senior Ios Software Engineer Name Role Phone None Reported, Pcp Primary Care Provider Unavail able Reason for Referral * Outpatient (Routine) - Closed Specialty Diagnoses / Procedures Referred By Myriam wise Referred To Contact Diagnoses Constipation Procedures DX Abdomen 1 View Hung Botello M.D. [address] [place] [phone] [facility] Referral ID Status Reason Start Date Expiration Date Visits Re quested Visits Authorized [id number] Closed 09/27/2023 09/26/2024 1 1 Reason for Visit * Outpatient (Routine) - Closed Specialty Diagnoses / Procedures Referred By Myriam wise Referred To Contact Diagnoses Constipation Procedures DX Abdomen 1 View Hung Botello M.D. [address] [place] [phone] [facility] Referral ID Status Reason Start Date Expiration Date Visits Re quested Visits Authorized [id number] Closed 09/27/2023 09/26/2024 1 1 Encounter Details Date Type Department Care Team (Latest Contact Info) Description 12/12/2023 11:57 AM CDT - 12/12/2023 11:59 PM CDT Hospital Encounter Department of Radiology, [facility] in [place], [place] [address] [place] [phone] Hung Botello M.D. [address] [place] [phone] Constipation Discharge Disposition: Home or Self Care [...] your living situation today? I have a [facility] place to live 01/31/2023 Sex and [...] by mouth daily. blood sugar diagnostic strips ([employer] Ultra Test Strips) 1 test once as [...] for 10 days. 20 capsule 12/05/2023 12/15/2023 ascorbic acid, vitamin C, powder Take 1,000 [...] daily. 05/22/2020 01/22/2024 traMADoL (ULTRAM) 50 mg tabletIndications:Acu te Pain Take 1 tablet (50 mg total) by mouth every 6 (six) hours as needed for pain Indications: Acute Pain. 8 tablet 01/24/2023 01/22/2024 documented as of this encounter Plan of Treatment Upcoming Encounters Date Type Department Care Team (Late st Contact Info) Description 02/24/2024 3:00 PM CDT Office Visit Department of Dermatology in [place], [place] 200 [place] [address] Pepe Lobo M.D. 200 [place] [phone] 03/05/2024 7:15 AM CDT Appointment Department of Radiology, [facility], in [place], [place] [address] [place] [address] Hung Botello M.D. [address] [place] [phone] 03/06/2024 8:15 AM CDT Appointment Department of Radiology, [facility], in [place], [place] [address] [place] [address] Hung Botello M.D. [address] [place] [phone] 03/07/2024 8:00 AM CDT Appointment Department of Radiology, [place], [place] [address] [place] [address] Hung Botello M.D. [address] [place] [phone] documented as of this encounter Procedures Procedure [...] in the colon.Degenerative changes. Bibasilar atelectasis. Hung [facility] NG PROCEDURES documented in this encounter Visit Diagnoses Diagnosis Constipation documented in this encounter Care Teams Senior Ios Software Engineer Relationship Specialty Start Date End Date None Reported, Pcp PCP - General Family Medicine 02/06/23 documented as of this encounter
--- OUTSIDE RECORDS SUMMARY | 2024-01-29 07:54 | XMS_ITS | Encounter Summary ---
Author Organization [facility] Address [address] [place] [address] Care Team Providers Care Residential Leasing Manager Name Role Phone None Reported, Pcp Primary Care Provider Unavail able Reason for Referral * Outpatient (Routine) - Authorized Specialty Diagnoses / Procedures Referred By Contac t Referred To Contact Diagnoses Scar Procedures PETERSON Laser - Vbeam/pulse dye Augusta Peña M.D. [address] [place] [phone] [facility] Referral ID Status Reason Start Date Expiration Date V isits Requested Visits Authorized [id number] Authorized 12/05/2023 12/04/2024 1 1 * Outpatient (Routine) - Closed Specialty Diagnoses / Procedures Referred By Contac t Referred To Contact Dermatology Augusta Peña M.D. [address] [place] [phone] [facility] Referral ID Status Reason Start Date Expiration Date Visits Re quested Visits Authorized [id number] Closed 12/05/2023 06/05/2025 1 1 Scheduling Instructions Must be in afternoon following other appointments. Reason for Visit * Outpatient (Routine) - Closed Specialty Diagnoses / Procedures Referred By Contac t Referred To Contact Diagnoses Scar Procedures PETERSON Excision 1-2 sites Pepe Lobo M.D. [address] [place] [phone] [facility] Referral ID Status Reason Start Date Expiration Date Visits Re quested Visits Authorized [id number] Closed 10/10/2023 10/09/2024 1 1 Encounter Details Date Type Department Care Team (Latest Contact Info) Description 12/05/2023 2:00 PM CDT Procedure visit Department of Dermatology in [place], [place] [address] [place] [address] Pepe Lobo M.D. [address] [place] [address] Scar (Primary Dx); Pain Cutaneous; Cicatricial Ectropion [...] Date Recorded Employment status Working with temporary [employer] 01/31/2023 Housing Stability Answer Date Recorded What is your living situation today? I have a [facility] place to live 01/31/2023 Sex and Gender [...] of Surgery: 12/05/2023 Surgeon: Pepe Lobo M.D. Watchguard: Augusta Peña M.D. Location: [facility]: Floor:16 Room:[facility] Visit Type: Outpatient PreOp Diagnosis: Hypertrophic scar [...] CDT Office Visit Department of Dermatology in [place], [place] [address] [place] [address] Pepe Lobo M.D. [address] [place] [phone] 03/05/2024 7:15 AM CDT Appointment Department of Radiology, [facility], [place], [place] [address] [place] [address] Hung Botello M.D. [address] [place] [phone] 03/06/2024 8:15 AM CDT Appointment Department of Radiology, [facility] in [place], [place] [address] [place] [address] Hung Botello M.D. [address] [place] [phone] 03/07/2024 8:00 AM CDT Appointment Department of Radiology, [facility], in [place], [place] [address] [place] [address] Hung Botello M.D. [address] [place] [phone] Scheduled Orders Name Type Priority Associated Diagnoses [...] of Surgery: 12/05/2023 Surgeon: Pepe Lobo M.D. Watchguard: Augusta Peña M.D. Location: [place] ?? Bldg:GO ?? Floor:16 ?? Room:[facility] Visit Type: Outpatient PreOp Diagnosis: [...] mL documented in this encounter Care Teams Residential Leasing Manager Relationship Specialty Start Date End Date None Reported, Pcp PCP - General Family Medicine 02/06/23 documented as of this encounter
--- OUTSIDE RECORDS SUMMARY | 2024-01-29 07:54 | XMS_ITS | Encounter Summary ---
Author Organization [facility] Address [address] [place] [address] Care Team Providers Care Public Improvement Inspector Name Role Phone None Reported, Pcp Primary [...] Date Recorded Employment status Working with temporary [employer] 01/31/2023 Housing Stability Answer Date Recorded What is your living situation today? I have a [facility] place to live 01/31/2023 Sex and Gender [...] CDT Office Visit Department of Dermatology in [place], [place] [address] [place] [address] Pepe Lobo M.D. 200 [place] [address] 03/05/2024 7:15 AM CDT Appointment Department of Radiology, [facility], in [place], [place] [address] [place] [address] Hung Botello M.D. 200 [place] [phone] 03/06/2024 8:15 AM CDT Appointment Department of Radiology, [facility], in [place], [place] [address] [place] [address] Hung Botello M.D. [address] [place] [address] 03/07/2024 8:00 AM CDT Appointment Department of Radiology, [facility], in [place], [place] [address] [place] [address] Hung Botello M.D. [address] [place] [address] documented as of this encounter Procedures Procedure [...] on filedocumented in this encounter Care Teams Public Improvement Inspector Relationship Specialty Start Date End Date None Reported, Pcp PCP - General Family Medicine 02/06/23 documented as of this encounter
--- OUTSIDE RECORDS SUMMARY | 2024-01-29 07:54 | XMS_ITS | Encounter Summary ---
Author Organization [facility] Address [address] [place] [address] Care Team Providers Care Certified Vehicle Fire Investigator Name Role Phone None Reported, Pcp Primary Care Provider Unavail able Reason for Visit * Reason Onset Date Comments Pre-visit Intake 12/11/2023 Encounter Details Date Type Department Care Team (Latest Contact Info) Description 12/11/2023 7:00 AM CDT Clinical Communication Virtual Review in [place], [place] 200 [place] [address] Pre-visit Intake Social History Tobacco Use Types [...] your living situation today? I have a [facility] place to live 01/31/2023 Sex and Gender [...] CDT Office Visit Department of Dermatology in [place], [place] 200 [place] [address] Pepe Lobo M.D. 200 [place] [address] 03/05/2024 7:15 AM CDT Appointment Department of Radiology, [facility], in [place], [place] [address] [place] [address] Hung Botello M.D. [address] [place] [phone] 03/06/2024 8:15 AM CDT Appointment Department of Radiology, [facility] in [place], [place] [address] [place] [address] Hung Botello M.D. [address] [place] [phone] 03/07/2024 8:00 AM CDT Appointment Department of Radiology, [facility], in [place], [place] [address] [place] [address] Hung Botello M.D. [address] [place] [phone] documented as of this encounter Visit Diagnoses Not on filedocumented in this encounter Care Teams Certified Vehicle Fire Investigator Relationship Specialty Start Date End Date None Reported, Pcp PCP - General Family Medicine 02/06/23 documented as of this encounter
--- OUTSIDE RECORDS SUMMARY | 2024-01-29 07:54 | XMS_ITS | Encounter Summary ---
Author Organization [facility] Address [address] [place] [address] Care Team Providers Care Sweet Goods Machine Operator Name Role Phone None Reported, Pcp Primary Care Provider Unavail able Reason for Visit * Outpatient (Routine) - Closed Specialty Diagnoses / Procedures Referred By Myriam wise Referred To Contact Dermatology Augusta Peña M.D. [address] [place] [phone] [facility] Referral ID Status Reason Start Date Expiration Date Visits Re quested Visits Authorized [id number] Closed 12/05/2023 06/05/2025 1 1 Encounter Details Date Type Department Care Team (Late st Contact Info) Description 12/12/2023 3:00 PM CDT Nurse Only Department of Dermatology in [place], [place] [address] [place] [phone] Augusta Peña M.D. [address] [place] [phone] Kg Cabral R.N. [address] [place] [phone] Discharge Disposition: Home or Self Care Social [...] your living situation today? I have a [facility] place to live 01/31/2023 Sex and [...] on December 05, [address] Dwight Lobo([id number]) to right cheek for hypertrophic scar . Verbal consent for procedure obtained from patient and spouse. Patient discussed and seen with supervising entry level sales consultant Supervising Physician: Dr. Dwight Lobo ([id number]). Final Pause: A final pause occurred just [...] CDT Office Visit Department of Dermatology in [place], [place] [address] [place] [phone] Pepe Lobo M.D. [address] [place] [phone] 03/05/2024 7:15 AM CDT Appointment Department of Radiology, [facility], in [place], [place] [address] [place] [address] Hung Botello M.D. [address] [place] [address] 03/06/2024 8:15 AM CDT Appointment Department of Radiology, [facility] in [place], [place] [address] [place] [address] Hung Botello M.D. [address] [place] [address] 03/07/2024 8:00 AM CDT Appointment Department of Radiology, [facility], in [place], [place] [address] [place] [address] Hung Botello M.D. [address] [place] [address] documented as of this encounter Visit Diagnoses Not on filedocumented in this encounter Care Teams Sweet Goods Machine Operator Relationship Specialty Start Date End Date None Reported, Pcp PCP - General Family Medicine 02/06/23 documented as of this encounter
--- OUTSIDE RECORDS SUMMARY | 2024-01-29 07:54 | XMS_ITS | Encounter Summary ---
Author Organization [facility] Address [address] [place] [address] Care Team Providers Care Inpatient Auditor Name Role Phone None Reported, Pcp Primary Care Provider Unavail able Reason for Referral * Outpatient (Routine) - Closed Specialty Diagnoses / Procedures Referred By Contac t Referred To Contact Endocrinology Diagnoses Constipation Diabetes Mellitus Type 2 With Diabetic Neuropathy (HCC) Iván Sky M.D. 200 [place] [address] [facility] Referral ID Status Reason Start Date Expiration Date Visits Re quested Visits Authorized [id number] Closed 12/12/2023 06/12/2025 1 1 Reason for Visit [...] Expiration Date Visits Re quested Visits Authorized [id number] Closed 09/27/2023 09/26/2024 1 1 Encounter Details Date Type Department Care Team (Latest Contact Info) Description 12/12/2023 1:10 PM CDT Comprehensive Visit Division of Gastroenterology in [place], [place] [address] [place] [phone] Hung Botello M.D. [address] [place] [phone] Iván Sky M.D. 200 [place] [address] Diabetes Mellitus Type 2 With Diabetic Neuropathy [...] documented in this encounter Consult Notes * Hung Botello M.D. - 12/12/2023 1:10 PM CDT Supervisory note Patient seen with Dr. Cárdenas. In brief, this is the case of a 68-year-old woman with type 2 diabetes, depression, and other comorbidities who presents with chronic constipation, abdominal pain and dyspeptic symptoms. Of note, shehas been on Trulicity for about 7 years. 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 We will obtain an anorectal manometry. We will also place a referral to the Endocrinology team to see if Trulicity could be stopped while still optimizing her diabetes management. This would allow was to see whether Trulicity is contributing to any of her GI symptoms especially the dyspeptic ones. Furthermore, if Trulicity is held for 5-6 weeks then we can consider obtaining a whole gut transit study for further evaluation of her GI symptoms. The patient has had an upper endoscopy and colonoscopy outside of [place] about a year ago. There is no indication to repeat those tests at this point but we will request the reports for our revision and for documentation. The patient also had a CT scan in 2019 without contrast. Of note iodine contrast is listed on her allergy list as causing anaphylaxis and angioedema. Given no change in her symptoms since the non contrastedCT in 2019, and given the absence of alarming symptoms, we will not pursue cross-sectional imaging at this time. If the patient develops alarming symptoms then we can consider and discuss what would be the safest imaging modality to pursue. Agree with Dr. Cárdenas. * Iván Sky M.D. - 12/12/2023 1:10 [...] of either small unformed or watery stools ([place] 5-7) or large unformed stools ([place] 6) with drastic increase in abdominal pain [...] ago Cystocele and bladder prolapse repair in 2011 Social history: Nonsmoker No alcohol consumption No [...] CDT Office Visit Department of Dermatology in [place], [place] [address] [place] [address] Pepe Lobo M.D. [address] [place] [phone] 03/05/2024 7:15 AM CDT Appointment Department of Radiology, [place], [place] [address] [place] [address] Hung Botello M.D. [address] [place] [phone] 03/06/2024 8:15 AM CDT Appointment Department of Radiology, [place], [place] [address] [place] [phone] Hung Botello M.D. [address] [place] [phone] 03/07/2024 8:00 AM CDT Appointment Department of Radiology, [facility], in [place], [place] [address] [place] [address] Hung Botello M.D. [address] [place] [phone] Scheduled Referrals Name Type Priority Associated Diagnoses [...] BLOOD NON A DD-ON Performing Organization Address [facility]/ZIP Co de Phone Number [facility] [address] [place] [address], [place] OWAT [facility] [place] [address] [place] [address] * (ABNORMAL) Creatinine with Estimated GFR (12/19/2023 8:48 AM CDT) Creatinine 1.13(H) 0.59 - 1.04 mg/dL 12/19/2023 1:31 PM CDT OWAT Estimated GFR (eGFR) 53(L) >=60 mL/min/BSA 12/19/2023 1:31 PM CDT OWAT Comment: Estimated GFR calculated using the 2020 CKD_EPI creatinine equation. Blood (Blood, Venous) 12/19/2023 8:48 AM CDT 12/19/2023 12:57 PM CDT Iván Saleh M.D. LAB BLOOD ADD-O N Performing Organization Address [facility]/ZIP Co de Phone Number [facility] [address] [place] [address], [place] OW[place] [facility] [place] [address] [place] [address] * (ABNORMAL) Hemoglobin A1c (12/19/2023 8:48 AM [...] LAB BLOOD ADD-O N Performing Organization Address City/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
== END 2024-01-29 07:50 | disposition home or self-care (01) ==
LOC: RAD 07:51
PROVIDERS: PCP Family Medicine; Visit Provider Family Medicine
DX: I34.1 Nonrheumatic mitral (valve) prolapse (principal); I34.0 Nonrheumatic mitral (valve) insufficiency; Z78.0 Asymptomatic menopausal state
CPT/HCPCS: 93306

== ENCOUNTER 2024-02-13 13:53 | Outpatient (CLI) | payer OTHER, SELFPAY ==
--- OUTSIDE RECORDS SUMMARY | 2024-02-13 13:56 | XMS_ITS | Clinical Summary ---
Author Organization [facility] Address [address] [place] [address] Care Team Providers Care Licensed Master Social Worker Name Role Phone None Reported, Pcp Primary Care Provider Unavail able Source Comments Patient records contain information from all sites at [facility]. For routine questions regarding patient records, call [phone] during business hours, M-F 8:00 AM - 5:00 PM Central Time. Record requests for emergency care only can be directed to [phone] at any time.[facility] Allergies Active Allergy Reactions Criticality Noted Date [...] Overview: Added automatically from request for surgery [id number] Sinusitis Chronic 05/05/2018 Tendinitis Bicipital Left 10/22/2017 [...] Description 01/23/2024 Documentation Division of Gastroenterology in [place], [place] [address] [place] [address] Iván Sky M.D. 01/22/2024 12:54 PM CDT - 01/22/2024 11:59 PM CDT Hospital Encounter Department of Laboratory Medicine and Pathology, [facility], in [place], [place] [address] [place] [phone] Inés Gipson M.D. Hypothyroidism Primary Discharge Disposition: Home or Self Care 01/22/2024 11:35 AM CDT - 01/22/2024 12:53 PM CDT Hospital Encounter Division of Gastroenterology in [place], [place] [address] [place] [phone] Hung Botello M.D. Incontinence Fecal; Constipation Discharge Disposition: Home or Self Care 01/22/2024 11:00 AM CDT Clinical Support Enema Prep Facility in [address] [phone] Hung Botello M.D. Peterson, Emily L, R.N. Incontinence Fecal; Constipation 01/22/2024 8:30 AM CDT Comprehensive Visit Division of Endocrinology in [address] [phone] Iván Sky M.D. Ayari, Lena, M.D. Constipation; Diabetes Mellitus Type 2 With Diabetic Neuropathy (HCC) 01/22/2024 Orders Only Division of Endocrinology in [address] [phone] Inés Gipson M.D. Hypothyroidism Primary (Primary Dx) 12/19/2023 8:39 AM CDT - 12/19/2023 11:59 PM CDT Hospital Encounter Department of Laboratory Medicine in [address] [address] Iván Sky M.D. Constipation; Diabetes Mellitus Type 2 With Diabetic Neuropathy (HCC) Discharge Disposition: Home or Self Care 12/12/2023 3:00 PM CDT Nurse Only Department of Dermatology in [place], [place] [address] [place] [phone] Augusta Peña M.D. Anderson, Devon S, R.N. Discharge Disposition: Home or Self Care 12/12/2023 1:10 PM CDT Comprehensive Visit Division of Gastroenterology in [place], [place] [address] [place] [phone] Hung Botello M.D. Mehanna Al Snih, Gad, M.D. Diabetes Mellitus Type 2 With Diabetic Neuropathy (HCC) (Primary Dx); Constipation; Pain Abdominal Chronic 12/12/2023 11:57 AM CDT - 12/12/2023 11:59 PM CDT Hospital Encounter Department of Radiology, [facility], in [place], [place] [address] [place] [phone] Hung Botello M.D. Constipation Discharge Disposition: Home or Self Care 12/12/2023 Ancillary Procedure Department of Dermatology 12/11/2023 7:00 AM CDT Clinical Communication Virtual Review in [place], [place] 200 [place] [address] Pre-visit Intake 12/05/2023 2:00 PM CDT Procedure visit Department of Dermatology in [address] [phone] Pepe Lobo M.D. Scar (Primary Dx); Pain [...] Date Recorded Employment status Working with temporary [employer] tions 01/31/2023 Housing Stability Answer Date Recorded [...] CDT Office Visit Department of Dermatology in [place], [place] [address] [place] [phone] Pepe Lobo M.D. [address] [place] [phone] 03/05/2024 7:15 AM CDT Appointment Department of Radiology, [facility] in [place], [place] [address] [place] [phone] Hung Botello M.D. [address] [place] [phone] 03/06/2024 8:15 AM CDT Appointment Department of Radiology, [facility], in [place], [place] [address] [place] [phone] Hung Botello M.D. [address] [place] [phone] 03/07/2024 8:00 AM CDT Appointment Department of Radiology, [facility], [place], [place] [address] [place] [phone] Hung Botello M.D. [address] [place] [phone] Health Maintenance Due Date Last Done Comments [...] IMAGE EXAM Routine 12/12/2023 12:00 AM CDT PETEROSN EXCISION 1-2 SITES Routine 12/05/2023 2:00 PM CDT Scar DERMATOLOGY IMAGE EXAM Routine 12/05/2023 12:00 AM CDT COMPREHENSIVE METABOLIC PANEL, S/P Routine 02/18/2023 12:37 PM CDT Wound Infection Initial (HCC) EXTI LIPID PANEL, S Routine 06/23/2019 9 :20 AM SAP SECURITY CONSULTANT from Last 3 Months or Most Recently [...] CDT Inés Gipson M.D. LAB BLOOD ADD-ON [facility] [address] [place] [address], [facility] [address] [place] [address] * (ABNORMAL) Hemoglobin A1c (12/19/2023 8:48 AM [...] LAB BLOOD ADD-O N Performing Organization Address City/[facility]/ZIP Co de Phone Number [facility] [address] [place] [address], [place] OWAT [facility] [place] [address] [place] [address] * Glucose, Fasting (12/19/2023 8:48 AM CDT) Glucose, P 88 70 - 100 mg/dL 12/19/2023 1:12 PM CDT OWAT Last Intake 11 hr 12/19/2023 12:50 PM CDT OWAT Blood (Blood, Venous) 12/19/2023 8:48 AM CDT 12/19/2023 12:50 PM CDT Iván Saleh M.D. LAB BLOOD NON A DD-ON Performing Organization Address City/[facility]/ZIP Co de Phone Number [facility] [address] [place] [address], [place] OW[place] [facility] [place] [address], [place] [address] * (ABNORMAL) Creatinine with Estimated GFR (12/19/2023 8:48 AM CDT) Creatinine 1.13(H) 0.59 - 1.04 mg/dL 12/19/2023 1:31 PM CDT OWAT Estimated GFR (eGFR) 53(L) >=60 mL/min/BSA 12/19/2023 1:31 PM CDT OWAT Comment: Estimated GFR calculated using the 2020 CKD_EPI creatinine equation. Blood (Blood, Venous) 12/19/2023 8:48 AM CDT 12/19/2023 12:57 PM CDT Iván Saleh M.D. LAB BLOOD ADD-O N Performing Organization Address City/[facility]/ZIP Co de Phone Number [facility] [address] [place] [address], [facility] OWAT [facility] [place] [address] [place] [phone] * DX Abdomen 1 View (12/12/2023 12:17 [...] System IMG NON RAD IMAGI NG PROCEDURES IINH NA * PETERSON Excision 1-2 sites (12/05/2023 2:00 PM CDT) Narrative Pepe Lobo M.D. - 12/05/2023 2:00 PM CDT Pepe Lobo M.D. ? 12/06/2023 10:42 AM PREOP INDICATION: ??Scar revision. Date of Surgery: 12/05/2023 Surgeon: Pepe Lobo M.D. Car Wrecker: Augusta Peña M.D. Location: [place] ?? [facility]:[place] ?? Floor:16 ?? Room:DERMNM Visit Type: Outpatient PreOp Diagnosis: ??Hypertrophic scar [...] CDT Pepe Lobo M.D. LAB BLOOD ADD-ON [facility] [address] [place] [address], [facility] DTL [facility] [address] [place] [address] from Last 3 Months or Most Recently Relevant to Health Maintenance Care Teams Licensed Master Social Worker Relationship Specialty Start Date End Date None Reported, Pcp PCP - General Family Medicine 02/06/23
--- OUTSIDE RECORDS SUMMARY | 2024-02-13 13:56 | XMS_ITS | Encounter Summary ---
Author Organization [facility] Address [address] [place] [address] Care Team Providers Care Flatwork Washer Name Role Phone No Ref-Primary, Physician Primary Care Provider Reason for Visit * Reason Onset Date Comments Appointment 12/03/2018 Tilt Table Test Encounter Details Date Type Department Care Team (Late st Contact Info) Description 12/03/2018 Telephone [facility] [address] [address] Adult, Cardiology General Appointment (Tilt [...] it was cancelled. Naomi Razo Periop Electrophysiology Contract Coordinator [phone] * Telephone Encounter - Augusta Asher - 01/02/2019 11:53 AM CDT M [facility] Call Center Phone Message May a detailed message be left on voicemail: yes Reason for Call: CANCELLATION - pt has been in hospital since December 19 and she would like to put these appointment on hold until he is out of the hospital, please call patient with further questions Action Taken: Message routed to: [facility] ([facility]): CARDIO * Telephone Encounter [...] if possible. Action Taken: Message routed to: [facility] ([facility]): Cardiology documented in this encounter Plan of Treatment Not on file documented as of this encounter Visit Diagnoses Not on filedocumented in this encounter Care Teams Flatwork Washer Relationship Specialty Start Date End Date No Ref-Primary, Physician PCP - General 12/09/18 documented as of this encounter
--- OUTSIDE RECORDS SUMMARY | 2024-02-13 13:56 | XMS_ITS | Referral Summary ---
Author Organization [facility] Address [address] [place] [address] Care Team Providers Care Station Operator Name Role Phone No Ref-Primary, Physician Primary [...] Overview: Added automatically from request for surgery [id number] Social History Tobacco Use Types Packs/Day Years [...] of Treatment Not on file Care Teams Station Operator Relationship Specialty Start Date End Date No Ref-Primary, Physician PCP - General 12/09/18
--- OUTSIDE RECORDS SUMMARY | 2024-02-13 13:56 | XMS_ITS | Encounter Summary ---
Author Organization [facility] Address [address] [place] [address] Care Team Providers Care Bakery Demonstrator Name Role Phone None Reported, Pcp Primary Care Provider Unavail able Encounter Details Date Type Department Care Team ([facility] st Contact Info) Description 01/23/2024 Documentation Division of Gastroenterology in [place], [place] [address] [place] [phone] Iván Sky M.D. [address] [place] [phone] Social History Tobacco Use Types Packs/Day Years [...] your living situation today? I [facility] 01/31/2023 Sex and [...] CDT Office Visit Department of Dermatology in [place], [place] [address] [place] [phone] Pepe Lobo M.D. [address] [place] [phone] 03/05/2024 7:15 AM CDT Appointment Department of Radiology, [facility], in [place], [place] [address] [place] [address] Hung Botello M.D. [address] [place] [phone] 03/06/2024 8:15 AM CDT Appointment Department of Radiology, [facility], in [place], [place] [address] [place] [address] Hung Botello M.D. [address] [place] [phone] 03/07/2024 8:00 AM CDT Appointment Department of Radiology, [facility], in [place], [place] [address] [place] [address] Hung Botello M.D. [address] [place] [phone] documented as of this encounter Visit Diagnoses Not on filedocumented in this encounter Care Teams Bakery Demonstrator Relationship Specialty Start Date End Date None Reported, Pcp PCP - General Family Medicine 02/06/23 documented as of this encounter
--- OUTSIDE RECORDS SUMMARY | 2024-02-13 13:56 | XMS_ITS | Referral Summary ---
Author Organization [facility] Address [address] [place] [address] Care Team Providers Care Residential Pest Control Technician Name Role Phone None Reported, Pcp Primary Care Provider Unavail able Source Comments Patient records contain information from all sites at [facility]. For routine questions regarding patient records, call [phone] during business hours, M-F 8:00 AM - 5:00 PM Central Time. Record requests for emergency care only can be directed to [phone] at any time.[facility] Encounters Date Type Department Care Team Description 01/23/2024 Documentation Division of Gastroenterology in [place], [place] [address] [place] [phone] Iván Sky M.D. 01/22/2024 12:54 PM CDT - 01/22/2024 11:59 PM CDT Hospital Encounter Department of Laboratory Medicine and Pathology, [facility], in [place], [place] [address] [place] [phone] Inés Gipson M.D. Hypothyroidism Primary Discharge Disposition: Home or Self Care 01/22/2024 Orders Only Division of Endocrinology in [place], [place] [address] [place] [phone] Inés Gipson M.D. Hypothyroidism Primary (Primary Dx) 01/22/2024 11:00 AM CDT Clinical Support Enema Prep Facility in [place], [place] [address] [place] [phone] Hung Botello M.D. Peterson, Emily L, R.N. Incontinence Fecal; Constipation 01/22/2024 11:35 AM CDT - 01/22/2024 12:53 PM CDT Hospital Encounter Division of Gastroenterology in [place], [place] [address] [place] [phone] Hung Botello M.D. Incontinence Fecal; Constipation Discharge Disposition: Home or Self Care 01/22/2024 8:30 AM CDT Comprehensive Visit Division of Endocrinology in [address] [phone] Iván Sky M.D. Ayari, Lena, M.D. Constipation; Diabetes Mellitus Type 2 With Diabetic Neuropathy (HCC) 12/19/2023 8:39 AM CDT - 12/19/2023 11:59 PM CDT Hospital Encounter Department of Laboratory Medicine in [address] [phone] Iván Sky M.D. Constipation; Diabetes Mellitus Type 2 With Diabetic Neuropathy (HCC) Discharge Disposition: Home or Self Care 12/12/2023 Ancillary Procedure Department of Dermatology 12/12/2023 3:00 PM CDT Nurse Only Department of Dermatology in [address] [phone] Augusta Peña M.D. Anderson, Devon S, RAlokN. Discharge Disposition: Home or Self Care 12/12/2023 11:57 AM CDT - 12/12/2023 11:59 PM CDT Hospital Encounter Department of Radiology, [facility], in [address] [phone] Hung Botello M.D. Constipation Discharge Disposition: Home or Self Care 12/12/2023 1:10 PM CDT Comprehensive Visit Division of Gastroenterology in [address] [phone] Hung Botello M.D. Mehanna Al Snih, Gad, M.D. Diabetes Mellitus Type 2 With Diabetic Neuropathy (HCC) (Primary Dx); Constipation; Pain Abdominal Chronic 12/11/2023 7:00 AM CDT Clinical Communication Virtual Review in [address] [phone] Pre-visit Intake 12/05/2023 Ancillary Procedure Department of Dermatology 12/05/2023 2:00 PM CDT Procedure visit Department of Dermatology in [place], [place] [address] [place] [address] Pepe Lobo M.D. Scar (Primary Dx); Pain [...] a day. Active blood sugar diagnostic strips ([employer] Ultra Test Strips) 1 test once as [...] Overview: Added automatically from request for surgery [id number] Sinusitis Chronic 05/05/2018 Tendinitis Bicipital Left 10/22/2017 [...] Date Recorded Employment status Working with temporary [employer] tions 01/31/2023 Housing Stability Answer Date Recorded [...] CDT Office Visit Department of Dermatology in [address] [phone] Pepe Lobo M.D. [address] [place] [phone] 03/05/2024 7:15 AM CDT Appointment Department of Radiology, [place], [place] [address] [place] [phone] Hung Botello M.D. [address] [place] [phone] 03/06/2024 8:15 AM CDT Appointment Department of Radiology, [facility] in [place], [place] [address] [place] [phone] Hung Botello M.D. [address] [place] [phone] 03/07/2024 8:00 AM CDT Appointment Department of Radiology, [place], [place] [address] [place] [phone] Hung Botello M.D. [address] [place] [phone] Procedures Procedure Name Priority Date/Time Associated Diagnosis [...] PANEL, S Routine 06/23/2019 9 :20 AM SOFT TOP INSTALLER from Last 3 Months or Most Recently Relevant to Health Maintenance Results * Anorectal Manometry (01/22/2024 5:13 PM CDT) Hung Botlelo M.D. GI PROCEDURE ORDERAB LES MMODAL NA * S-TSH (Thyroid-Stimulating Hormone - Sensitive) (01/22/2024 1:05 PM CDT) TSH, Sensitive 1.1 0.3 - 4.2 mIU/L 01/22/2024 2:23 PM CDT DTL Blood (Blood, Venous) 01/22/2024 1:05 PM CDT 01/22/2024 1:50 PM CDT Inés Gipson M.D. LAB BLOOD ADD-ON Performing Organization Address City/[facility]/ZIP Co de Phone Number [facility] 200 [place] [address], [facility] 200 [place] [address] * (ABNORMAL) Hemoglobin A1c (12/19/2023 8:48 AM [...] LAB BLOOD ADD-O N Performing Organization Address City/[facility]/ZIP Co de Phone Number [facility] [address] [place] [address], [place] OWAT [facility] [place] [address] [place] [address] * Glucose, Fasting (12/19/2023 8:48 AM CDT) Glucose, P 88 70 - 100 mg/dL 12/19/2023 1:12 PM CDT OWAT Last Intake 11 hr 12/19/2023 12:50 PM CDT OWAT Blood (Blood, Venous) 12/19/2023 8:48 AM CDT 12/19/2023 12:50 PM CDT Iván Saleh M.D. LAB BLOOD NON A DD-ON Performing Organization Address [facility]/ZIP Co de Phone Number [facility] [address] [place] [address], [facility] OWAT [facility] [place] [address] [place] [address] * (ABNORMAL) Creatinine with Estimated GFR (12/19/2023 8:48 AM CDT) Creatinine 1.13(H) 0.59 - 1.04 mg/dL 12/19/2023 1:31 PM CDT OWAT Estimated GFR (eGFR) 53(L) >=60 mL/min/BSA 12/19/2023 1:31 PM CDT OWAT Comment: Estimated GFR calculated using the 2020 CKD_EPI creatinine equation. Blood (Blood, Venous) 12/19/2023 8:48 AM CDT 12/19/2023 12:57 PM CDT Iván Saleh M.D. LAB BLOOD ADD-O N Performing Organization Address [facility]/ZIP Co de Phone Number [facility] [address] [place] [address], [place] OW[place] [facility] [place] [address] [place] [address] * DX Abdomen 1 View (12/12/2023 12:17 [...] of Surgery: 12/05/2023 Surgeon: Pepe Lobo M.D. Vice President: Augusta Peña M.D. Location: [place] ?? [facility]:[place] ?? Floor:16 ?? Room:[facility] Visit Type: Outpatient PreOp Diagnosis: ??Hypertrophic scar [...] Comprehensive Metabolic Panel (02/18/2023 12:37 PM CDT) [facility] Potassium, S 4.6 3.6 - 5.2 mmol/L [...] CDT Pepe Lobo M.D. LAB BLOOD ADD-ON [facility] [address] [place] [address], [facility] DTL [facility] [address] [place] [address] from Last 3 Months or Most Recently Relevant to Health Maintenance Care Teams Residential Pest Control Technician Relationship Specialty Start Date End Date None Reported, Pcp PCP - General Family Medicine 02/06/23
--- OUTSIDE RECORDS SUMMARY | 2024-02-13 13:56 | XMS_ITS ---
Author Organization [facility] Address [address] [place] [address] Care Team Providers Care Alternative Education Teacher Name Role Phone Unavailable Unavailable Unavailable Surgery Details Not on file Complications Check Surgery Details section. Procedure Estimated Blood Loss Check Surgery Details section. Procedure Findings Check Surgery Details section. Procedure Specimens Taken Check Surgery Details section.
--- OUTSIDE RECORDS SUMMARY | 2024-02-13 13:56 | XMS_ITS | Encounter Summary ---
Author Organization [facility] Address [address] [place] [address] Care Team Providers Care Director Of Casework Name Role Phone None Reported, Pcp Primary Care Provider Unavail able Reason for Referral * Outpatient (Routine) - Closed Specialty Diagnoses / Procedures Referred By Myriam wise Referred To Contact Diagnoses Incontinence Fecal Constipation Procedures Anorectal Manometry Hung Botello M.D. [address] [place] [phone] [facility] Referral ID Status Reason Start Date Expiration Date Visits Re quested Visits Authorized [id number] Closed 09/27/2023 09/26/2024 1 1 Reason for Visit * Outpatient (Routine) - Closed Specialty Diagnoses / Procedures Referred By Myriam wise Referred To Contact Diagnoses Incontinence Fecal Constipation Procedures Anorectal Manometry Hung Botello M.D. [address] [place] [phone] [facility] Referral ID Status Reason Start Date Expiration Date Visits Re quested Visits Authorized [id number] Closed 09/27/2023 09/26/2024 1 1 Encounter Details Date Type Department Care Team (Latest Contact Info) Description 01/22/2024 11:35 AM CDT - 01/22/2024 12:53 PM CDT Hospital Encounter Division of Gastroenterology in [place], [place] [address] [place] [phone] Hung Botello M.D. [address] [place] [phone] Incontinence Fecal; Constipation Discharge Disposition: Home or [...] your living situation today? I have a [facility] place to live 01/31/2023 Sex and [...] by mouth daily. blood sugar diagnostic strips ([employer] Ultra Test Strips) 1 test once as [...] CDT Office Visit Department of Dermatology in [place], [place] [address] [place] [phone] Pepe Lobo M.D. [address] [place] [phone] 03/05/2024 7:15 AM CDT Appointment Department of Radiology, [place], [place] [address] [place] [phone] Hung Botello M.D. [address] [place] [phone] 03/06/2024 8:15 AM CDT Appointment Department of Radiology, [place], [place] [address] [place] [phone] Hung Botello M.D. [address] [place] [phone] 03/07/2024 8:00 AM CDT Appointment Department of Radiology, [facility], in [place], [place] [address] [place] [address] Hung Botello M.D. [address] [place] [address] documented as of this encounter Procedures Procedure Name Priority Date/Time Associated Diagnosis Comments ANORECTAL MANOMETRY Routine 01/22/2024 5:13 PM CD T Incontinence Fecal Constipation documented in this encounter Results * Anorectal Manometry (01/22/2024 5:13 PM CDT) Hung Botello M.D. GI PROCEDURE ORDERAB LES MMODAL NA documented in this encounter Visit Diagnoses Diagnosis Incontinence Fecal Constipation documented in this encounter Care Teams Director Of Casework Relationship Specialty Start Date End Date None Reported, Pcp PCP - General Family Medicine 02/06/23 documented as of this encounter
--- OUTSIDE RECORDS SUMMARY | 2024-02-13 13:56 | XMS_ITS | Clinical Summary ---
Author Organization [facility] Address [address] [place] [address] Care Team Providers Care Oyster Sorter Name Role Phone No Ref-Primary, Physician Primary [...] Overview: Added automatically from request for surgery [id number] Family History Medical History Relation Comments Hypertension [...] of Treatment Not on file Care Teams Oyster Sorter Relationship Specialty Start Date End Date No Ref-Primary, Physician PCP - General 12/09/18
--- OUTSIDE RECORDS SUMMARY | 2024-02-13 13:56 | XMS_ITS | Encounter Summary ---
Author Organization [facility] Address [address] [place] [address] Care Team Providers Care Manager Child Name Role Phone None Reported, Pcp Primary Care Provider Unavail able Reason for Visit * Reason Comments Constipation * Outpatient (Routine) - Closed Specialty Diagnoses / Procedures Referred By Myriam wise Referred To Contact Diagnoses Incontinence Fecal Constipation Procedures Enema Prep Hung Botello M.D. [address] [place] [phone] [facility] Referral ID Status Reason Start Date Expiration Date Visits Re quested Visits Authorized [id number] Closed 09/27/2023 09/26/2024 1 1 Encounter Details Date Type Department Care Team (Latest Contact Info) Description 01/22/2024 11:00 AM CDT Clinical Support Enema Prep Facility in [place], [place] [address] [place] [phone] Hung Botello M.D. [address] [place] [phone] Glendy Wadsworth R.N. Incontinence Fecal; Constipation Social [...] your living situation today? I have a [facility] place to live 01/31/2023 Sex and [...] CDT Office Visit Department of Dermatology in [place], [place] [address] [place] [phone] Pepe Lobo M.D. [address] [place] [phone] 03/05/2024 7:15 AM CDT Appointment Department of Radiology, [facility] in [place], [place] [address] [place] [phone] Hung Botello M.D. [address] [place] [phone] 03/06/2024 8:15 AM CDT Appointment Department of Radiology, [facility], in [place], [place] [address] [place] [phone] Hung Botello M.D. [address] [place] [phone] 03/07/2024 8:00 AM CDT Appointment Department of Radiology, [place], [place] [address] [place] [phone] Hung Botello M.D. [address] [place] [phone] documented as of this encounter Visit Diagnoses Diagnosis Incontinence Fecal Constipation documented in this encounter Care Teams Manager Child Relationship Specialty Start Date End Date None Reported, Pcp PCP - General Family Medicine 02/06/23 documented as of this encounter
--- OUTSIDE RECORDS SUMMARY | 2024-02-13 13:56 | XMS_ITS | Encounter Summary ---
Author Organization [facility] Address [address] [place] [address] Care Team Providers Care Cold Type Artist Name Role Phone None Reported, Pcp Primary Care Provider Unavail able Reason for Visit * Outpatient (Routine) - Closed Specialty Diagnoses / Procedures Referred By Myriam wise Referred To Contact Endocrinology Diagnoses Constipation Diabetes Mellitus Type 2 With Diabetic Neuropathy (HCC) Iván Sky M.D. [address] [place] [phone] [facility] Referral ID Status Reason Start Date Expiration Date Visits Re quested Visits Authorized [id number] Closed 12/12/2023 06/12/2025 1 1 Encounter Details Date Type Department Care Team (Latest Contact Info) Description 01/22/2024 8:30 AM CDT Comprehensive Visit Division of Endocrinology in [place], [place] [address] [place] [phone] Iván Sky M.D. [address] [place] [phone] Candi Mon M.D. [address] [place] [phone] Constipation; Diabetes Mellitus Type 2 With Diabetic [...] months with her local provider. A hemoglobin U4knhorwm 7% is sufficient to reduce long-term microvascular [...] states that she was referred by her electrotype caster due to concern that Trulicity may becontributing [...] CDT Office Visit Department of Dermatology in [place], [place] [address] [place] [phone] Pepe Lobo M.D. [address] [place] [phone] 03/05/2024 7:15 AM CDT Appointment Department of Radiology, [place], [place] [address] [place] [phone] Hung Botello M.D. [address] [place] [phone] 03/06/2024 8:15 AM CDT Appointment Department of Radiology, [facility], in [place], [place] [address] [place] [phone] Hung Botello M.D. [address] [place] [phone] 03/07/2024 8:00 AM CDT Appointment Department of Radiology, [facility] [place], [place] [address] [place] [address] Hung Botello M.D. [address] [place] [phone] documented as of this encounter Visit Diagnoses Diagnosis Constipation Diabetes Mellitus Type 2 With Diabetic Neuropathy (HCC) documented in this encounter Care Teams Cold Type Artist Relationship Specialty Start Date End Date None Reported, Pcp PCP - General Family Medicine 02/06/23 documented as of this encounter
--- OUTSIDE RECORDS SUMMARY | 2024-02-13 13:56 | XMS_ITS | Encounter Summary ---
Author Organization [facility] Address [address] [place] [address] Care Team Providers Care Director Executive Communications Name Role Phone None Reported, Pcp Primary Care Provider Unavail able Encounter Details Date Type Department Care Team (Latest Contact Info) Description 01/22/2024 12:54 PM CDT - 01/22/2024 11:59 PM CDT Hospital Encounter Department of Laboratory Medicine and Pathology, [facility] in [place], [place] [address] [place] [phone] Inés Gipson M.D. [address] [place] [phone] Hypothyroidism Primary Discharge Disposition: Home or Self [...] your living situation today? I have a [facility] place to live 01/31/2023 Sex [...] by mouth daily. blood sugar diagnostic strips ([employer] Ultra Test Strips) 1 test once as [...] CDT Office Visit Department of Dermatology in [place], [place] 200 [place] [address] Pepe Lobo M.D. [address] [place] [phone] 03/05/2024 7:15 AM CDT Appointment Department of Radiology, [facility], in [place], [place] [address] [place] [phone] Hung Botello M.D. [address] [place] [phone] 03/06/2024 8:15 AM CDT Appointment Department of Radiology, [facility] in [place], [place] [address] [place] [phone] Hung Botello M.D. [address] [place] [phone] 03/07/2024 8:00 AM CDT Appointment Department of Radiology, [facility], in [place], [place] [address] [place] [address] Hung Botello M.D. [address] [place] [phone] documented as of this encounter Procedures Procedure [...] CDT Inés Gipson M.D. LAB BLOOD ADD-ON [facility] [address] [place] [address], [place] DTL [facility] [address] [place] [address] documented in this encounter Visit Diagnoses Diagnosis Hypothyroidism Primary documented in this encounter Care Teams Director Executive Communications Relationship Specialty Start Date End Date None Reported, Pcp PCP - General Family Medicine 02/06/23 documented as of this encounter
--- OUTSIDE RECORDS SUMMARY | 2024-02-13 13:56 | XMS_ITS | Encounter Summary ---
Author Organization [facility] Address [address] [place] [address] Care Team Providers Care Grid Maker Name Role Phone None Reported, Pcp Primary Care Provider Unavail able Encounter Details Date Type Department Care Team (Latest Contact Info) Description 01/22/2024 Orders Only Division of Endocrinology in [place], [place] [address] [place] [phone] Inés Gipson M.D. [address] [place] [phone] Hypothyroidism Primary (Primary Dx) Social History Tobacco [...] CDT Office Visit Department of Dermatology in [place], [place] 200 [place] [address] Pepe Lobo M.D. 200 [place] [phone] 03/05/2024 7:15 AM CDT Appointment Department of Radiology, [facility], in [place], [place] [address] [place] [phone] Hung Botello M.D. [address] [place] [phone] 03/06/2024 8:15 AM CDT Appointment Department of Radiology, [facility], in [place], [place] [address] [place] [address] Hung Botello M.D. [address] [place] [phone] 03/07/2024 8:00 AM CDT Appointment Department of Radiology, [facility], [place], [place] [address] [place] [address] Hung Botello M.D. [address] [place] [phone] documented as of this encounter Results * S-TSH (Thyroid-Stimulating Hormone - Sensitive) (01/22/2024 1:05 PM CDT) Pathologist [facility] TSH, Sensitive 1.1 0.3 - 4.2 mIU/L 01/22/2024 2:23 PM CDT DTL Blood (Blood, Venous) 01/22/2024 1:05 PM CDT 01/22/2024 1:50 PM CDT Inés Gipson M.D. LAB BLOOD ADD-ON [facility] 200 [place] [address], [place] DTL [facility] 200 [place] [address] documented in this encounter Visit Diagnoses Diagnosis Hypothyroidism Primary- Primary documented in this encounter Care Teams Grid Maker Relationship Specialty Start Date End Date None Reported, Pcp PCP - General Family Medicine 02/06/23 documented as of this encounter
--- OUTSIDE RECORDS SUMMARY | 2024-02-13 13:57 | XMS_ITS | Clinical Summary ---
Author Organization [facility] Address [place], [place] [address] Care Team Providers Care Analytic Programmer Name Role Phone Alie Lizarraga MD Primary Care Provider + Allergies Active [...] Encounters Date Type Department Care Team Description 01/29/2024 8:00 AM CDT Ancillary Procedure [facility] [address] [place] [address] from Last 3 Months Immunizations Name Administration [...] 165 cm (5' 4.96) 06/23/2019 8:20 AM [facility] Body Mass Index 29.81 06/23/2019 8:20 AM [facility] [employer] [facility] Plan of Treatment Health Maintenance Due Date [...] Procedure Name Priority Date/Time Associated Diagnosis Comments ECHO TTE COMPLETE WO CONTRAST Routine 01/29/2024 8:34 AM CDT Mitral valve prolapse LIPID PANEL Routine 06/23/2019 9:20 AM [facility] [employer] [facility] Mixed hyperlipidemia XR MAMMO BILAT SCREENING Routine 01/16/2019 2:00 PM CDT Breast screening, unspecified from Last 3 Months or Most Recently Relevant to Health Maintenance Results * ECHO TTE COMPLETE WO CONTRAST (01/29/2024 8:34 AM CDT) AORTIC VALVE MEAN PG 5 mmHg EJECTION FRACTION 66 % LVEDD 4.2 cm Anatomical Region Laterality Modality Ultrasound 01/29/2024 8:07 AM CDT Narrative 01/29/2024 1:15 PM CDT ECHOCARDIOGRAM NATY CHAMPION ?Accession#: ?? [id number] : ?1955 68 years Study Date: ?? 01/29/2024 8:07:39 AM Gender: F ? BP: ? 145/58 mmHg Height: 165.00 cm ? BSA: ?1.88 m? ? ? Weight: 81.00 kg ?Tech: ? MJJ ?Referring MD: ALIE LIZARRAGA Site: ? [facility] Reading Location: MOBILE-OP Patient Location: Outpatient. Procedure: 2D, Color Doppler and Spectral Doppler. Indication for study: Mitral valve prolapse Cardiac Rhythm: Regular.Study quality: Fair. Final Impressions: 1. Normal left ventricular size, mildly increased wall thickness, normal global systolic function, calculated EF of 66 %. 2. Right ventricular cavity size is normal, global systolic RV function is normal. 3. Mild bileaflet mitral valve prolapse with trace mitral regurgitation. 4. Normal estimated RA pressure (3 mmHg). 5. No pericardial effusion. Comparison Compared to prior exam of 06/06/2017, there has been no significant change. Chamber Sizes and Function Normal left ventricular size, mildly increased wall thickness, normal global systolic function, calculated EF of 66 %. Left atrial size is normal. Right ventricular cavity size is normal, global systolic RV function is normal. RV wall thickness is normal. The right atrium is normal. Right atrial area is 11 cm? ? ?. The pulmonary artery is of normal size and origin. The sinus of Valsalva is normal sized. The ascending aorta is normal sized. Valves, RV Pressures and Diastolic Function The aortic valve is normal in structure and trileaflet, no stenosis and no regurgitation. The mitral valve is normal in structure, trace mitral regurgitation. Spectral Doppler shows Grade 1 pattern of LV diastolic filling. The tricuspid valve is normal in structure. Tricuspid regurgitation is trace regurgitation. The pulmonic valve is normal. Mild pulmonary regurgitation. Masses, Effusion, Shunts There is no pericardial effusion. The inferior vena cava is normal sized, respiratory size variation greater than 50%. No left to right shunting was detected by limited color flow Doppler interrogation of the interatrial septum. MEASUREMENTS AND CALCULATIONS 2-D Measurements and LV Function: LVID (d) 4.2 cm Planimetered EF 66 % LVID (s) 2.4 cm LV FS% (2D) ? 44 % IVS (d) ??1.2 cm LVOT diameter ?? 1.8 cm LVPW (d) 1.1 cm HR ?61 bpm Ao Sinus 3.3 cm LA Vol index ?27 ml/m2 Asc Ao ?? 3.5 cm RA area ? 11 cm? ? ? LA ? 2.9 cm Diastology: Mitral ?Tissue Doppler ?Pulmonary veins E Peak 0.7 m/s ??e', Septum ? 0.09 m/s Pulm s ?61.5 cm/s A Peak 0.8 m/s ??e', Lateral ?0.09 m/s Pulm d ?50.5 cm/s E/A ?0.8 ?E/e' Average ?? 7.73 ? Pulm s/d ratio ??1.22 DT ? 290 msec Aortic Valve: Vmax ? 1.5 m/s ??KIM (V) ?? 1.88 cm? ? ? VTI ?0.31 m ?? KIM (I) ?? 1.82 cm? ? ? LVOT V max 1.1 m/s ??Max PG ?9 mmHg LVOT VTI ?? 0.22 m ?? Mean PG ?? 5 mmHg SV ? 56 ml ?Dim Index 0.73 SV index ?? 30 ml/m? ? ? CO ?3.4 l/min ?CI ?1.8 l/min/m? ? ? Mitral Valve: MVA ? 2.6 cm? ? ? MV P 1/2 ??84 msec MV Mean G 1 mmHg MV VTI ?0.29 m Tricuspid Valve and estimated PA pressures: TAPSE 2.0 cm Pulmonic Valve: PIEDV 1.2 m/s . This study was interpreted by an [facility] accredited facility. CC: [facility] ([facility]. ??Final ?? Procedure Note Sagar Keita MD - 01/29/2024 ECHOCARDIOGRAM NATY CHAMPION : 1955 68 years Study Date: 01/29/2024 8:07:39 AM Gender: F BP: 145/58 mmHg Height: 165.00 cm BSA: 1.88 m? ? ? Weight: 81.00 kg Tech: [facility] Referring MD: ALIE LIZARRAGA Site: [facility] Reading Location: MOBILE-OP Patient Location: Outpatient. Procedure: 2D, Color Doppler and Spectral Doppler. Indication for study: Mitral valve prolapse Cardiac Rhythm: Regular.Study quality: Fair. Final Impressions: 1. Normal left ventricular size, mildly increased wall thickness, normalglobal systolic function, calculated EF of 66 %. 2. Right ventricular cavity size is normal, global systolic RV functionis normal. 3. Mild bileaflet mitral valve prolapse with trace mitralregurgitation. 4. Normal estimated RA pressure (3 mmHg). 5. No pericardial effusion. Comparison Compared to prior exam of 06/06/2017, there has been no significantchange. Chamber Sizes and Function Normal left ventricular size, mildly increased wall thickness, normalglobal systolic function, calculated EF of 66 %. Left atrial size isnormal. Right ventricular cavity size is normal, global systolic RVfunction is normal. RV wall thickness is normal. The right atrium isnormal. Right atrial area is 11 cm? ? ?. The pulmonary artery is of normalsize and origin. The sinus of Valsalva is normal sized. The ascendingaorta is normal sized. Valves, RV Pressures and Diastolic Function The aortic valve is normal in structure and trileaflet, no stenosis and noregurgitation. The mitral valve is normal in structure, trace mitralregurgitation. Spectral Doppler shows Grade 1 pattern of LV diastolicfilling. The tricuspid valve is normal in structure. Tricuspidregurgitation is trace regurgitation. The pulmonic valve is normal. Mildpulmonary regurgitation. Masses, Effusion, Shunts There is no pericardial effusion. The inferior vena cava is normal sized,respiratory size variation greater than 50%. No left to right shunting wasdetected by limited color flow Doppler interrogation of the interatrialseptum. MEASUREMENTS AND CALCULATIONS 2-D Measurements and LV Function: LVID (d) 4.2 cm Planimetered EF 66 % LVID (s) 2.4 cm LV FS% (2D) 44 % IVS (d) 1.2 cm LVOT diameter 1.8 cm LVPW (d) 1.1 cm HR 61 bpm Ao Sinus 3.3 cm LA Vol index 27 ml/m2 Asc Ao 3.5 cm RA area 11 cm? ? ? LA 2.9 cm Diastology: Mitral Tissue Doppler Pulmonary veins E Peak 0.7 m/s e', Septum 0.09 m/s Pulm s 61.5 cm/s A Peak 0.8 m/s e', Lateral 0.09 m/s Pulm d 50.5 cm/s E/A 0.8 E/e' Average 7.73 Pulm s/d ratio 1.22 DT 290 msec Aortic Valve: Vmax 1.5 m/s KIM (V) 1.88 cm? ? ? VTI 0.31 m KIM (I) 1.82 cm? ? ? LVOT V max 1.1 m/s Max PG 9 mmHg LVOT VTI 0.22 m Mean PG 5 mmHg SV 56 ml Dim Index 0.73 SV index 30 ml/m? ? ? CO 3.4 l/min CI 1.8 l/min/m? ? ? Mitral Valve: MVA 2.6 cm? ? ? MV P 1/2 84 msec MV Mean G 1 mmHg MV VTI 0.29 m Tricuspid Valve and estimated PA pressures: TAPSE 2.0 cm Pulmonic Valve: PIEDV 1.2 m/s . This study was interpreted by an [facility] accredited facility. CC: [facility] (med records) [facility]. Final Alie Lizarraga MD ECHO ORD * (ABNORMAL) LIPID PANEL (06/23/2019 9:20 AM [facility] [employer] [facility]) CHOLESTEROL,TOTAL 182 100 - 199 mg/dL 06/23/2019 10:01 AM [facility] TRIGLYCERIDES 294(H) <150 mg/dL 06/23/2019 10:01 AM [facility] HDL CHOLESTEROL 48 >40 mg/dL 9 10:01 AM [facility] NON-HDL CHOLESTEROL 134 <145 mg/dl 06/23/2019 10:01 AM [facility] CHOL/HDL RATIO 3.79 <4.50 06/23/2019 10:01 AM [facility] LDL CHOLESTEROL 75 <=130 mg/dL 06/23/2019 10:01 AM [facility] [employer] [facility] PROVIDER ORDERED STATUS RANDOM 06/23/2019 10:01 AM [facility] Blood BLOOD SPECIMEN / Unknown Butterfly / Unknown 06/23/2019 9:20 AM [facility] [employer] 06/23/2019 9:20 AM [facility] [employer] Sydney Lakhani NP CHEMISTRY [facility] [address] [place] [address] * XR MAMMO BILAT SCREENING (01/16/2019 2:00 PM CDT) Anatomical Region Laterality Modality BREASTS, Breast Left, Breast Right Bilateral Mammography Impressions 01/19/2019 6:53 AM CDT ??There is no radiographic evidence for malignancy. ??Recommend annual mammograms. A lay language report of this examination will be provided to the patient. MAMMOGRAM ASSESSMENT: ??ACR 2 Benign Narrative 01/19/2019 6:53 AM CDT XR MAMMO BILAT SCREENING [[id number]] CLINICAL HISTORY: ??This is an asymptomatic 63 [...] Recently Relevant to Health Maintenance Care Teams Analytic Programmer Relationship Specialty Start Date End Date Alie Lizarraga MD [address] [place] [address] PCP - General Family Practice 10/30/23
--- OUTSIDE RECORDS SUMMARY | 2024-02-13 13:57 | XMS_ITS | Encounter Summary ---
Author Organization [facility] Address [address] [place] [address] Care Team Providers Care Quill Worker Name Role Phone None Reported, Pcp Primary Care Provider Unavail able Encounter Details Date Type Department Care Team (Latest Contact Info) Description 12/19/2023 8:39 AM CDT - 12/19/2023 11:59 PM CDT Hospital Encounter Department of Laboratory Medicine in [address] [phone] Iván Sky M.D. [address] [place] [address] Constipation; Diabetes Mellitus Type 2 With Diabetic [...] your living situation today? I have a [facility] place to live 01/31/2023 Sex [...] by mouth daily. blood sugar diagnostic strips ([employer] Ultra Test Strips) 1 test once as [...] CDT Office Visit Department of Dermatology in [address] [phone] Pepe Lobo M.D. [address] [place] [phone] 03/05/2024 7:15 AM CDT Appointment Department of Radiology, [place], [place] [address] [place] [phone] Hung Botello M.D. [address] [place] [phone] 03/06/2024 8:15 AM CDT Appointment Department of Radiology, [place], [place] [address] [place] [phone] Hung Botello M.D. [address] [place] [phone] 03/07/2024 8:00 AM CDT Appointment Department of Radiology, [facility], [place], [place] [address] [place] [phone] Hung Botello M.D. [address] [place] [phone] documented as of this encounter Procedures Procedure [...] Saleh M.D. LAB BLOOD NON A DD-ON [facility] [address] [place] [address], [facility] [place] [address] [place] [address] * (ABNORMAL) Creatinine with Estimated GFR (12/19/2023 8:48 AM CDT) Creatinine 1.13(H) 0.59 - 1.04 mg/dL 12/19/2023 1:31 PM CDT [facility] Estimated GFR (eGFR) 53(L) >=60 mL/min/BSA 12/19/2023 1:31 PM CDT [facility] Comment: Estimated GFR calculated using the 2020 CKD_EPI creatinine equation. Blood (Blood, Venous) 12/19/2023 8:48 AM CDT 12/19/2023 12:57 PM CDT Iván Saleh M.D. LAB BLOOD ADD-O N Performing Organization Address City/[facility]/ZIP Co de Phone Number [facility] [address] [place] [address], [facility] in [place] [address] [place] [address] * (ABNORMAL) Hemoglobin A1c (12/19/2023 8:48 AM CDT) Hemoglobin A1c, B 5.8(H) 4.2 - 5.6 % 12/19/2023 1:37 PM CDT [facility] Comment: Hemoglobin A1c values of 5.7-6.4 percent indicate an increased risk for developing diabetes mellitus. In diabetic patients, HbA1c goals should be discussed with healthcare provider. Blood (Blood, Venous) 12/19/2023 8:48 AM CDT 12/19/2023 12:57 PM CDT Iván Saleh M.D. LAB BLOOD ADD-O N Performing Organization Address City/[facility]/ZIP Co de Phone Number [facility] [address] [place] [address], [facility] in [place] [address] [place] [address] documented in this encounter Visit Diagnoses Diagnosis Constipation Diabetes Mellitus Type 2 With Diabetic Neuropathy (HCC) documented in this encounter Care Teams Quill Worker Relationship Specialty Start Date End Date None Reported, Pcp PCP - General Family Medicine 02/06/23 documented as of this encounter
--- OUTSIDE RECORDS SUMMARY | 2024-02-13 13:57 | XMS_ITS | Encounter Summary ---
Author Organization [facility] Address [address] [place] [address] Care Team Providers Care Door To Door Sales Representative Name Role Phone None Reported, Pcp Primary [...] Date Recorded Employment status Working with temporary [employer] 01/31/2023 Housing Stability Answer Date Recorded What is your living situation today? I have a [facility] place to live 01/31/2023 Sex and [...] CDT Office Visit Department of Dermatology in [place], [place] [address] [place] [address] Pepe Lobo M.D. 200 [place] [address] 03/05/2024 7:15 AM CDT Appointment Department of Radiology, [facility], in [place], [place] [address] [place] [address] Hung Botello M.D. 200 [place] [phone] 03/06/2024 8:15 AM CDT Appointment Department of Radiology, [facility], in [place], [place] [address] [place] [address] Hung Botello M.D. [address] [place] [address] 03/07/2024 8:00 AM CDT Appointment Department of Radiology, [facility], in [place], [place] [address] [place] [address] Hung Botello M.D. [address] [place] [address] documented as of this encounter Procedures Procedure [...] on filedocumented in this encounter Care Teams Door To Door Sales Representative Relationship Specialty Start Date End Date None Reported, Pcp PCP - General Family Medicine 02/06/23 documented as of this encounter
--- OUTSIDE RECORDS SUMMARY | 2024-02-13 13:57 | XMS_ITS | Encounter Summary ---
Author Organization [facility] Address [address] [place] [address] Care Team Providers Care Melt House Drag Operator Name Role Phone None Reported, Pcp [...] Date Recorded Employment status Working with temporary [employer] 01/31/2023 Housing Stability Answer Date Recorded What is your living situation today? I have a [facility] place to live 01/31/2023 Sex and [...] CDT Office Visit Department of Dermatology in [place], [place] [address] [place] [address] Pepe Lobo M.D. 200 [place] [address] 03/05/2024 7:15 AM CDT Appointment Department of Radiology, [facility], in [place], [place] [address] [place] [address] Hung Botello M.D. 200 [place] [phone] 03/06/2024 8:15 AM CDT Appointment Department of Radiology, [facility], in [place], [place] [address] [place] [address] Hung Botello M.D. [address] [place] [address] 03/07/2024 8:00 AM CDT Appointment Department of Radiology, [facility], in [place], [place] [address] [place] [address] Hung Botello M.D. [address] [place] [address] documented as of this encounter Procedures Procedure [...] on filedocumented in this encounter Care Teams Melt House Drag Operator Relationship Specialty Start Date End Date None Reported, Pcp PCP - General Family Medicine 02/06/23 documented as of this encounter
--- OUTSIDE RECORDS SUMMARY | 2024-02-13 13:57 | XMS_ITS | Encounter Summary ---
Author Organization [facility] Address [address] [place] [address] Care Team Providers Care Ham Curer Name Role Phone None Reported, Pcp Primary Care Provider Unavail able Reason for Referral * Outpatient (Routine) - Closed Specialty Diagnoses / Procedures Referred By Myriam wise Referred To Contact Diagnoses Constipation Procedures DX Abdomen 1 View Hung Botello M.D. [address] [place] [phone] [facility] Referral ID Status Reason Start Date Expiration Date Visits Re quested Visits Authorized [id number] Closed 09/27/2023 09/26/2024 1 1 Reason for Visit * Outpatient (Routine) - Closed Specialty Diagnoses / Procedures Referred By Myriam wise Referred To Contact Diagnoses Constipation Procedures DX Abdomen 1 View Hung Botello M.D. [address] [place] [phone] [facility] Referral ID Status Reason Start Date Expiration Date Visits Re quested Visits Authorized [id number] Closed 09/27/2023 09/26/2024 1 1 Encounter Details Date Type Department Care Team (Latest Contact Info) Description 12/12/2023 11:57 AM CDT - 12/12/2023 11:59 PM CDT Hospital Encounter Department of Radiology, [facility] in [place], [place] [address] [place] [phone] Hung Botello M.D. [address] [place] [phone] Constipation Discharge Disposition: Home or Self Care [...] your living situation today? I have a [facility] place to live 01/31/2023 Sex [...] by mouth daily. blood sugar diagnostic strips (kompany Ultra Test Strips) 1 test once as [...] CDT Office Visit Department of Dermatology in [place], [place] 200 [place] [address] Pepe Lobo M.D. 200 [place] [address] 03/05/2024 7:15 AM CDT Appointment Department of Radiology, [facility], in [place], [place] [address] [place] [address] Hung Botello M.D. [address] [place] [phone] 03/06/2024 8:15 AM CDT Appointment Department of Radiology, [facility], in [place], [place] [address] [place] [address] Hung Botello M.D. [address] [place] [phone] 03/07/2024 8:00 AM CDT Appointment Department of Radiology, [place], [place] [address] [place] [address] Hung Botello M.D. [address] [place] [phone] documented as of this encounter Procedures Procedure [...] Constipation documented in this encounter Care Teams Ham Curer Relationship Specialty Start Date End Date None Reported, Pcp PCP - General Family Medicine 02/06/23 documented as of this encounter
--- OUTSIDE RECORDS SUMMARY | 2024-02-13 13:57 | XMS_ITS | Encounter Summary ---
Author Organization [facility] Address [address] [place] [address] Care Team Providers Care Utility Lineman Name Role Phone None Reported, Pcp Primary Care Provider Unavail able Reason for Referral * Outpatient (Routine) - Authorized Specialty Diagnoses / Procedures Referred By Myriam t Referred To Contact Diagnoses Scar Procedures PETERSON Laser - Vbeam/pulse dye Augusta Peña M.D. [facility] Referral ID Status Reason Start Date Expiration Date V isits Requested Visits Authorized [id number] Authorized 12/05/2023 12/04/2024 1 1 * Outpatient (Routine) - Closed Specialty Diagnoses / Procedures Referred By Contac t Referred To Contact Dermatology Augusta Peña M.D. [facility] Referral ID Status Reason Start Date Expiration Date Visits Re quested Visits Authorized [id number] Closed 12/05/2023 06/05/2025 1 1 Scheduling Instructions Must be in afternoon following other appointments. Reason for Visit * Outpatient (Routine) - Closed Specialty Diagnoses / Procedures Referred By Contac t Referred To Contact Diagnoses Scar Procedures PETERSON Excision 1-2 sites Pepe Lobo M.D. 200 [place] [address] [facility] Referral ID Status Reason Start Date Expiration Date Visits Re quested Visits Authorized [id number] Closed 10/10/2023 10/09/2024 1 1 Encounter Details Date Type Department Care Team (Latest Contact Info) Description 12/05/2023 2:00 PM CDT Procedure visit Department of Dermatology in [place], [place] 200 [place] [address] Pepe Lobo M.D. [address] [place] [address] Scar (Primary Dx); Pain Cutaneous; Cicatricial Ectropion [...] of Surgery: 12/05/2023 Surgeon: Pepe Lobo M.D. Gray Tender: Augusta Peña M.D. Location: [facility] Floor:16 Room:[facility] Visit Type: Outpatient PreOp Diagnosis: Hypertrophic [...] CDT Office Visit Department of Dermatology in [place], [place] [address] [place] [address] Pepe Lobo M.D. [address] [place] [address] 03/05/2024 7:15 AM CDT Appointment Department of Radiology, [place], [place] [address] [place] [address] Hung Botello M.D. [address] [place] [phone] 03/06/2024 8:15 AM CDT Appointment Department of Radiology, [place], [place] [address] [place] [address] Hung Botello M.D. [address] [place] [phone] 03/07/2024 8:00 AM CDT Appointment Department of Radiology, [facility] in [place], [place] [address] [place] [address] Hung Botello M.D. [address] [place] [phone] Scheduled Orders Name Type Priority Associated Diagnoses [...] of Surgery: 12/05/2023 Surgeon: Pepe Lobo M.D. Gray Tender: Augusta Peña M.D. Location: [place] ?? Bldg:GO ?? Floor:16 ?? Room:[facility] Visit Type: Outpatient PreOp Diagnosis: ??Hypertrophic [...] 10 days Pepe Lobo M.D. DERM PROCEDURE VARUNFrancie AUDRATINO documented in this encounter Visit Diagnoses Diagnosis [...] mL documented in this encounter Care Teams Utility Lineman Relationship Specialty Start Date End Date None Reported, Pcp PCP - General Family Medicine 02/06/23 documented as of this encounter
--- OUTSIDE RECORDS SUMMARY | 2024-02-13 13:57 | XMS_ITS | Encounter Summary ---
Author Organization [facility] Address [address] [place] [address] Care Team Providers Care Long Chain Dyeing Machine Operator Name Role Phone None Reported, Pcp Primary Care Provider Unavail able Reason for Referral * Outpatient (Routine) - Closed Specialty Diagnoses / Procedures Referred By Contac t Referred To Contact Endocrinology Diagnoses Constipation Diabetes Mellitus Type 2 With Diabetic Neuropathy (HCC) Iván Sky M.D. 200 [place] [address] [facility] Referral ID Status Reason Start Date Expiration Date Visits Re quested Visits Authorized [id number] Closed 12/12/2023 06/12/2025 1 1 Reason for [...] Expiration Date Visits Re quested Visits Authorized [id number] Closed 09/27/2023 09/26/2024 1 1 Encounter Details Date Type Department Care Team (Latest Contact Info) Description 12/12/2023 1:10 PM CDT Comprehensive Visit Division of Gastroenterology in [place], [place] [address] [place] [phone] Hung Botello M.D. [address] [place] [phone] Iván Sky M.D. 200 [place] [address] Diabetes Mellitus Type 2 With Diabetic Neuropathy [...] an upper endoscopy and colonoscopy outside of [place] about a year ago. There is no [...] of either small unformed or watery stools ([place] 5-7) or large unformed stools ([place] 6) with drastic increase in abdominal pain [...] CDT Office Visit Department of Dermatology in [place], [place] [address] [place] [address] Pepe Lobo M.D. [address] [place] [phone] 03/05/2024 7:15 AM CDT Appointment Department of Radiology, [place], [place] [address] [place] [address] Hung Botello M.D. [address] [place] [phone] 03/06/2024 8:15 AM CDT Appointment Department of Radiology, [place], [place] [address] [place] [phone] Hung Botello M.D. [address] [place] [phone] 03/07/2024 8:00 AM CDT Appointment Department of Radiology, [facility], in [place], [place] [address] [place] [address] Hung Botello M.D. [address] [place] [phone] Scheduled Referrals Name Type Priority Associated Diagnoses [...] BLOOD NON A DD-ON Performing Organization Address [facility]/ZIP Co de Phone Number [facility] [address] [place] [address], [place] [facility] in [place] [address] [place] [address] * (ABNORMAL) Creatinine with Estimated GFR (12/19/2023 8:48 AM CDT) Creatinine 1.13(H) 0.59 - 1.04 mg/dL 12/19/2023 1:31 PM CDT [facility] Estimated GFR (eGFR) 53(L) >=60 mL/min/BSA 12/19/2023 1:31 PM CDT [facility] Comment: Estimated GFR calculated using the 2020 CKD_EPI creatinine equation. Blood (Blood, Venous) 12/19/2023 8:48 AM CDT 12/19/2023 12:57 PM CDT Iván Saleh M.D. LAB BLOOD ADD-O N Performing Organization Address [facility]/ZIP Co de Phone Number [facility] [address] [place] [address], [place] [facility] [place] [address] [place] [address] * (ABNORMAL) Hemoglobin A1c (12/19/2023 8:48 AM [...] BLOOD ADD-O N Performing Organization Address City/[facility]/ZIP Co de Phone Number [facility] [address] [place] [address], [facility] [place] [address] [place] [address] documented in this encounter Visit Diagnoses Diagnosis Diabetes Mellitus Type 2 With Diabetic Neuropathy (HCC)- Primary Constipation Pain Abdominal Chronic documented in this encounter Care Teams Long Chain Dyeing Machine Operator Relationship Specialty Start Date End Date None Reported, Pcp PCP - General Family Medicine 02/06/23 documented as of this encounter
--- OUTSIDE RECORDS SUMMARY | 2024-02-13 13:57 | XMS_ITS | Encounter Summary ---
Author Organization [facility] Address [address] [place] [address] Care Team Providers Care Maintenance Pipefitter Name Role Phone None Reported, Pcp Primary Care Provider Unavail able Reason for Visit * Reason Onset Date Comments Pre-visit Intake 12/11/2023 Encounter Details Date Type Department Care Team (Latest Contact Info) Description 12/11/2023 7:00 AM CDT Clinical Communication Virtual Review in [place], [place] 200 [place] [address] Pre-visit Intake Social History Tobacco Use Types [...] your living situation today? I have a [facility] place to live 01/31/2023 Sex and [...] CDT Office Visit Department of Dermatology in [place], [place] 200 [place] [address] Pepe Lobo M.D. 200 [place] [address] 03/05/2024 7:15 AM CDT Appointment Department of Radiology, [facility], in [place], [place] [address] [place] [address] Hung Botello M.D. [address] [place] [phone] 03/06/2024 8:15 AM CDT Appointment Department of Radiology, [facility] in [place], [place] [address] [place] [address] Hung Botello M.D. [address] [place] [phone] 03/07/2024 8:00 AM CDT Appointment Department of Radiology, [facility], in [place], [place] [address] [place] [address] Hung Botello M.D. [address] [place] [phone] documented as of this encounter Visit Diagnoses Not on filedocumented in this encounter Care Teams Maintenance Pipefitter Relationship Specialty Start Date End Date None Reported, Pcp PCP - General Family Medicine 02/06/23 documented as of this encounter
--- OUTSIDE RECORDS SUMMARY | 2024-02-13 13:57 | XMS_ITS | Encounter Summary ---
Author Organization [facility] Address [address] [place] [address] Care Team Providers Care Museum Educator Name Role Phone None Reported, Pcp Primary Care Provider Unavail able Reason for Visit * Outpatient (Routine) - Closed Specialty Diagnoses / Procedures Referred By Myriam wise Referred To Contact Dermatology Augusta Peña M.D. [facility] Referral ID Status Reason Start Date Expiration Date Visits Re quested Visits Authorized [id number] Closed 12/05/2023 06/05/2025 1 1 Encounter Details Date Type Department Care Team (Late st Contact Info) Description 12/12/2023 3:00 PM CDT Nurse Only Department of Dermatology in [place], [place] [address] [place] [phone] Augusta Peña M.D. Kg Cabral, R.N. [address] [place] [phone] Discharge Disposition: Home or Self Care Social [...] Date Recorded Employment status Working with temporary [employer] 01/31/2023 Housing Stability Answer Date Recorded What is your living situation today? I have a [facility] place to live 01/31/2023 Sex and Gender Information Value Date Recorded Sex Assigned at Female 10/06/2023 10:05 AM CDT Gender Identity Female 10/06/2023 10:05 AM CDT Sexual Orientation Straight 10/06/2023 10 :05 AM CDT documented as of this encounter Procedure Notes * Kg Cabral, RAlokN. - 12/12/2023 3:00 PM CDT Patient returns for suture removal. Status post scar excision done on December 05, [address] Dwight Lobo([id number]) to right cheek for hypertrophic scar . Verbal consent for procedure obtained from patient and spouse. Patient discussed and seen with supervising franchise business consultant Supervising Physician: Dr. Dwight Lobo ([id number]). Final Pause: A final pause occurred just [...] CDT Office Visit Department of Dermatology in [place], [place] [address] [place] [phone] Pepe Lobo M.D. [address] [place] [phone] 03/05/2024 7:15 AM CDT Appointment Department of Radiology, [facility], in [place], [place] [address] [place] [address] Hung Botello M.D. [address] [place] [phone] 03/06/2024 8:15 AM CDT Appointment Department of Radiology, [facility], in [place], [place] [address] [place] [address] Hung Botello M.D. [address] [place] [phone] 03/07/2024 8:00 AM CDT Appointment Department of Radiology, [facility], in [place], [place] [address] [place] [address] Hung Botello M.D. [address] [place] [phone] documented as of this encounter Visit Diagnoses Not on filedocumented in this encounter Care Teams Museum Educator Relationship Specialty Start Date End Date None Reported, Pcp PCP - General Family Medicine 02/06/23 documented as of this encounter
--- NOTE | 2024-02-13 14:00 | CRLHL7_ITS ---
For Patients: As a result of the Century Cures Act, medical imaging exams and procedure reports are released immediately into your electronic medical record. You may view this report before your referring provider. If you have questions, please contact your health care provider. DXA BONE MINERAL DENSITY STUDY Reason for exam: Postmenopausal screen. Current height (in): 64.5. Weight (lb): 180. Menopause age: 34. Ethnicity: White. 1. Have you had a previous hip or vertebral fracture? No. 2. Have you had any fractures during your adult life which did not result from significant trauma (e.g., auto accident)? No. 3. Did either of your parents have a hip fracture? No. 4. Do you smoke? No. 5. Have you ever taken Glucocorticoids? No. 6. Do you have rheumatoid arthritis? Yes. 7. Do you have secondary osteoporosis? No. 8. Do you drink 3 or more alcoholic drinks per day? No. 9. Are you being treated for osteoporosis? No. 10. Have you ever taken any of the following medications: Actonel, Evista, Fosamax, Miacalcin, Reclast, Boniva, Forteo, HRT (i.e., estrogen/hormone therapy), Protelos, Prolia, Vitamin D, Calcium, other ??? please specify. ANSWER: Yes, HRT (i.e., estrogen/hormone therapy) 11. Do you have any of the following medical conditions: Anorexia or bulimia, asthma or emphysema, end stage renal disease, hyperparathyroidism, any seizure disorders, cancer, inflammatory bowel diseases, hysterectomy, other ??? please specify. ANSWER: Yes, cancer, hysterectomy. 12. What was your maximum height (inches)? 66. 13. Do you perform weight bearing exercise regularly? No. 14. Do you regularly consume dairy products? Yes. 15. Do you drink caffeinated beverages? Yes. 16. At what age did your period start? 12. 17. Are you premenopausal? No. 18. How many full-term pregnancies have you had? 1. 19. Have you ever missed your period for more than 6 months in a row (not including or menopause)? No. TECHNIQUE: Bone mineral density study was performed using the [employer]. FINDINGS: The results of the study expressed as bone mineral density (BMD) are as follows: Lumbar spine L1, L2, L4: BMD: 1.185 g/cm2. T-score: 1.4. Z-score: 3.4 Neck Left: BMD: 0.683 g/cm2. T-score: -1.5. Z-score: 0.3 Right: BMD: 0.676 g/cm2. T-score: -1.6. Z-score: 0.2 Total Left: BMD: 0.863 g/cm2. T-score: -0.6. Z-score: 0.8 Right: BMD: 0.829 g/cm2. T-score: -0.9. Z-score: 0.5 IMPRESSION: Osteopenia. *Comparison exams done prior to 12/2019 were performed on different unit, [employer]. COMPARISON: Compared with scan of 09/01/2020, the bone mineral density has decreased by 2.0 percent at the spine and decreased by 1.8 percent at the hip. FRAX 10-year Fracture Risk Major Osteoporotic Fracture: 12% Hip Fracture: 1.8% Reported Risk Factors: [place] () Neck BMD=0.676, BMI=30.4, rheumatoid arthritis. Ashu Patrick M.D. Diagnostic Radiologist [email or web address] GAURANG/keo crowley/Dictated by: Ashu Patrick MD @ 02/14/2024 9:19:00 AM (Electronically Signed)
== END 2024-02-13 13:54 | disposition home or self-care (01) ==
LOC: RAD 13:53
PROVIDERS: PCP Family Medicine; Visit Provider Family Medicine
DX: Z78.0 Asymptomatic menopausal state (principal); M85.89 Other specified disorders of bone density and structure, multiple sites
CPT/HCPCS: 77080

== ENCOUNTER 2024-03-17 15:42 | Outpatient (CLI) | payer OTHER, SELFPAY ==
--- NOTE | 2024-03-17 15:40 | CRLHL7_ITS ---
For Patients: As a result of the Century Cures Act, medical imaging exams and procedure reports are released immediately into your electronic medical record. You may view this report before your referring provider. If you have questions, please contact your health care provider. BILATERAL SCREENING MAMMOGRAM WITH COMPUTER-AIDED DETECTION AND TOMOSYNTHESIS TECHNIQUE: CC and MLO views were obtained. These mammographic images have been obtained using full-field digital technique. These mammographic images were interpreted with the benefit of computer-aided detection. Breast tomosynthesis was used in this interpretation. COMPARISON FILM: 12/18/22, 01/12/22, 09/07/20. FINDINGS: There are scattered areas of fibroglandular density. IMPRESSION: There is no radiographic evidence for malignancy. ASSESSMENT: BI-RADS Category 1: Negative RECOMMENDATION: Routine screening mammogram in 1 year. A lay language report of this examination will be provided to the patient. ASHU AN M.D. Diagnostic Radiologist [email or web address] Transcribed: 3:[address]/Dictated by: Ashu An MD @ 03/18/2024 11:32:00 AM (Electronically Signed)
--- OUTSIDE RECORDS SUMMARY | 2024-03-17 15:47 | XMS_ITS | Clinical Summary ---
Author Organization [facility] Address [address] [place] [address] Care Team Providers Care Woods Manager Name Role Phone None Reported, Pcp Primary Care Provider Unavail able Source Comments Patient records contain information from all sites at [facility]. For routine questions regarding patient records, call [phone] during business hours, M-F 8:00 AM - 5:00 PM Central Time. Record requests for emergency care only can be directed to [phone] at any time.[facility] Allergies Active Allergy Reactions Criticality Noted [...] mg by mouth at bedtime. 11/11/2019 Active sennosides-docusate sodium (SENOKOT-S) 8.6-50 mg per tablet [...] a day. Active blood sugar diagnostic strips (SnapSenseTouch Ultra Test Strips) 1 test once as [...] mouth 2 (two) times a day. 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 Currently tolerating crestor. Mitral Valve Prolapse 02/06/2023 Other Specified Anxiety Disorders 02/06/2023 Overview (02/06/2023): Has tried and failed Paxil, Prozac, Effexor. Pristiq helped the best but not covered by insurance. Currently on celexa with alprazolam as needed. Anemia 05/05/2018 Dizziness 05/05/2018 Overview (02/06/2023): Added automatically from request for surgery [id number] Sinusitis Chronic 05/05/2018 Tendinitis Bicipital Left 10/22/2017 Pain Shoulder Left 09/20/2017 Spinal Stenosis Lumbar Regio n Without Neurogenic Claudication 06/02/2017 Overview (02/06/2023): Takes meloxicam as needed. Occasionally requires toradol but uses very sparingly. Asthma Mild Intermittent 05/24/2017 Overview (02/06/2023): Related to h/o [place] Fever Stroke 07/29/1998 Overview (02/06/2023): Lacunar in 1998, with several TIAs since. Lupus Systemic Erythematosus 07/29/1995 Overview (02/06/2023): Affects her GI system usually. Occasionally has facial rash. Has not established with Rheumatology locally. Encounters Date Type Department Care Team Description 01/23/2024 Documentation Division of Gastroenterology in [address] [phone] Iván Sky M.D. 01/22/2024 12:54 PM CDT - 01/22/2024 11:59 PM CDT Hospital Encounter Department of Laboratory Medicine and Pathology, [facility] in [address] [phone] Inés Gipson M.D. Hypothyroidism Primary Discharge Disposition: Home or Self Care 01/22/2024 11:35 AM CDT - 01/22/2024 12:53 PM CDT Hospital Encounter Division of Gastroenterology in [address] [phone] Hung Botello M.D. Incontinence Fecal; Constipation Discharge Disposition: Home or Self Care 01/22/2024 11:00 AM CDT Clinical Support Enema Prep Facility in [address] [phone] Hung Botello M.D. Peterson, Emily L, R.N. Incontinence Fecal; Constipation 01/22/2024 8:30 AM CDT Comprehensive Visit Division of Endocrinology in [address] [phone] Iván Sky M.D. Ayari, Lena, M.D. Constipation; Diabetes Mellitus Type 2 With Diabetic Neuropathy (HCC) 01/22/2024 Orders Only Division of Endocrinology in [place], [place] [address] [place] [address] Inés Gipson M.D. Hypothyroidism Primary (Primary Dx) 12/19/2023 8:39 AM CDT - 12/19/2023 11:59 PM CDT Hospital Encounter Department of Laboratory Medicine in [place], [place] [address] [place] [address] Iván Sky M.D. Constipation; Diabetes Mellitus Type 2 With Diabetic Neuropathy (HCC) Discharge Disposition: Home or Self Care from Last 3 Months Social History Tobacco [...] Date Recorded Employment status Working with temporary [employer] 01/31/2023 Housing Stability Answer Date Recorded What is your living situation today? I have a [facility] place to live 01/31/2023 Sex [...] 01/22/2024 8:35 AM CDT Plan of Treatment Health Maintenance Due Date [...] 04/11/2020, Additional history exists Hemoglobin A1C 06/20/2024 12/19/2023, 05/30, 12/11/2018, Additional history exists Lipid (Cholesterol) Screening 06/23/2024, 12/11/2018, 08/22/2018, Additional [...] Mellitus Type 2 With Diabetic Neuropathy (HCC) COMPREHENSIVE METABOLIC PANEL, S/P Routine 02/18/2023 12:37 PM CDT Wound Infection Initial (HCC) from Last 3 Months or Most Recently Relevant to Health Maintenance Results * Anorectal Manometry (01/22/2024 5:13 PM CDT) Hung Botello M.D. GI PROCEDURE ORDERAB LES Performing Organization Address City/State/[facility] Co de Phone Number MMODAL NA * S-TSH (Thyroid-Stimulating Hormone - Sensitive) (01/22/2024 1:05 PM CDT) TSH, Sensitive 1.1 0.3 - 4.2 mIU/L 01/22/2024 2:23 PM CDT DTL Blood (Blood, Venous) 01/22/2024 1:05 PM CDT 01/22/2024 1:50 PM CDT Inés Gipson M.D. LAB BLOOD ADD-ON Performing Organization Address City/State/[facility] Co de Phone Number ED [facility] [address] [place] [address], [place] DTL [facility] [address] [place] [address] * (ABNORMAL) Hemoglobin A1c (12/19/2023 8:48 AM [...] LAB BLOOD ADD-O N Performing Organization Address [facility] Co de Phone Number [facility] [address] [place] [address], [place] OWAT [facility] in [place] [address] [place] [address] * Glucose, Fasting (12/19/2023 8:48 AM CDT) Glucose, P 88 70 - 100 mg/dL 12/19/2023 1:12 PM CDT OWAT Last Intake 11 hr 12/19/2023 12:50 PM CDT OWAT Blood (Blood, Venous) 12/19/2023 8:48 AM CDT 12/19/2023 12:50 PM CDT Iván Saleh M.D. LAB BLOOD NON A DD-ON Performing Organization Address City/[facility]/ZIP Co de Phone Number [facility] [address] [place] [address], [place] [facility] in [place] [address] [place] [address] * (ABNORMAL) Creatinine with Estimated GFR (12/19/2023 8:48 AM CDT) Creatinine 1.13(H) 0.59 - 1.04 mg/dL 12/19/2023 1:31 PM CDT OWAT Estimated GFR (eGFR) 53(L) >=60 mL/min/BSA 12/19/2023 1:31 PM CDT OWAT Comment: Estimated GFR calculated using the 2020 CKD_EPI creatinine equation. Blood (Blood, Venous) 12/19/2023 8:48 AM CDT 12/19/2023 12:57 PM CDT Iván Saleh M.D. LAB BLOOD ADD-O N [facility] [address] [place] [address], [facility] OWAT [facility] in [place] [address], [place] [address] * (ABNORMAL) Comprehensive Metabolic Panel (02/18/2023 12:37 [...] CDT Pepe Lobo M.D. LAB BLOOD ADD-ON [facility] [address] [place] [address], [place] [facility] [address] [place] [address] from Last 3 Months or Most Recently Relevant to Health Maintenance Care Teams Woods Manager Relationship Specialty Start Date End Date None Reported, Pcp PCP - General Family Medicine 02/06/23
--- OUTSIDE RECORDS SUMMARY | 2024-03-17 15:47 | XMS_ITS ---
Author Organization [facility] Address [address] [place] [address] Care Team Providers Care Clerical And Office Support Workers Name Role Phone Unavailable Unavailable Unavailable Surgery Details Not on file Complications Check Surgery Details section. Procedure Estimated Blood Loss Check Surgery Details section. Procedure Findings Check Surgery Details section. Procedure Specimens Taken Check Surgery Details section.
--- OUTSIDE RECORDS SUMMARY | 2024-03-17 15:47 | XMS_ITS | Encounter Summary ---
Author Organization [facility] Address [address] [place] [address] Care Team Providers Care Flame Hardener Name Role Phone No Ref-Primary, Physician Primary Care Provider Reason for Visit * Reason Onset Date Comments Appointment 12/03/2018 Tilt Table Test Encounter Details Date Type Department Care Team (Late st Contact Info) Description 12/03/2018 Telephone [facility] [address] [address] Adult, Cardiology General Appointment (Tilt [...] it was cancelled. Naomi Razo Periop Electrophysiology Trash Collector Supervisor [phone] * Telephone Encounter - Augusta Asher - 01/02/2019 11:53 AM CDT [facility] Phone Message May a detailed message be left on voicemail: yes Reason for Call: CANCELLATION - pt has been in hospital since December 19 and she would like to put these appointment on hold until he is out of the hospital, please call patient with further questions Action Taken: Message routed to: [facility] ([facility]): CARDIO * Telephone Encounter - Mayra Rosen [...] if possible. Action Taken: Message routed to: [facility] ([facility]): Cardiology documented in this encounter Plan of Treatment Not on file documented as of this encounter Visit Diagnoses Not on filedocumented in this encounter Care Teams Flame Hardener Relationship Specialty Start Date End Date No Ref-Primary, Physician PCP - General 12/09/18 documented as of this encounter
--- OUTSIDE RECORDS SUMMARY | 2024-03-17 15:47 | XMS_ITS | Referral Summary ---
Author Organization [facility] Address [address] [place] [address] Care Team Providers Care Audio Visual Design Engineer Name Role Phone No Ref-Primary, Physician Primary [...] Overview: Added automatically from request for surgery [id number] Social History Tobacco Use Types Packs/Day Years [...] of Treatment Not on file Care Teams Audio Visual Design Engineer Relationship Specialty Start Date End Date No Ref-Primary, Physician PCP - General 12/09/18
--- OUTSIDE RECORDS SUMMARY | 2024-03-17 15:47 | XMS_ITS | Encounter Summary ---
Author Organization [facility] Address [address] [place] [address] Care Team Providers Care Oral Surgeon Name Role Phone None Reported, Pcp Primary Care Provider Unavail able Encounter Details Date Type Department Care Team (Late st Contact Info) Description 01/23/2024 Documentation Division of Gastroenterology in [place], [place] [address] [place] [phone] Iván Sky M.D. Social History Tobacco Use Types Packs/Day Years [...] your living situation today? I have a [facility] place to live 01/31/2023 Sex and [...] on filedocumented in this encounter Care Teams Oral Surgeon Relationship Specialty Start Date End Date None Reported, Pcp PCP - General Family Medicine 02/06/23 documented as of this encounter
--- OUTSIDE RECORDS SUMMARY | 2024-03-17 15:47 | XMS_ITS | Clinical Summary ---
Author Organization [facility] Address [address] [place] [address] Care Team Providers Care Automobile Damage Field Appraiser Name Role Phone No Ref-Primary, Physician Primary [...] Overview: Added automatically from request for surgery [id number] Family History Medical History Relation Comments Hypertension [...] of Treatment Not on file Care Teams Automobile Damage Field Appraiser Relationship Specialty Start Date End Date No Ref-Primary, Physician PCP - General 12/09/18
--- OUTSIDE RECORDS SUMMARY | 2024-03-17 15:47 | XMS_ITS | Referral Summary ---
Author Organization [facility] Address [address] [place] [address] Care Team Providers Care Health Club Manager Name Role Phone None Reported, Pcp Primary Care Provider Unavail able Source Comments Patient records contain information from all sites at [facility]. For routine questions regarding patient records, call [phone] during business hours, M-F 8:00 AM - 5:00 PM Central Time. Record requests for emergency care only can be directed to [phone] at any time.[facility] Encounters Date Type Department Care Team Description 01/23/2024 Documentation Division of Gastroenterology in [place], [place] [address] [place] [phone] Iván Sky M.D. 01/22/2024 12:54 PM CDT - 01/22/2024 11:59 PM CDT Hospital Encounter Department of Laboratory Medicine and Pathology, [facility], in [place], [place] [address] [place] [phone] Inés Gipson M.D. Hypothyroidism Primary Discharge Disposition: Home or Self Care 01/22/2024 Orders Only Division of Endocrinology in [place], [place] [address] [place] [phone] Inés Gipson M.D. Hypothyroidism Primary (Primary Dx) 01/22/2024 11:00 AM CDT Clinical Support [facility] Prep Facility in [place], [place] [address] [place] [phone] Hung Botello M.D. Peterson, Emily L, R.N. Incontinence Fecal; Constipation 01/22/2024 11:35 AM CDT - 01/22/2024 12:53 PM CDT Hospital Encounter Division of Gastroenterology in [place], [place] [address] [place] [address] Hung Botello M.D. Incontinence Fecal; Constipation Discharge Disposition: Home or Self Care 01/22/2024 8:30 AM CDT Comprehensive Visit Division of Endocrinology in [place], [place] [address] [place] [address] Iván Sky M.D. Ayari, Lena, M.D. Constipation; Diabetes Mellitus Type 2 With Diabetic Neuropathy (HCC) 12/19/2023 8:39 AM CDT - 12/19/2023 11:59 PM CDT Hospital Encounter Department of Laboratory Medicine in [place], [place] [address] [place] [address] Iván Sky M.D. Constipation; Diabetes Mellitus Type [...] a day. Active blood sugar diagnostic strips (ZuseTouch Ultra Test Strips) 1 test once as [...] (02/06/2023): Added automatically from request for surgery [id number] Sinusitis Chronic 05/05/2018 Tendinitis Bicipital Left 10/22/2017 [...] Date Recorded Employment status Working with temporary [employer] t[employer] 01/31/2023 Housing Stability Answer Date Recorded What is your living situation today? I have a [facility] place to live 01/31/2023 Sex and [...] 01/22/2024 8:35 AM CDT Plan of Treatment Not on file Procedures Procedure Name Priority Date/Time Associated Diagnosis [...] CDT Inés Gipson M.D. LAB BLOOD ADD-ON [facility] [address] [place] [address], [facility] DTL [facility] [address] [place] [address] * (ABNORMAL) Hemoglobin A1c (12/19/2023 8:48 AM [...] LAB BLOOD ADD-O N Performing Organization Address [facility] Co de Phone Number [facility] [address] [place] [address], [facility] OWAT [facility] [place] [address] [place] [address] * Glucose, Fasting (12/19/2023 8:48 AM CDT) Glucose, P 88 70 - 100 mg/dL 12/19/2023 1:12 PM CDT OWAT Last Intake 11 hr 12/19/2023 12:50 PM CDT OWAT Blood (Blood, Venous) 12/19/2023 8:48 AM CDT 12/19/2023 12:50 PM CDT Iván Saleh M.D. LAB BLOOD NON A DD-ON Performing Organization Address [facility]/ZIP Co de Phone Number [facility] [address] [place] [address], [facility] OWAT [facility] [place] [address] [place] [address] * (ABNORMAL) Creatinine with Estimated GFR (12/19/2023 8:48 AM CDT) Creatinine 1.13(H) 0.59 - 1.04 mg/dL 12/19/2023 1:31 PM CDT OWAT Estimated GFR (eGFR) 53(L) >=60 mL/min/BSA 12/19/2023 1:31 PM CDT OWAT Comment: Estimated GFR calculated using the 2020 CKD_EPI creatinine equation. Blood (Blood, Venous) 12/19/2023 8:48 AM CDT 12/19/2023 12:57 PM CDT Iván Saleh M.D. LAB BLOOD ADD-O N [facility] [address] [place] [address], [facility] OWAT [facility] in [place] [address] [place] [address] * (ABNORMAL) Comprehensive Metabolic Panel (02/18/2023 12:37 [...] CDT Pepe Lobo M.D. LAB BLOOD ADD-ON [facility] [address] [place] [address], [place] DTL [facility] [address] [place] [address] from Last 3 Months or Most Recently Relevant to Health Maintenance Care Teams Health Club Manager Relationship Specialty Start Date End Date None Reported, Pcp PCP - General Family Medicine 02/06/23
--- OUTSIDE RECORDS SUMMARY | 2024-03-17 15:48 | XMS_ITS | Encounter Summary ---
Author Organization [facility] Address [address] [place] [address] Care Team Providers Care Digital Content Marketing Manager Name Role Phone None Reported, Pcp Primary Care Provider Unavail able Reason for Referral * Outpatient (Routine) - Closed Specialty Diagnoses / Procedures Referred By Myriam wise Referred To Contact Diagnoses Incontinence Fecal Constipation Procedures Anorectal Manometry Hung Botello M.D. [address] [place] [phone] [facility] Referral ID Status Reason Start Date Expiration Date Visits Re quested Visits Authorized [id number] Closed 09/27/2023 09/26/2024 1 1 Reason for Visit * Outpatient (Routine) - Closed Specialty Diagnoses / Procedures Referred By Myriam wise Referred To Contact Diagnoses Incontinence Fecal Constipation Procedures Anorectal Manometry Hung Botello M.D. [address] [place] [phone] [facility] Referral ID Status Reason Start Date Expiration Date Visits Re quested Visits Authorized [id number] Closed 09/27/2023 09/26/2024 1 1 Encounter Details Date Type Department Care Team (Latest Contact Info) Description 01/22/2024 11:35 AM CDT - 01/22/2024 12:53 PM CDT Hospital Encounter Division of Gastroenterology in [place], [place] [address] [place] [phone] Hung Botello M.D. [address] [place] [phone] Incontinence Fecal; Constipation Discharge Disposition: Home or [...] your living situation today? I have a [facility] place to live 01/31/2023 Sex and [...] by mouth daily. blood sugar diagnostic strips ([employer] Ultra Test Strips) 1 test once as [...] as of this encounter Plan of Treatment Not on file documented as of this encounter Procedures Procedure Name Priority Date/Time Associated Diagnosis Comments ANORECTAL MANOMETRY Routine 01/22/2024 5:13 PM CD T Incontinence Fecal Constipation documented in this encounter Results * Anorectal Manometry (01/22/2024 5:13 PM CDT) Hung Botello M.D. GI PROCEDURE ORDERAB LES MMODAL NA documented in this encounter Visit Diagnoses Diagnosis Incontinence Fecal Constipation documented in this encounter Care Teams Digital Content Marketing Manager Relationship Specialty Start Date End Date None Reported, Pcp PCP - General Family Medicine 02/06/23 documented as of this encounter
--- OUTSIDE RECORDS SUMMARY | 2024-03-17 15:48 | XMS_ITS | Encounter Summary ---
Author Organization [facility] Address [address] [place] [address] Care Team Providers Care Inside Sales Advertising Executive Name Role Phone None Reported, Pcp Primary Care Provider Unavail able Encounter Details Date Type Department Care Team (Latest Contact Info) Description 01/22/2024 Orders Only Division of Endocrinology in [place], [place] [address] [place] [phone] Inés Gipson M.D. [address] [place] [phone] Hypothyroidism Primary (Primary Dx) Social History Tobacco [...] your living situation today? I have a [facility] place to live 01/31/2023 Sex and Gender Information Value Date Recorded Sex Assigned at Female 10/06/2023 10:05 AM CDT Gender Identity Female 10/06/2023 10:05 AM CDT Sexual Orientation Straight 10/06/2023 10 :05 AM CDT documented as of this encounter Plan of Treatment Not on file documented as of this encounter Results * S-TSH (Thyroid-Stimulating Hormone - Sensitive) (01/22/2024 1:05 PM CDT) TSH, Sensitive 1.1 0.3 - 4.2 mIU/L 01/22/2024 2:23 PM CDT DTL Blood (Blood, Venous) 01/22/2024 1:05 PM CDT 01/22/2024 1:50 PM CDT Inés Gipson M.D. LAB BLOOD ADD-ON [facility] [address] [place] [address], [facility] [address] [place] [address] documented in this encounter Visit Diagnoses Diagnosis Hypothyroidism Primary- Primary documented in this encounter Care Teams Inside Sales Advertising Executive Relationship Specialty Start Date End Date None Reported, Pcp PCP - General Family Medicine 02/06/23 documented as of this encounter
--- OUTSIDE RECORDS SUMMARY | 2024-03-17 15:48 | XMS_ITS | Encounter Summary ---
Author Organization [facility] Address [address] [place] [address] Care Team Providers Care Business Development Representative Name Role Phone None Reported, Pcp Primary Care Provider Unavail able Reason for Referral * Outpatient (Routine) - Closed Specialty Diagnoses / Procedures Referred By Contac t Referred To Contact Endocrinology Diagnoses Constipation Diabetes Mellitus Type 2 With Diabetic Neuropathy (HCC) Iván Sky M.D. [facility] Referral ID Status Reason Start Date Expiration Date Visits Re quested Visits Authorized [id number] Closed 12/12/2023 06/12/2025 1 1 Reason for [...] Expiration Date Visits Re quested Visits Authorized [id number] Closed 09/27/2023 09/26/2024 1 1 Encounter Details Date Type Department Care Team (Latest Contact Info) Description 12/12/2023 1:10 PM CDT Comprehensive Visit Division of Gastroenterology in [place], [place] [address] [place] [address] Hung Botello M.D. 200 [place] [address] Iván Sky M.D. Diabetes Mellitus Type 2 With Diabetic [...] an upper endoscopy and colonoscopy outside of [place] about a year ago. There is no [...] of either small unformed or watery stools (Remlap 5-7) or large unformed stools (Remlap 6) with drastic increase in abdominal pain [...] documented in this encounter Plan of Treatment Scheduled Referrals Name Type Priority Associated Diagnoses [...] BLOOD NON A DD-ON Performing Organization Address City/[facility]/ZIP Co de Phone Number [facility] [address] [place] [address], [place] OWAT [facility] in [place] [address] [place] [address] * (ABNORMAL) Creatinine with Estimated GFR (12/19/2023 8:48 AM CDT) Creatinine 1.13(H) 0.59 - 1.04 mg/dL 12/19/2023 1:31 PM CDT OWAT Estimated GFR (eGFR) 53(L) >=60 mL/min/BSA 12/19/2023 1:31 PM CDT OWAT Comment: Estimated GFR calculated using the 2020 CKD_EPI creatinine equation. Blood (Blood, Venous) 12/19/2023 8:48 AM CDT 12/19/2023 12:57 PM CDT Iván Saleh M.D. LAB BLOOD ADD-O N Performing Organization Address City/[facility]/ZIP Co de Phone Number [facility] [address] [place] [address], [place] OW[place] [facility] in [place] [address] [place] [address] * (ABNORMAL) Hemoglobin A1c (12/19/2023 8:48 AM [...] Iván Saleh M.D. LAB BLOOD ADD-O N [facility] [address] [place] [address], [email or web address] OWAT [facility] in [place] [address] [place] [address] documented in this encounter Visit Diagnoses Diagnosis Diabetes Mellitus Type 2 With Diabetic Neuropathy (HCC)- Primary Constipation Pain Abdominal Chronic documented in this encounter Care Teams Business Development Representative Relationship Specialty Start Date End Date None Reported, Pcp PCP - General Family Medicine 02/06/23 documented as of this encounter
--- OUTSIDE RECORDS SUMMARY | 2024-03-17 15:48 | XMS_ITS | Encounter Summary ---
Author Organization [facility] Address [address] [place] [address] Care Team Providers Care Business Performance Specialist Name Role Phone None Reported, Pcp Primary Care Provider Unavail able Reason for Visit * Reason Onset Date Comments Pre-visit Intake 12/11/2023 Encounter Details Date Type Department Care Team (Latest Contact Info) Description 12/11/2023 7:00 AM CDT Clinical Communication Virtual Review in [place], [place] [address] [place] [address] Pre-visit Intake Social History Tobacco Use Types [...] your living situation today? I have a [facility] place to live 01/31/2023 Sex and Gender Information Value Date Recorded Sex Assigned at Female 10/06/2023 10:05 AM CDT Gender Identity Female 10/06/2023 10:05 AM CDT Sexual Orientation Straight 10/06/2023 10 :05 AM CDT documented as of this encounter Plan of Treatment Not on file documented as of this encounter Visit Diagnoses Not on filedocumented in this encounter Care Teams Business Performance Specialist Relationship Specialty Start Date End Date None Reported, Pcp PCP - General Family Medicine 02/06/23 documented as of this encounter
--- OUTSIDE RECORDS SUMMARY | 2024-03-17 15:48 | XMS_ITS | Encounter Summary ---
Author Organization [facility] Address [address] [place] [address] Care Team Providers Care Automotive Tire Tester Name Role Phone None Reported, Pcp Primary [...] Date Recorded Employment status Working with temporary [employer] 01/31/2023 Housing Stability Answer Date Recorded What is your living situation today? I have a [facility] place to live 01/31/2023 Sex and [...] on filedocumented in this encounter Care Teams Automotive Tire Tester Relationship Specialty Start Date End Date None Reported, Pcp PCP - General Family Medicine 02/06/23 documented as of this encounter
--- OUTSIDE RECORDS SUMMARY | 2024-03-17 15:48 | XMS_ITS | Clinical Summary ---
Author Organization [facility] Address [place], [place] [address] Care Team Providers Care Equipment Man Name Role Phone Alie Lizarraga MD Primary [...] Description 01/29/2024 8:00 AM CDT Ancillary Procedure [facility][Note 3] at [facility] [address] [place] [address] from Last 3 Months Immunizations Name Administration [...] 165 cm (5' 4.96) 06/23/2019 8:20 AM [facility]ER[facility] RE[facility]ILIT[facility] COUNSELOR Body Mass Index 29.81 06/23/2019 8:20 AM VETERANS REHABILITATION COUNSELOR Plan of Treatment Health Maintenance Due Date [...] prolapse LIPID PANEL Routine 06/23/2019 9:20 AM VETERANS REHABILITATION COUNSELOR Mixed hyperlipidemia XR MAMMO BILAT SCREENING Routine [...] PM CDT ECHOCARDIOGRAM NATY CHAMPION ?Accession#: ?? [id number] : ?1955 68 years Study Date: ?? 01/29/2024 8:07:39 AM Gender: F ? BP: ? 145/58 mmHg Height: 165.00 cm ? BSA: ?1.88 m? ? ? Weight: 81.00 kg ?Tech: ? MJJ ?Referring MD: ALIE LIZARRAGA Site: ? [facility] Reading Location: MOBILE-OP Patient Location: [...] . This study was interpreted by an [facility] accredited facility. CC: HIM ([facility]) [facility]. ??Final ?? Procedure Note Sagar Keita MD - 01/29/2024 ECHOCARDIOGRAM NATY CHAMPION : 1955 68 years Study Date: 01/29/2024 8:07:39 AM Gender: F BP: 145/58 mmHg Height: 165.00 cm BSA: 1.88 m? ? ? Weight: 81.00 kg Tech: [facility] Referring MD: ALIE LIZARRAGA Site: [facility] Reading Location: MOBILE-OP Patient Location: [...] [facility] accredited facility. CC: FINN (med records) [facility]. Final Alie Lizarraga MD ECHO ORD * (ABNORMAL) LIPID PANEL (06/23/2019 9:20 AM VETERANS REHABILITATION COUNSELOR) CHOLESTEROL,TOTAL 182 100 - 199 mg/dL 06/23/2019 10:01 AM [facility] TRIGLYCERIDES 294(H) <150 mg/dL 06/23/2019 10:01 AM [facility] HDL CHOLESTEROL 48 >40 mg/dL 9 10:01 AM [facility] NON-HDL CHOLESTEROL 134 <145 mg/dl 06/23/2019 10:01 AM [facility] CHOL/HDL RATIO 3.79 <4.50 06/23/2019 10:01 AM [facility] LDL CHOLESTEROL 75 <=130 mg/dL 06/23/2019 10:01 AM VETERANS REHABILITATION COUNSELOR [facility] PROVIDER ORDERED STATUS RANDOM 06/23/2019 10:01 AM [facility] Blood BLOOD SPECIMEN / Unknown Butterfly / Unknown 06/23/2019 9:20 AM VETERANS REHABILITATION COUNSELOR 06/23/2019 9:20 AM VETERANS REHABILITATION COUNSELOR Sydney Lakhani NP CHEMISTRY [facility] [address] [place] [address] * XR MAMMO BILAT SCREENING (01/16/2019 2:00 PM CDT) Anatomical Region Laterality Modality BREASTS, Breast Left, Breast Right Bilateral Mammography Impressions 01/19/2019 6:53 AM CDT ??There is no radiographic evidence for malignancy. ??Recommend annual mammograms. A lay language report of this examination will be provided to the patient. MAMMOGRAM ASSESSMENT: ??ACR 2 Benign Narrative 01/19/2019 6:53 AM CDT XR MAMMO BILAT SCREENING [[id number]] CLINICAL HISTORY: ??This is an asymptomatic 63 [...] Recently Relevant to Health Maintenance Care Teams Equipment Man Relationship Specialty Start Date End Date Alie Lizarraga MD [address] [place] [address] PCP - General Family Practice 10/30/23
--- OUTSIDE RECORDS SUMMARY | 2024-03-17 15:48 | XMS_ITS | Encounter Summary ---
Author Organization [facility] Address [address] [place] [address] Care Team Providers Care Side Stitcher Name Role Phone None Reported, Pcp Primary Care Provider Unavail able Encounter Details Date Type Department Care Team (Latest Contact Info) Description 01/22/2024 12:54 PM CDT - 01/22/2024 11:59 PM CDT Hospital Encounter Department of Laboratory Medicine and Pathology, [facility] in [place], [place] [address] [place] [phone] Inés Gipson M.D. [address] [place] [phone] Hypothyroidism Primary Discharge Disposition: Home or Self [...] your living situation today? I have a [facility] place to live 01/31/2023 Sex and [...] by mouth daily. blood sugar diagnostic strips ([employer] Ultra Test Strips) 1 test once as [...] CDT Inés Gipson M.D. LAB BLOOD ADD-ON [facility] [address] [place] [address], [facility] [address] [place] [address] documented in this encounter Visit Diagnoses Diagnosis Hypothyroidism Primary documented in this encounter Care Teams Side Stitcher Relationship Specialty Start Date End Date None Reported, Pcp PCP - General Family Medicine 02/06/23 documented as of this encounter
--- OUTSIDE RECORDS SUMMARY | 2024-03-17 15:48 | XMS_ITS | Encounter Summary ---
Author Organization [facility] Address [address] [place] [address] Care Team Providers Care Limehouse Worker Name Role Phone None Reported, Pcp Primary Care Provider Unavail able Reason for Visit * Outpatient (Routine) - Closed Specialty Diagnoses / Procedures Referred By Myriam wise Referred To Contact Endocrinology Diagnoses Constipation Diabetes Mellitus Type 2 With Diabetic Neuropathy (HCC) Iván Sky M.D. [facility] Referral ID Status Reason Start Date Expiration Date Visits Re quested Visits Authorized [id number] Closed 12/12/2023 06/12/2025 1 1 Encounter Details Date Type Department Care Team (Latest Contact Info) Description 01/22/2024 8:30 AM CDT Comprehensive Visit Division of Endocrinology in [place], [place] [address] [place] [phone] Iván Sky M.D. Ayari, Lena, M.D. [address] [place] [phone] Constipation; Diabetes Mellitus Type 2 With Diabetic [...] your living situation today? I have a [facility] place to live 01/31/2023 Sex and [...] months with her local provider. A hemoglobin I5nmnuotg 7% is sufficient to reduce long-term microvascular complications. * Candi Mon M.D. - 01/22/2024 8:30 AM CDT SUBJECTIVE CHIEF COMPLAINT / REASON FOR VISIT Naty Barahona is a 68 y.o. female presenting in referral from Joel Storey for consultation in the evaluation of type 2 diabetes management. Past medical history is notable for hypothyroidism, HLD, GERD, and prior TIAs. HISTORY OF PRESENT ILLNESS Patient states that she was referred by her measuring clerk due to concern that Trulicity may becontributing [...] (HCC) documented in this encounter Care Teams Limehouse Worker Relationship Specialty Start Date End Date None Reported, Pcp PCP - General Family Medicine 02/06/23 documented as of this encounter
--- OUTSIDE RECORDS SUMMARY | 2024-03-17 15:48 | XMS_ITS | Encounter Summary ---
Author Organization [facility] Address [address] [place] [address] Care Team Providers Care Track Worker Name Role Phone None Reported, Pcp Primary Care Provider Unavail able Reason for Referral * Outpatient (Routine) - Closed Specialty Diagnoses / Procedures Referred By Myriam wise Referred To Contact Diagnoses Constipation Procedures DX Abdomen 1 View Hung Botello M.D. [address] [place] [phone] [facility] Referral ID Status Reason Start Date Expiration Date Visits Re quested Visits Authorized [id number] Closed 09/27/2023 09/26/2024 1 1 Reason for Visit * Outpatient (Routine) - Closed Specialty Diagnoses / Procedures Referred By Myriam wise Referred To Contact Diagnoses Constipation Procedures DX Abdomen 1 View Hung Botello M.D. [address] [place] [phone] [facility] Referral ID Status Reason Start Date Expiration Date Visits Re quested Visits Authorized [id number] Closed 09/27/2023 09/26/2024 1 1 Encounter Details Date Type Department Care Team (Latest Contact Info) Description 12/12/2023 11:57 AM CDT - 12/12/2023 11:59 PM CDT Hospital Encounter Department of Radiology, [facility] in [place], [place] [address] [place] [phone] Hung Botello M.D. [address] [place] [phone] Constipation Discharge Disposition: Home or Self Care [...] by mouth daily. blood sugar diagnostic strips ([employer]orex Ultra Test Strips) 1 test once as [...] Constipation documented in this encounter Care Teams Track Worker Relationship Specialty Start Date End Date None Reported, Pcp PCP - General Family Medicine 02/06/23 documented as of this encounter
--- OUTSIDE RECORDS SUMMARY | 2024-03-17 15:48 | XMS_ITS | Encounter Summary ---
Author Organization [facility] Address [address] [place] [address] Care Team Providers Care Advanced Manufacturing Engineer Name Role Phone None Reported, Pcp Primary Care Provider Unavail able Reason for Visit * Outpatient (Routine) - Closed Specialty Diagnoses / Procedures Referred By Myriam wise Referred To Contact Dermatology Augusta Peña M.D. [address] [place] [phone] [facility] Referral ID Status Reason Start Date Expiration Date Visits Re quested Visits Authorized [id number] Closed 12/05/2023 06/05/2025 1 1 Encounter Details Date Type Department Care Team (Late st Contact Info) Description 12/12/2023 3:00 PM CDT Nurse Only Department of Dermatology in [place], [place] [address] [place] [phone] Augusta Peña M.D. [address] [place] [phone] Kg Cabral R.N. [address] [place] [phone] Discharge Disposition: Home or Self Care Social [...] your living situation today? I have a [facility] place to live 01/31/2023 [...] on December 05, [address] Dwight Lobo([id number]) to right cheek for hypertrophic scar . Verbal consent for procedure obtained from patient and spouse. Patient discussed and seen with supervising polymer materials consultant Supervising Physician: Dr. Dwight Lobo ([id number]). Final Pause: A final pause occurred just [...] on filedocumented in this encounter Care Teams Advanced Manufacturing Engineer Relationship Specialty Start Date End Date None Reported, Pcp PCP - General Family Medicine 02/06/23 documented as of this encounter
--- OUTSIDE RECORDS SUMMARY | 2024-03-17 15:48 | XMS_ITS | Encounter Summary ---
Author Organization [facility] Address [address] [place] [address] Care Team Providers Care Headliner Installer Name Role Phone None Reported, Pcp Primary Care Provider Unavail able Encounter Details Date Type Department Care Team (Latest Contact Info) Description 12/19/2023 8:39 AM CDT - 12/19/2023 11:59 PM CDT Hospital Encounter Department of Laboratory Medicine in [address] [phone] Iván Sky M.D. Constipation; Diabetes Mellitus Type [...] your living situation today? I have a [facility] place to live 01/31/2023 Sex and [...] by mouth daily. blood sugar diagnostic strips ([employer] Ultra Test Strips) 1 test once as [...] Saleh M.D. LAB BLOOD NON A DD-ON [facility] [address] [place] [address], [facility] in [place] [address] [place] [address] * (ABNORMAL) Creatinine with Estimated GFR (12/19/2023 8:48 AM CDT) Creatinine 1.13(H) 0.59 - 1.04 mg/dL 12/19/2023 1:31 PM CDT [facility] Estimated GFR (eGFR) 53(L) >=60 mL/min/BSA 12/19/2023 1:31 PM CDT [facility] Comment: Estimated GFR calculated using the 2020 CKD_EPI creatinine equation. Blood (Blood, Venous) 12/19/2023 8:48 AM CDT 12/19/2023 12:57 PM CDT Iván Saleh M.D. LAB BLOOD ADD-O N Performing Organization Address [facility] Co de Phone Number [facility] [address] [place] [address], [facility] in [place] [address], [place] [address] * (ABNORMAL) Hemoglobin A1c (12/19/2023 8:48 AM [...] LAB BLOOD ADD-O N Performing Organization Address City/[facility]/ZIP Co de Phone Number [facility] [address] [place] [address], [place] [facility] in [place] [address] [place] [address] documented in this encounter Visit Diagnoses Diagnosis Constipation Diabetes Mellitus Type 2 With Diabetic Neuropathy (HCC) documented in this encounter Care Teams Headliner Installer Relationship Specialty Start Date End Date None Reported, Pcp PCP - General Family Medicine 02/06/23 documented as of this encounter
--- OUTSIDE RECORDS SUMMARY | 2024-03-17 15:48 | XMS_ITS | Encounter Summary ---
Author Organization [facility] Address [address] [place] [address] Care Team Providers Care Control Room Technician Name Role Phone None Reported, Pcp Primary Care Provider Unavail able Reason for Visit * Reason Comments Constipation * Outpatient (Routine) - Closed Specialty Diagnoses / Procedures Referred By Myriam wise Referred To Contact Diagnoses Incontinence Fecal Constipation Procedures Enema Prep Hung Botello M.D. [address] [place] [phone] [facility] Referral ID Status Reason Start Date Expiration Date Visits Re quested Visits Authorized [id number] Closed 09/27/2023 09/26/2024 1 1 Encounter Details Date Type Department Care Team (Latest Contact Info) Description 01/22/2024 11:00 AM CDT Clinical Support Enema Prep Facility in [place], [place] [address] [place] [phone] Hung Botello M.D. [address] [place] [phone] Glendy Wadsworth R.N. Incontinence Fecal; Constipation Social [...] living situation today? I have a [facility] place to live 01/31/2023 Sex and Gender Information Value Date Recorded Sex Assigned at Female 10/06/2023 10:05 AM CDT Gender Identity Female 10/06/2023 10:05 AM CDT Sexual Orientation Straight 10/06/2023 10 :05 AM CDT documented as of this encounter Plan of Treatment Not on file documented as of this encounter Visit Diagnoses Diagnosis Incontinence Fecal Constipation documented in this encounter Care Teams Control Room Technician Relationship Specialty Start Date End Date None Reported, Pcp PCP - General Family Medicine 02/06/23 documented as of this encounter
== END 2024-03-17 15:43 | disposition home or self-care (01) ==
LOC: MAMMO 15:43
PROVIDERS: PCP Family Medicine; Visit Provider Family Medicine
DX: Z12.31 Encounter for screening mammogram for malignant neoplasm of breast (principal)
CPT/HCPCS: 77063; 77067

== ENCOUNTER 2024-06-01 15:14 | Outpatient (CLI) | payer OTHER, SELFPAY ==
--- OUTSIDE RECORDS SUMMARY | 2024-06-01 15:16 | XMS_ITS | Clinical Summary ---
Author Organization [facility] Address [address] [place] [address] Care Team Providers Care Machine Stonecutter Name Role Phone No Ref-Primary, Physician Primary [...] 12/03/2018 Pumpkin Flavor Anaphylaxis High 12/03/2018 Medications B Complex Vitamins (VITAMIN B COMPLEX PO) Take 1 tablet by mouth daily Active bumetanide (BUMEX) 1 MG tablet Take 1 mg by mouth daily Active ciprofloxacin (CIPRO) 500 MG tablet Take 500 mg by mouth 2 times daily Active citalopram (CELEXA) 40 MG tablet Take 40 mg by mouth daily Active Cranberry 400 MG CAPS Take 400 mg by mouth Active dulaglutide (TRULICITY) 0.75 MG/0.5ML pen Inject 0.75 [...] 30 mg by mouth daily Active levothyroxine (SYNTHROID/LEVO THROID) 75 MCG tablet Take 75 mcg by mouth daily Active LORazepam (ATIVAN) 0.5 MG tablet Take 0.5 mg by mouth nightly as needed for anxiety Active pregabalin (LYRICA) 75 MG capsule Take 75 mg by mouth 2 times daily Active meloxicam (MOBIC) 15 MG tablet Take 15 mg by mouth daily Active polyethylene glycol (MIRALAX/GLYCOL AX) packet Take 1 packet by mouth daily Active Multiple Vitamins-Minera ls (MULTIVITAMIN PO) Take 1 tablet by mouth [...] NIDDM type II - Test 1 time/day 8 Active blood glucose (ONETOUCH ULTRA) test strip Dispense item covered by pt ins. E11.65 NIDDM type II, uncontrolled - Test 3 times/day, Reason: High A1C 9 Active blood glucose monitoring (ONE TOUCH DELICA) lancets E11.65 NIDDM type II, uncontrolled - Test 3 times/day, Reason: High A1C 9 Active Active Problems Problem Noted Date Diagnosed Date Dizziness 12/04/2018 Overview (12/04/2018): Added automatically from request for surgery [id number] Family History Medical History Relation Comments Hypertension [...] School Help Needed Not on file 04/19 Comments Unknown Sex and Gender Information Value Date Recorded Sex Assigned at Not on file Legal Sex Female 4:34 PM CDT Gender Identity Not on file Sexual Orientation [...] CDT Plan of Treatment Not on file Insurance [place] Care Teams Machine Stonecutter Relationship Specialty Start Date End Date No Ref-Primary, Physician PCP - General 12/09/18
--- OUTSIDE RECORDS SUMMARY | 2024-06-01 15:16 | XMS_ITS | Referral Summary ---
Author Organization [facility] Address [address] [place] [address] Care Team Providers Care Academic Assistant Name Role Phone No Ref-Primary, Physician Primary [...] (12/04/2018): Added automatically from request for surgery [id number] Social History Tobacco Use Types Packs/Day Years [...] Treatment Not on file [place] Care Teams Academic Assistant Relationship Specialty Start Date End Date No Ref-Primary, Physician PCP - General 12/09/18
--- OUTSIDE RECORDS SUMMARY | 2024-06-01 15:16 | XMS_ITS | Encounter Summary ---
Author Organization [facility] Address [address] [place] [address] Care Team Providers Care Life Skills Teacher Name Role Phone No Ref-Primary, Physician Primary Care Provider Reason for Visit * Reason Onset Date Comments Appointment 12/03/2018 Tilt Table Test Encounter Details Date Type Department Care Team (Late st Contact Info) Description 12/03/2018 [facility] [address] [phone] Adult, Cardiology General Appointment (Tilt Table Test) Social History Tobacco Use Types Packs/Day Years Used Date Smoking Tobacco: Never Smokeless Tobacco: Never Alcohol Use Standard Drinks/Week Comments Not Currently 0 (1 standard drink = 0.6 oz pur e alcohol) PHQ-2 Answer Date Recorded PHQ-2 Score 0 12/03/2018 Comments Unknown Sex and Gender Information Value Date Recorded Sex Assigned at Not on file Legal Sex Female 4:34 PM CDT Gender Identity Not on file Sexual Orientation Not on file documented as of this encounter Miscellaneous Notes * Telephone Encounter - Suzette Razo - 01/12/2019 2:29 PM CDT Patient didn't show for her tilt and it was cancelled. Naomi Razo Periop Electrophysiology Non Destructive Testing Scientist [phone] * Telephone Encounter - Augusta Asher - 01/02/2019 11:53 AM CDT M [facility] Call Center Phone Message May a detailed message be left on voicemail: yes Reason for Call: CANCELLATION - pt has been in hospital since December 19 and she would like to put these appointment on hold until he is out of the hospital, please call patient with further questions Action Taken: Message routed to: [facility] CARDIO * Telephone Encounter - Mayra Rosen - 12/03/2018 2:53 PM CDT [facility] Call Center Phone Message May [...] if possible. Action Taken: Message routed to: [facility] Cardiology documented in this encounter Plan of Treatment Not on file documented as of this encounter Visit Diagnoses Not on filedocumented in this encounter Care Teams Life Skills Teacher Relationship Specialty Start Date End Date No Ref-Primary, Physician PCP - General 12/09/18 documented as of this encounter
--- OUTSIDE RECORDS SUMMARY | 2024-06-01 15:16 | XMS_ITS | Clinical Summary ---
Author Organization [facility] Address [address] [place] [address] Care Team Providers Care Lift Truck Mechanic Name Role Phone None Reported, Pcp Primary Care Provider Unavail able Source Comments Patient records contain information from all sites at [facility]. For routine questions regarding patient records, call [phone] during business hours, M-F 8:00 AM - 5:00 PM Central Time. Record requests for emergency care only can be directed to [phone] at any time.[facility] Allergies Active Allergy Reactions Criticality Noted Date [...] Reaction),Shortness of breath (Reselect Reaction) 10/10/2023 Medications cranberry 400 mg capsule Take 400 mg by mouth. 2,500 mg daily Active bumetanide (BUMEX) 1 mg tablet Take 1 mg by mouth daily. For edema 0 Active busPIRone (BUSPAR) 5 mg tablet Take 5 mg by mouth 2 (two) times a day. Active citalopram (CeleXA) 40 mg tablet Take 40 mg by mouth daily. 0 Active cyanocobalamin, vitamin B-12, 5,000 mcg tablet, IR & ER, biphasic Take 1 tablet by mouth daily. Active estradioL (ESTRACE) 0.1 mg/g (0.01%) vaginal cream Insert 2 g into the vagina 3 (three) times a week. 9 Active hyoscyamine (LEVBID) 0.375 mg 12 hr tablet Take 0.375 mg by mouth every 12 (twelve) hours. 0 Active levothyroxine (SYNTHROID, LEVOTHROID) 75 mcg tablet Take 75 mcg by mouth every morning before breakfast. 0 Active multivitamin tablet Take 1 tablet by mouth daily. 8 Active rosuvastatin (CRESTOR) 20 mg tablet Take 20 mg by mouth at bedtime. 0 Active sennosides-docu sate sodium (SENOKOT-S) 8.6-50 mg per tablet Take 1 tablet by mouth 2 (two) times a day. Active VITAMIN B COMPLEX ORAL Take 1 tablet by mouth daily. 8 Active APPLE CIDER VINEGAR ORAL Take 2 tablets by mouth daily. Active acetaminophen (TYLENOL) 500 mg tablet Take 1,000 mg by mouth 3 (three) times a day. Active ibuprofen (ADVIL,MOTRIN) 200 mg capsule Take 800 mg by mouth 2 (two) times a day. Active blood sugar diagnostic strips (Symbiotec PharmalabTouch Ultra Test Strips) 1 test once as needed. 2-4 times daily 9 Active triamcinolone (KENALOG) 0.1 % cream Apply 1 Application topically 2 (two) times a day for 7 days. Apply to neck. 240 g 3 4 Active omeprazole (PriLOSEC) [address] capsule [...] (02/06/2023): Added automatically from request for surgery [id number] Sinusitis Chronic 05/05/2018 Tendinitis Bicipital Left 10/22/2017 [...] Date Recorded Employment status Working with temporary [employer] 01/31/2023 Housing Stability Answer Date Recorded What is your living situation today? 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 Gender Identity Female 10/06/2023 10:05 AM CDT [...] Date Last Done Comments Bone Density Scan (Osteoporosis Screen) 1954 CT Colonography 1955 Cologuard 1955 Colonoscopy 1955 Colorectal Cancer Screening 1955 Diabetic Office Visit with Foot Exam 1954 Dilated Eye Exam 1954 FIT 1955 Hepatitis C Screening 1955 Mammogram 1955 Urine Albumin 1955 Visit: Chronic Disease, age 18+ 1955 Visit: Medicare Annual Wellness 1955 Hepatitis B Vaccines (1 of 3 - Risk 3-dose series) 2014 Depression Screening (Annual PHQ-2) 07/29/2023 Fall Risk Screen (Annual) 07/29/2023 Zoster Vaccines (2 of 2) 02/18/2024 12/24/2023 Potassium Level 02/19/2024 02/18/2023, 01/26, 06/23/2019, Additional history exists Sodium Level 02/19/2024 02/18/2023, 01/26, 06/23/2019, Additional history exists COVID-19 Vaccine ( season) 2024 07/17/2022, 01/31/2022, 06/20/2021, Additional history exists Influenza Vaccine (#1) 2024 , 05/26/2021, 04/11/2020, Additional history exists Hemoglobin A1C 06/20/2024 12/19/2023, 05/30, 12/11/2018, Additional history exists Lipid (Cholesterol) Screening 06/23/2024 06/23/2019, 12/11/2018, 08/22/2018, Additional history exists Creatinine Level (Kidney Function Test) 12/18/2024 12/19/2023, 02/18/2023, 02/06/2023, Additional history exists Office Visit for Blood Pressure Check / Re-check 01/21/2025 01/22/2024 Thyroid Stimulating Hormone (TSH) test for thyroid function 01/21/2025 01/22/2024, 06/23/2019, 12/11/2018, Additional history exists DTaP,Tdap,and Td Vaccines (2 - Td or Tdap) 06/23/2029 06/23/2019 Pneumococcal vaccine (65+ years) Completed 07/12/2020, 06/23/2019, 06/13/2019 IPV Vaccines Aged Out No longer eligi ble based on patient's age to complete this topic Procedures Procedure Name Priority Date/Time Associated Diagnosis Comments THYROID-STIMULATING HORMONE-SENSITIVE (S-TSH) Routine 01/22/2024 1:05 PM CDT Hypothyroidism Primary HEMOGLOBIN A1C, B Routine 12/19/2023 8:4 8 AM CDT Constipation Diabetes Mellitus Type 2 With Diabetic Neuropathy (HCC) CREATININE WITH EGFR, S/P Routine 12/19/2023 8:48 AM CDT Constipation Diabetes Mellitus Type 2 With Diabetic Neuropathy (HCC) COMPREHENSIVE METABOLIC PANEL, S/P Routine 02/18/2023 12:37 PM CDT Wound Infection Initial (HCC) from Last 3 Months or Most Recently Relevant to Health Maintenance Results * S-TSH (Thyroid-Stimulating Hormone - Sensitive) (01/22/2024 1:05 PM CDT) Pathologist [facility] TSH, Sensitive 1.1 0.3 - 4.2 mIU/L 01/22/2024 2:23 PM CDT DTL Blood (Blood, Venous) 01/22/2024 1:05 PM CDT 01/22/2024 1:50 PM CDT us Inés Gipson M.D. LAB BLOOD ADD-ON Final Res ult [facility] [address] [place] [address], [facility] [address] [place] [address] * (ABNORMAL) Hemoglobin A1c (12/19/2023 8:48 AM CDT) Pathologist [facility] Hemoglobin A1c, B 5.8(H) 4.2 - 5.6 % 12/19/2023 1:37 PM CDT OWAT Comment: Hemoglobin A1c values of 5.7-6.4 percent indicate an increased risk for developing diabetes mellitus. In diabetic patients, HbA1c goals should be discussed with healthcare provider. Blood (Blood, Venous) 12/19/2023 8:48 AM CDT 12/19/2023 12:57 PM CDT Iván Saleh M.D. LAB BLOOD ADD-ON Final Result Performing Organization Address City/[facility]/ZIP Co de Phone Number [facility] [address] [place] [address], [place] OW[place] [facility] [place] [address] [address] * (ABNORMAL) Creatinine with Estimated GFR (12/19/2023 8:48 AM CDT) Creatinine 1.13(H) 0.59 - 1.04 mg/dL 12/19/2023 1:31 PM CDT OWAT Estimated GFR (eGFR) 53(L) >=60 mL/min/BSA 12/19/2023 1:31 PM CDT OWAT Comment: Estimated GFR calculated using the 2020 CKD_EPI creatinine equation. Blood (Blood, Venous) 12/19/2023 8:48 AM CDT 12/19/2023 12:57 PM CDT Iván Saleh M.D. LAB BLOOD ADD-ON Final Result [facility] [address] [place] [address], [place] [facility] [place] [address] [place] [address] * (ABNORMAL) Comprehensive Metabolic Panel (02/18/2023 12:37 [...] CDT Pepe Lobo M.D. LAB BLOOD ADD-ON Final Resu lt [facility] [address] [place] [address], [place] D[place] [facility] [address] [place] [address] from Last 3 Months or Most Recently Relevant to Health Maintenance Insurance [employer] Care Teams Lift Truck Mechanic Relationship Specialty Start Date End Date None Reported, Pcp PCP - General Family Medicine 02/06/23
--- OUTSIDE RECORDS SUMMARY | 2024-06-01 15:17 | XMS_ITS | Clinical Summary ---
Author Organization [employer] [facility] Address [place], [place] [address] Care Team Providers Care Cnc Cutting Operator Name Role Phone Aruna Mahan MD Primary [...] left shoulder pain 09/20/2017 Lumbar stenosis 06/02/2017 Overview (06/02/2017): Takes meloxicam as needed. Occasionally requires toradol but uses very sparingly. Frequent UTI 06/02/2017 Overview (06/02/2017): Taking cranberry pills and using estrogen cream. Mild intermittent asthma without complication Overview (06/02/2017): Related to h/o [place] Fever Bilateral leg edema 05/24/2017 CVA (cerebral vascular accident) 07/29/1998 Overview (06/02/2017): Lacunar in 1998, with several TIAs since. Lupus (systemic lupus erythematosus) 07/29/1995 Overview (06/02/2017): Affects her GI system usually. Occasionally has facial rash. Has not established with Rheumatology locally. Type 2 diabetes mellitus with diabetic neuropath y Overview (06/02/2017): Actos and victoza is the combination that [...] valve prolapse Symptomatic PVCs Depression with anxiety Overview (06/02/2017): Has tried and failed Paxil, Prozac, Effexor. Pristiq helped the best but not covered by insurance. Currently on celexa with alprazolam as needed. Hyperlipidemia Overview (05/24/2017): Has failed multiple statins. Currently tolerating crestor. [...] 165 cm (5' 4.96) 06/23/2019 8:20 AM TRUCK SERVICE MANAGER Body Mass Index 29.81 06/23/2019 8:20 AM TRUCK SERVICE MANAGER Plan of Treatment Health Maintenance Due Date [...] history exists COVID-19 vaccine series ( season) 2024 07/17/2022, 01/31/2022, 06/20/2021, Additional history exists Influenza for age 65+ 03/29/2024 04/07/2019 , 05/05/2018, 04/28/2017 Lipids for age 45-75 06/23/2024 06/23/2019, 12/11/2018, 08/22/2018, Additional history exists Tetanus booster 06/23/2029 06/23/2019 Tdap Completed 06/23/2019 Procedures Procedure Name Priority Date/Time Associated Diagnosis Comments LIPID PANEL Routine 06/23/2019 9:20 AM TRUCK SERVICE MANAGER Mixed hyperlipidemia XR MAMMO BILAT SCREENING Routine 01/16/2019 2:00 PM CDT Breast screening, unspecified from Last 3 Months or Most Recently Relevant to Health Maintenance Results * (ABNORMAL) LIPID PANEL (06/23/2019 9:20 AM TRUCK SERVICE MANAGER) CHOLESTEROL,TOTAL 182 100 - 199 mg/dL 06/23/2019 10:01 AM [facility] TRIGLYCERIDES 294(H) <150 mg/dL 06/23/2019 10:01 AM [facility] HDL CHOLESTEROL 48 >40 mg/dL 9 10:01 AM TRUCK SERVICE MANAGER [facility] NON-HDL CHOLESTEROL 134 <145 mg/dl 06/23/2019 10:01 AM [facility] CHOL/HDL RATIO 3.79 <4.50 06/23/2019 10:01 AM [facility] LDL CHOLESTEROL 75 <=130 mg/dL 06/23/2019 10:01 AM [facility] PROVIDER ORDERED STATUS RANDOM 06/23/2019 10:01 AM [facility] Blood BLOOD SPECIMEN / Unknown Butterfly / Unknown 06/23/2019 9:20 AM TRUCK SERVICE MANAGER 06/23/2019 9:20 AM TRUCK SERVICE MANAGER ySdney Lakhani NP CHEMISTRY Performing Organization Address [facility] Co de Phone Number [facility] [address] [place] [address] * XR MAMMO BILAT SCREENING (01/16/2019 2:00 PM CDT) Anatomical Region Laterality Modality BREASTS, Breast Left, Breast Right Bilateral Mammography Impressions 01/19/2019 6:53 AM CDT ??There is no radiographic evidence for malignancy. ??Recommend annual mammograms. A lay language report of this examination will be provided to the patient. MAMMOGRAM ASSESSMENT: ??ACR 2 Benign Narrative 01/19/2019 6:53 AM CDT XR MAMMO BILAT SCREENING [[id number]] CLINICAL HISTORY: ??This is an asymptomatic 63 [...] Recently Relevant to Health Maintenance Care Teams Cnc Cutting Operator Relationship Specialty Start Date End Date Aruna Mahan MD [address] [place] [address] PCP - General Family Practice 10/30/23
--- OUTSIDE RECORDS SUMMARY | 2024-06-01 15:17 | XMS_ITS ---
Author Organization [facility] Address [address] [place] [address] Care Team Providers Care Supplier Quality Specialist Name Role Phone Unavailable Unavailable Unavailable Surgery Details Not on file Complications Check Surgery Details section. Procedure Estimated Blood Loss Check Surgery Details section. Procedure Findings Check Surgery Details section. Procedure Specimens Taken Check Surgery Details section.
--- OUTSIDE RECORDS SUMMARY | 2024-06-01 15:17 | XMS_ITS | Referral Summary ---
Author Organization [facility] Address [address] [place] [address] Care Team Providers Care Log Brander Name Role Phone None Reported, Pcp Primary Care Provider Unavail able Source Comments Patient records contain information from all sites at [facility]. For routine questions regarding patient records, call [phone] during business hours, M-F 8:00 AM - 5:00 PM Central Time. Record requests for emergency care only can be directed to [phone] at any time.[facility] Allergies Active Allergy Reactions Criticality [...] a day. Active blood sugar diagnostic strips (Book&TableTouch Ultra Test Strips) 1 test once as [...] (02/06/2023): Added automatically from request for surgery [id number] Sinusitis Chronic 05/05/2018 Tendinitis Bicipital Left 10/22/2017 [...] Date Recorded Employment status Working with temporary [employer] 01/31/2023 Housing Stability Answer Date Recorded What is your living situation today? 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 LAB BLOOD ADD-ON Final Res ult [facility] [address] [place] [address], [facility] [address] [place] [address] * (ABNORMAL) Hemoglobin A1c (12/19/2023 8:48 AM [...] BLOOD ADD-ON Final Result Performing Organization Address [facility]/ZIP Co de Phone Number [facility] [address] [place] [address], [place] [facility] [place] [address] [place] [address] * (ABNORMAL) Creatinine with Estimated GFR (12/19/2023 [...] BLOOD ADD-ON Final Result Performing Organization Address [facility]/ZIP Co de Phone Number [facility] [address] [place] [address], [place] [facility] [place] [address] [place] [address] * (ABNORMAL) Comprehensive Metabolic Panel (02/18/2023 12:37 [...] 12:37 PM CDT 02/18/2023 1:22 PM CDT us Pepe Lobo M.D. LAB BLOOD ADD-ON Final Resu lt [facility] [address] [place] [address], [facility] DTL [facility] [address] [place] [address] from Last 3 Months or Most Recently Relevant to Health Maintenance Insurance [employer] Care Teams Log Brander Relationship Specialty Start Date End Date None Reported, Pcp PCP - General Family Medicine 02/06/23
--- NOTE | 2024-06-01 15:30 | MR_ITS ---
[facility] [address] [facility] [address] Phone:?[phone] Fax:?[phone] Referring Physician Information: Rodrigo Wood M.D. [address] [place] [address] Phone:?[phone] Fax:?[phone] Patient:Angeline Barahona D.O.B:?1955 Sex:?Female Phone:?[phone] [facility] MRN:?[id number] Exam Date:?06/01/2024 EXAM: MRI OF THE RIGHT SHOULDER CLINICAL INFORMATION: The patient is a 68-year-old with right shoulder pain. Evaluate rotator cuff. PRIOR SURGERY: None reported. COMPARISON STUDIES: Comparison is made to prior radiographs dated 10/29/2023. TECHNICAL INFORMATION: Using a 1.5T MR scanner and a localizing shoulder surface coil: 3.0 mm?coronal obliques: PD, T2, STIR 3.0 mm?sagittal obliques: PD, T2 3.0 mm?axials: PD, T2 FINDINGS: Articular/Extraarticular collections: Effusion: Mild to moderate. Subacromial/subdeltoid: Mild to moderate fluid is seen within the subacromial/subdeltoid bursa, in keeping with changes of bursitis. Subcoracoid: No evidence for bursitis. Osseous structures: Proximal humerus: Cortical irregularity and subcortical cystic change can be seen involving the greater tuberosity region, in keeping with the rotator cuff pathology discussed below. There is no evidence for greater or lesser tuberosity fracture. No Hill-Sachs or reverse Hill-Sachs lesion is identified. Glenoid: No acute bony abnormality of the glenoid fossa or glenoid neck can be seen. Acromioclavicular joint: Mild changes of acromioclavicular joint arthrosis are present. Coracoacromial arch: Acromion morphology: Type II. No evidence for os acromiale. Acromiohumeral space: Moderately narrowed. Coracohumeral space: Within normal limits. Rotator cuff and deltoid: Supraspinatus: The supraspinatus tendon is abnormal in appearance. Moderate changes of supraspinatus tendinosis can be seen with partial-thickness intrasubstance and deep surface tearing of the distal tendon fibers, seen to best advantage on coronal series 7 image 15 and on sagittal series 9 image 5. The area of partial-thickness tearing involves up to 70% of the tendon thickness and measures approximately 9 mm in mediolateral dimension and 8 mm in anteroposterior dimension. No definite full-thickness tearing or retraction is seen. No atrophic changes of the supraspinatus muscle belly are identified. Infraspinatus: Moderate infraspinatus tendinosis can be seen. There is no evidence for full or partial-thickness tearing. No atrophic changes of the infraspinatus muscle belly are present. Teres minor: No evidence for tendinosis, tearing, or associated muscle belly atrophy. Subscapularis: Moderate subscapularis tendinosis can be seen. There is no evidence for full or partial-thickness tearing. No atrophic changes of the subscapularis muscle belly are noted. Deltoid: No evidence for strain or tearing. Biceps tendon: The intra-articular and biceps sulcus portions of the biceps tendon are normal. There is no evidence for rupture, dislocation, or subluxation. Glenohumeral joint and labrum: Articular Cartilage: No chondral injuries along the articular surfaces of the glenohumeral articulation can be seen. No osteoarthritic changes are identified. Labrum: The anterior, posterior, superior, and inferior portions of the labrum appear intact. No evidence for paralabral ganglion cyst formation can be seen. Capsular Soft Tissues: Nonspecific thickening of the capsular structures can be seen in the region of the axillary recess and rotator cuff interval. The findings may relate to changes of adhesive capsulitis. CONCLUSION: 1. Moderate supraspinatus, infraspinatus, and subscapularis tendinosis with partial-thickness intrasubstance and deep surface tearing of the supraspinatus tendon fibers as described above. No full-thickness tearing or retraction is seen. 2. Glenohumeral joint effusion and subacromial/subdeltoid bursitis. 3. No definite injuries to the glenoid labrum or long head of the biceps can be seen. 4. Mild acromioclavicular joint arthrosis with moderate narrowing of the acromiohumeral space. 5. No osteoarthritic changes of the glenohumeral articulation are seen. AEC Electronically signed on 06/02/2024 10:31:00 AM by Demar Boogie M.D.
== END 2024-06-01 15:15 | disposition home or self-care (01) ==
LOC: MRI 15:15
PROVIDERS: PCP Family Medicine; Visit Provider Orthopaedic Surgery
DX: M25.511 Pain in right shoulder (principal); M75.101 Unspecified rotator cuff tear or rupture of right shoulder, not specified as traumatic; M25.411 Effusion, right shoulder; M19.011 Primary osteoarthritis, right shoulder
CPT/HCPCS: 73221

== ENCOUNTER 2024-09-02 07:28 | Outpatient (CLI) | payer OTHER, SELFPAY | END 2024-09-02 07:29 | disposition home or self-care (01) | PROVIDERS: PCP Family Medicine; Visit Provider Family Medicine | DX: E11.40 Type 2 diabetes mellitus with diabetic neuropathy, unspecified (principal); R39.9 Unspecified symptoms and signs involving the genitourinary system; Z86.2 Personal history of diseases of the blood and blood-forming organs and certain disorders involving the immune mechanism | CPT/HCPCS: 80053; 82043; 82570; 82728; 87086 ==

== ENCOUNTER 2024-12-14 07:38 | Outpatient (CLI) | payer OTHER, SELFPAY | END 2024-12-14 07:39 | disposition home or self-care (01) | LOC: NFLDREF 11:37 | PROVIDERS: PCP Family Medicine; Referring Provider Family Medicine; Visit Provider Family Medicine | DX: E11.40 Type 2 diabetes mellitus with diabetic neuropathy, unspecified (principal); E03.9 Hypothyroidism, unspecified; E78.5 Hyperlipidemia, unspecified; Z79.899 Other long term (current) drug therapy | CPT/HCPCS: 80053; 80061; 82607; 82728; 83540; 83550; 84443 ==

== ENCOUNTER 2025-01-05 16:10 | Emergency (ER) | payer OTHER, SELFPAY ==
--- OUTSIDE RECORDS SUMMARY | 2025-01-05 16:12 | XMS_ITS | Clinical Summary ---
Author Organization [facility] Address [address] [place] [address] Care Team Providers Care Neuro Urologist Name Role Phone None Reported, Pcp Primary Care Provider Unavail able Source Comments Patient records contain information from all sites at [facility]. For routine questions regarding patient records, call [phone] during business hours, M-F 8:00 AM - 5:00 PM Central Time. Record requests for emergency care only can be directed to [phone] at any time.[facility] Allergies Active Allergy Reactions Criticality Noted [...] a day. Active blood sugar diagnostic strips (LinksyTouch Ultra Test Strips) 1 test once as [...] (02/06/2023): Added automatically from request for surgery [id number] Sinusitis Chronic 05/05/2018 Tendinitis Bicipital Left 10/22/2017 [...] Date Recorded Employment status Working with temporary [employer] 01/31/2023 Housing Stability Answer Date Recorded What is your living situation today? 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 Gender Identity Female 10/06/2023 10:05 AM CDT Sexual Orientation Straight 10/06/2023 10 :05 AM CDT Last Filed Vital Signs Vital Sign Reading Time Taken Comments Blood Pressure 114/76 01/22/2024 8:35 AM CDT Pulse 70 01/22/2024 8:35 AM CDT Temperature 36.9 C (98.4 F) 02/06/2023 4:09 PM CDT Respiratory Rate 16 02/06/2023 4:09 PM CDT [...] 1955 FIT 1955 Hepatitis C Screening 1955 Urine Albumin 1955 Hepatitis B Vaccines (1 of 3 - Risk 3-dose series) 2014 Mammogram 01/17/2020 01/16/2019, 12/28, 12/04/2017, Additional history exists Zoster Vaccines (2 of 2) 02/18/2024 12/24/2023 [...] 06/23/2024 06/23/2019, 12/11/2018, 08/22/2018, Additional history exists Depression Screening (Annual PHQ-2) 07/29/2024 Fall Risk Screen (Annual) 07/29/2024 Creatinine Level (Kidney Function Test) 12/18/2024 12/19/2023, 02/18/2023, 02/06/2023, Additional history exists Office Visit for Blood Pressure Check / Re-check 01/21/2025 01/22/2024 Thyroid Stimulating Hormone (TSH) test for thyroid function 01/21/2025 01/22/2024, 06/23/2019, 12/11/2018, Additional history exists DTaP,Tdap,and Td Vaccines (2 - Td or Tdap) 06/23/2029 06/23/2019 Pneumococcal vaccine (50+ years) Completed 07/12/2020, 06/23/2019, 06/13/2019 IPV Vaccines [...] - Sensitive) (01/22/2024 1:05 PM CDT) Pathologist [facility] TSH, Sensitive 1.1 0.3 - 4.2 mIU/L 01/22/2024 2:23 PM CDT DTL Blood (Blood, Venous) 01/22/2024 1:05 PM CDT 01/22/2024 1:50 PM CDT us Inés Gipson M.D. LAB BLOOD ADD-ON Final Res ult [facility] [address] [place] [address], [facility] [address] [place] [address] * (ABNORMAL) Hemoglobin A1c (12/19/2023 8:48 AM CDT) Pathologist [facility] Hemoglobin A1c, B 5.8(H) 4.2 - 5.6 % 12/19/2023 1:37 PM CDT OWAT Comment: Hemoglobin A1c values of 5.7-6.4 percent indicate an increased risk for developing diabetes mellitus. In diabetic patients, HbA1c goals should be discussed with healthcare provider. Blood (Blood, Venous) 12/19/2023 8:48 AM CDT 12/19/2023 12:57 PM CDT Iván Saleh M.D. LAB BLOOD ADD-ON Final Result [facility] [address] [place] [address], [place] [facility] [place] [address] [place] [address] * (ABNORMAL) Creatinine with Estimated GFR (12/19/2023 8:48 AM CDT) Creatinine 1.13(H) 0.59 - 1.04 mg/dL 12/19/2023 1:31 PM CDT OWAT Estimated GFR (eGFR) 53(L) >=60 mL/min/BSA 12/19/2023 1:31 PM CDT OWAT Comment: Estimated GFR calculated using the 2020 CKD_EPI creatinine equation. Blood (Blood, Venous) 12/19/2023 8:48 AM CDT 12/19/2023 12:57 PM CDT Iván Saleh M.D. LAB BLOOD ADD-ON Final Result [facility] [address] [place] [address], [place] [facility] [place] [address] [place] [address] * (ABNORMAL) Comprehensive Metabolic Panel (02/18/2023 12:37 [...] CDT 02/18/2023 1:22 PM CDT us Pepe M Demer M.D. LAB BLOOD ADD-ON Final Resu lt [facility] [address] [place] [address], [place] D[place] [facility] [address] [place] [address] from Last 3 Months or Most Recently Relevant to Health Maintenance Insurance [employer] Care Teams Neuro Urologist Relationship Specialty Start Date End Date None Reported, Pcp PCP - General Family Medicine 02/06/23
--- OUTSIDE RECORDS SUMMARY | 2025-01-05 16:12 | XMS_ITS | Clinical Summary ---
Author Organization [facility] Address [address] [place] [id number] Care Team Providers Care Train Caller Name Role Phone No Ref-Primary, Physician Primary [...] 12/03/2018 Conjugated Estrogens Palpitations Low 12/03/2018 Pumpkin Flavoring Agent (Non-Screening) Anaphylaxis High 12/03/2018 Medications B Complex Vitamins [...] (12/04/2018): Added automatically from request for surgery [id number] Family History Medical History Relation Comments Hypertension [...] Treatment Not on file [place] Care Teams Train Caller Relationship Specialty Start Date End Date No Ref-Primary, Physician PCP - General 12/09/18
--- OUTSIDE RECORDS SUMMARY | 2025-01-05 16:12 | XMS_ITS | Clinical Summary ---
Author Organization [facility] Address [address] [place] [id number] Care Team Providers Care Campus Recruiting Coordinator Name Role Phone Aruna Mahan MD Primary [...] heart palpitations Pumpkin Anaphylaxis High 10/11/2017 Medications ascorbic acid, vitamin C, (VITAMIN C) 1,000 mg tabletIndications: Depression with anxiety Take 1 tablet by mouth once daily. 0 05/24/20 17 Active multivitamin (MVI) tablet Take 1 tablet by mouth once daily. 0 10/12/19 18 Active vitamin B complex (B COMPLEX 1) tablet Take 1 tablet by mouth once daily. 0 10/12/19 18 Active Cranberry 400 mg capsule Take by mouth. 0 10/12/19 18 Active ONETOUCH DELICA LANCETS 30 gauge misc 07/11/20 17 Active Lactobacillus rhamnosus GG 5 billion cell chew Take by mouth. 0 04/25/20 18 Active polyethylene glycol (MIRALAX) 17 g powder for solution Take 17 g by mouth. 0 04/25/20 18 Active Sennosides (SENNA) 8.6 mg cap Take by mouth. 0 04/25/20 18 Active aspirin chewable 81 mg chewable tablet Take 1 tablet by mouth once daily with a meal. 0 12/12/19 19 Active blood-glucose meterIndications:T ype 2 diabetes mellitus with diabetic neuropathy, without long-term current use of insulin (HC) Dispense meter, test strips, lancets covered by pt ins. E11.9 NIDDM type II - Test 1 time/day 1 Device 10/16/19 20 Active rosuvastatin (CRESTOR) 20 mg tabletIndications: Mixed hyperlipidemia Take 1 tablet by mouth at bedtime. 90 tablet 3 11/11/19 20 Active estradioL (ESTRACE) 0.1 mg/g vaginal creamIndications:A trophic vaginitis Insert 1 g into the vagina at bedtime. 3x weekly 42.5 g 3 11/18/19 20 Active levothyroxine (SYNTHROID) 75 mcg tabletIndications: Hypothyroidism, unspecified type Take 1 tablet by mouth once daily. 90 tablet 3 11/30/19 20 Active bumetanide (BUMEX) 1 mg tabletIndications: Dizziness,Peripher al edema TAKE 1 TABLET EVERY MORNING 90 tablet 05/23/20 20 Active citalopram (CELEXA) 40 mg tabletIndications: Depression with anxiety TAKE 1 TABLET EVERY MORNING 90 tablet 05/23/20 20 Active busPIRone (BUSPAR) 5 mg tabletIndications: Depression with anxiety TAKE 1 TABLET TWICE DAILY 180 tablet 05/23/20 20 Active lansoprazole (PREVACID) 30 mg capsuleIndications :Gastroesophageal reflux disease, unspecified whether esophagitis present TAKE 1 CAPSULE ONCE DAILY 30-60 MINUTES BEFORE A MEAL 90 capsule 05/23/20 20 Active hyoscyamine (LEVBID) 0.375 mg Controlled-Release tabletIndications: Gastroesophageal reflux disease, unspecified whether esophagitis present Take 1 tablet by mouth every 12 hours. 60 tablet 06/26/20 20 Active blood sugar diagnostic (Blood Glucose Test) stripIndications:T ype 2 diabetes mellitus with diabetic neuropathy, without long-term current use of insulin (HC) Test one times per day. Diabetes melliltus type II. 100 Each 3 02/03/20 21 Active pioglitazone (ACTOS) 30 mg tabletIndications: Type 2 diabetes mellitus with diabetic neuropathy, without long-term current use of insulin (HC) Take 1 Tablet (30 mg) by mouth once daily. 10/29/19 24 Active pregabalin (Lyrica) 150 mg capsuleIndications :Type 2 diabetes mellitus with diabetic neuropathy, without long-term current use of insulin (HC) Take 1 Capsule (150 mg) by mouth two times daily. 10/29/19 24 Active dulaglutide (Trulicity) 0.75 mg/0.5 mL subcutaneous penIndications:Typ e 2 diabetes mellitus with diabetic neuropathy, without long-term current use of insulin (HC) Inject 1.5 mg subcutaneous once weekly. 10/29/19 24 Active Active Problems Problem Noted Date Diagnosed [...] Diagnosed Date Resolved Date Acute pyelonephritis 05/05/2018 Immunizations Immunization Administration Dates Next Due Influenza A (H1N1), [...] Answer Date Recorded PHQ-2 Score 5 06/23/2019 Comments No Sex and Gender Information Value Date Recorded Sex Assigned at Not on file Legal Sex Female 3:46 PM CDT Gender Identity Not on file Sexual Orientation Not on file Obstetrics History Last Filed Vital Signs Vital Sign Reading Time Taken Comments Blood Pressure 116/75 10/29/2023 9:40 AM CDT Pulse 74 10/29/2023 9:40 AM CDT Temperature 37.9 C (100.3 F) 12/11/2018 9:30 AM CDT Respiratory Rate 16 05/20/2018 10:0 6 AM CDT Oxygen Saturation 95% 10/29/2023 9:40 AM CDT Inhaled Oxygen Concentration - - Weight 81.1 kg (178 lb 14.4 oz) 10/29/2023 9:40 AM CDT Height 165 cm (5' 4.96) 06/23/2019 8:20 AM [facility] Body Mass Index 29.81 06/23/2019 8:20 AM [facility] Plan of Treatment Health Maintenance Due Date Last Done Comments Hepatitis C screening for age 18-79 1972 Colonoscopy through age 75 1999 Zoster (shingles) series for age 50+ (1 of 2) 2004 RSV vaccine for adults or (1 - Risk 60-74 years 1-dose series) 2014 DEXA/DXA scan for age 65+ 2019 Medicare Wellness for age 65+ 2019 Pneumococcal series for age 50+ (2 of 2 - PPSV23) 08/18/2019 06/23/2019 Mammogram for age 45-75 01/17/2020 01/17/20 19, 10/29/2017, 05/25/2016, Additional history exists BMI (ht and wt on same day) for age 18+ 06/23/2020 06/23/2019, 12/11/2018, 11/03/2018, Additional history exists Depression screening for age 12+ 06/23/2020 06/23/2019, 12/11/2018, 09/01/2018, Additional history exists COVID-19 vaccine series ( season) 2024 07/17/2022, 01/31/2022, 06/20/2021, Additional history exists Lipids for age 45-75 06/23/2024 06/23/2019, 12/11/2018, 08/22/2018, Additional history exists Influenza Vaccine (Season Ended) 2025 04/07/2019, 05/05/2018 Tetanus booster 06/23/2029 06/23/2019 Tdap Completed 06/23/2019 Hepatitis B series for 19+ Aged Out N o longer eligible based on patient's age to complete this topic Procedures Procedure Name Priority Date/Time Associated Diagnosis Comments LIPID PANEL Routine 06/23/2019 9:20 AM [facility] Mixed hyperlipidemia XR MAMMO BILAT SCREENING Routine 01/16/2019 2:00 PM CDT Breast screening, unspecified from Last 3 Months or Most Recently Relevant to Health Maintenance Results * (ABNORMAL) LIPID PANEL (06/23/2019 9:20 AM [facility]) CHOLESTEROL,TOTAL 182 100 - 199 mg/dL 06/23/2019 10:01 AM [facility] TRIGLYCERIDES 294(H) <150 mg/dL 06/23/2019 10:01 AM [facility] HDL CHOLESTEROL 48 >40 mg/dL 9 10:01 AM [facility] NON-HDL CHOLESTEROL 134 <145 mg/dl 06/23/2019 10:01 AM [facility] CHOL/HDL RATIO 3.79 <4.50 06/23/2019 10:01 AM [facility] LDL CHOLESTEROL 75 <=130 mg/dL 06/23/2019 10:01 AM [facility] PROVIDER ORDERED STATUS RANDOM 06/23/2019 10:01 AM [facility] Blood BLOOD SPECIMEN / Unknown Butterfly / Unknown 06/23/2019 9:20 AM [facility] 06/23/2019 9:20 AM [facility] Sydney Lakhani NP CHEMISTRY Final Result Performing Organization Address City/State/[facility] Co de Phone Number [facility] [address] [place] [address] * XR MAMMO BILAT SCREENING (01/16/2019 2:00 PM CDT) Anatomical Region Laterality Modality BREASTS, Breast Left, Breast Right Bilateral Mammography Impressions 01/19/2019 6:53 AM CDT There is no radiographic evidence for malignancy. Recommend annual mammograms. A lay language report of this examination will be provided to the patient. MAMMOGRAM ASSESSMENT: ACR 2 Benign Narrative 01/19/2019 6:53 AM CDT XR MAMMO BILAT SCREENING [[id number]] CLINICAL HISTORY: This is an asymptomatic 63 y.o. patient. INDICATION FOR EXAM: Mammogram Screening. TECHNIQUE: CC & MLO views were obtained. This digital study was evaluated with the assistance of Computer-Aided Detection. COMPARISON FILMS: Yes 10/29/17 [facility] FINDINGS: Mammographically, the breast tissue has scattered fibroglandular densities. No suspicious masses or microcalcifications. Benign appearing calcifications within left breast. Biopsy clip left breast. us Aleah Jung DO MAMMO Final Result from Last 3 Months or Most Recently Relevant to Health Maintenance Insurance [employer] CHO[employer] PPO MR Care Teams Campus Recruiting Coordinator Relationship Specialty Start Date End Date Aruna Mahan MD [address] [place] [address] PCP - General Family Practice 10/30/23
[2025-01-05 16:28] VITALS: BP 142/93; PULSE 73; RESP 20; TEMP 35.6; O2SAT 95; BMI 29.7
--- NOTE | 2025-01-05 16:54 | ED_ITS ---
HPI - General Adult General Chief complaint: Abdominal Pain Stated complaint: lower L abdomen pain Time Seen by Provider: 01/05/25 16:47 History of Present Illness HPI narrative: patient is having LLQ abdominal pain. feeling NV and dizzy. no stool for several days. Saturday had loose stools and moved to pain today. hx of diverticulitis, total hysterectomy. no fever. unable to stand up straight. 69-year-old woman presenting to the emergency department with complaint of left lower abdominal pain. She is nauseated. Abdominal pain is somewhat sharp. Persistent. Has been traveling/away recently and has not had a bowel movement for the last 4 days or so. Has not had a fever. Does have a history of diverticulitis apparently. Also total hysterectomy. Related Data Home Medications ?Medication ?Instructions ?Recorded ?Confirmed aspirin 325 mg tablet 325 mg PO QDAY 09/04/2212/27 multivitamin with iron 1 tab PO QDAY 09/04/2201/05 vitamin B complex (B 1 tab PO QDAY 09/04/2201/05 Complex-Vitamin B12 tablet) acetaminophen 500 mg tablet 1,000 mg PO TID PRN 01/05/25 cranberry fruit 400 mg capsule 2,000 mg PO QDAY 01/05/25 motrin 800mg BID 800 mg PO BID 01/05/2501/05 Previous Rx's ?Medication ?Instructions ?Recorded Blood Glucose Meter #1 ea 02/12/23 lancets #400 ea 08/05/24 Diabetic Test Strips #360 ea 10/15/24 pioglitazone 30 mg tablet 30 mg PO QDAY #90 tabs 11/04 estradiol 0.01% (0.1 mg/gram) 1 g vaginal 3XW #42.5 gr ams 12/04/24 vaginal cream (Estrace) bumetanide 1 mg tablet 1 mg PO DAILY #90 tabs 12/25 buspirone 5 mg tablet 5 mg PO BID #180 tabs citalopram 40 mg tablet 40 mg PO DAILY #90 tabs 11/28 dulaglutide 1.5 mg/0.5 mL 1.5 mg (0.5 mL) subcut QWEEK #2 mL 12/25/24 subcutaneous pen injector levothyroxine 75 mcg tablet 75 mcg PO DAILY #90 tabs 0 12/25/24 omeprazole 40 mg capsule,delayed 40 mg PO QAM #90 caps 12/25/24 release pregabalin 100 mg capsule (Lyrica) 100 mg PO QHS #90 c aps 12/25/24 pregabalin 150 mg capsule (Lyrica) 150 mg PO BID #180 caps 12/25/24 rosuvastatin 20 mg tablet 20 mg PO .Bedtime #90 tabs 0 12/25/24 hyoscyamine sulfate 0.375 mg 0.375 mg PO Q12H #180 tab s 01/06/25 tablet,extended release,12 hr Allergies Allergy/AdvReac Type Severity Reaction Status Date / Time meperidine (From Demerol) Allergy Severe Hallucinati Verified 01/05/25 16:38 ng codeine Allergy Intermediate Rash Verified 01/05/25 16:38 iodine Allergy Mild Unknown Verified 01/05/25 16:38 prochlorperazine Allergy Mild Verified 01/05/25 16:38 Iodinated Contrast Media Allergy Anaphylaxis Verified 01/05/25 16:38 shellfish derived Allergy Difficulty Verified 01/05/25 16:38 Breathing MSG Allergy Unknown Unknown Uncoded 12/25/24 15:05 Pumpkin Flavor Allergy Unknown Unknown Uncoded 12/25/24 15:05 Review of Systems Status of ROS: Reports: 6 or more systems reviewed and unremarkable except as noted in History and below [facility] 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 ?Z79.899 - Other care home (current) drug therapy (ICD-10) Mitral valve prolapse ?I34.1 - Nonrheumatic mitral (valve) prolapse (ICD-10) Memory problem (06/2020) ?R41.3 - Other amnesia (ICD-10) Urinary tract infection ?N39.0 - Urinary tract infection, site not specified (ICD-10) Systemic lupus erythematosus (1979) ?M32.9 - Systemic lupus erythematosus, unspecified (ICD-10) Symptomatic premature ventricular contractions ?I49.3 - Ventricular premature depolarization (ICD-10) History of coccidioidomycosis ?Z86.19 - Personal history of other infectious and parasitic diseases (ICD- 10) History of cerebrovascular accident (1998) ?Z86.73 - Personal history of transient ischemic attack (TIA), and cerebral infarction without residual deficits (ICD-10) History of basal cell carcinoma (BCC) ?Z85.828 - Personal history of other malignant neoplasm of skin (ICD-10) Frequent urinary tract infections ?N39.0 - Urinary tract infection, site not specified (ICD-10) Diabetes mellitus with diabetic neuropathy (1998) ?E11.40 - Type 2 diabetes mellitus with diabetic neuropathy, unspecified (ICD-10) Chronic left shoulder pain ?M25.512 - Pain in left shoulder (ICD-10) ?G89.29 - Other chronic pain (ICD-10) Anemia ?D64.9 - Anemia, unspecified (ICD-10) Surgical History History of melanoma excision (01/25/23) ?Z98.890 - Other specified postprocedural states (ICD-10) ?Z85.820 - Personal history of malignant melanoma of skin (ICD-10) History of phacoemulsification of cataract of both eyes with intraocular lens implantation (2012) ?Z98.41 - Cataract extraction status, right eye (ICD-10) ?Z98.42 - Cataract extraction status, left eye (ICD-10) ?Z96.1 - Presence of intraocular lens (ICD-10) History of tonsillectomy and adenoidectomy (1963) ?Z90.89 - Acquired absence of other organs (ICD-10) History of sinus surgery (2008) ?Z98.890 - Other specified postprocedural states (ICD-10) History of pelvic surgery (2009) ?Z98.890 - Other specified postprocedural states (ICD-10) History of colonoscopy (2013) ?Z98.890 - Other specified postprocedural states (ICD-10) Hx of hysterectomy for benign disease ?Z90.710 - Acquired absence of both cervix and uterus (ICD-10) Family History Mother Breast cancer, Onset Age: 65 Coronary artery disease, Onset Age: 78 Family/Other No problems noted. 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 [employer] Non-smoker Does not drink alcohol Exercise involving walking, rowing at home What is your current living situation?: I presently have a place to live Problems where you live: declined to answer In the past 12 months, utilities in danger of being shut off: no In past 12 months, lack of transportation kept you from medical appts, meetings, work, or getting things needed for daily living: no In the past 12 mos, have been you worried that your food would run out before you had money to buy more?: never true In the past 12 mos, the food you bought just didn't last and you didn't have money to buy more?: never true Smoking Status: Never smoker Non-prescribed substance use: denies use How often does anyone, including family, friends and others, physically hurt you : never How often does anyone, including family, friends and others, insult or talk down to you: never How often does anyone, including family, friends and others, threaten you with harm: never How often does anyone, including family, friends and others, scream or curse at you: unable to answer Exam Narrative: Exam Narrative: Pleasant. Clearly uncomfortable. Curled up a little bit. Breathing easily. Lungs are clear. Heart in regular rate and rhythm. Abdomen with present bowel sounds. Moderately tender to palpation in the left low abdomen. No peritoneal signs. Const: Vital Signs, click to edit/add: Vital Signs - 24 hr 01/05/25 16:28 01/05/25 18:30 Temperature 96.1 F L Pulse Rate [Pulse Oximeter] 73 55 L Respiratory Rate 20 16 Blood Pressure [Ri ght Upper Arm] 142/93 H 140/72 H Pulse Oximetry 95 93 Oxygen Delivery Me thod Room Air Room Air Documenting provider has reviewed patient's vital signs: yes Course Vital Signs Vital signs: Initial Vital Signs Temperature 96.1 F L 01/05/25 16:28 Temperature Source Temporal Artery Scan 01/05/25 16:28 Pulse Rate 73 01/05/25 16:28 Respiratory Rate 20 01/05/25 16:28 Blood Pressure 142/93 H 01/05/25 16:28 Blood Pressure Mean 109 H 01/05/25 16:28 Blood Pressure Position Sitting 01/05/25 16:28 Pulse Oximetry 95 01/05/25 16:28 Oxygen Delivery Method Room Air 01/05/25 16:28 Vital Signs Temperature 96.1 F L 01/05/25 16:28 Pulse Rate 73 01/05/25 16:28 Respiratory Rate 20 01/05/25 16:28 Blood Pressure 142/93 H 01/05/25 16:28 Pulse Oximetry 95 01/05/25 16:28 Oxygen Delivery Method Room Air 01/05/25 16:28 Temperature 96.1 F L 01/05/25 16:28 Pulse Rate 63 01/05/25 20:33 Respiratory Rate 16 01/05/25 20:33 Blood Pressure 170/90 H 01/05/25 20:33 Pulse Oximetry 93 01/05/25 18:30 Oxygen Delivery Method Room Air 01/05/25 18:30 Medications Administered Medications: Discontinued Medications Generic Name Dose Route Start Last Admin Trade Name Freq PRN Reason Stop Dose Admin Sodium Chloride 1,000 mls @ 1,000 mls/hr 01/05/25 17:05 01/05/25 19:38 0.9 % Sodium Chloride 1000 Ml IV 01/05/25 18:04 Infused .Q1H ONE Infusion Ceftriaxone Sodium 1 gm/ 100 mls @ 200 mls/hr 01/05/25 19:32 01/05/25 19:38 Sodium Chloride IVPB 01/05/25 19:33 200 mls/hr ONCE ONE Administration Ketorolac Tromethamine 30 mg 01/05/25 17:05 01/05/25 17:33 Ketorolac 30 Mg/Ml Inj IVP 01/05/25 17:06 30 mg ONCE ONE Administration Ondansetron HCl 4 mg 01/05/25 17:05 01/05/25 17:33 Ondansetron 2 Mg/Ml Inj IVP 01/05/25 17:06 4 mg ONCE ONE Administration Medical Decision Making MDM Narrative Medical decision making narrative: Does seem to be describing constipation; certainly this could be contributing to her pain. Diverticulitis is in differential as well. Would evaluate also for urinary tract infection. Reviewing medical records looks like there is a history of pyelonephritis. She would appreciate something for pain. Given IV fluids and ketorolac and Zofran. Perhaps labs will direct further evaluation a little better. White count is normal. Urinalysis with positive nitrite but otherwise fairly unremarkable. Considering intensity of her pain I would still offer CT imaging. Unremarkable given my independent review of CT imaging. Radiology over-read below INDICATION: Left lower quadrant abdominal pain TECHNIQUE: CT abdomen and pelvis without contrast. COMPARISON: CT abdomen pelvis 11/16/2021 FINDINGS: Lower chest: Bibasilar atelectasis. Liver: Unremarkable. Gallbladder and bile ducts: No stones or inflammation. No biliary dilatation. Pancreas: Unremarkable. Spleen: Unremarkable. Adrenal glands: Unremarkable. Kidneys: No hydronephrosis or nephrolithiasis. GI tract: No obstruction. No significant bowel inflammation. Moderate stool burden. Normal appendix. Vasculature: Abdominal aorta is normal in caliber. Moderate aortoiliac atherosclerosis. Lymph nodes: No lymphadenopathy. Peritoneum/Abdominal Wall: Tiny fat containing umbilical hernia. Pelvis: Hysterectomy. New minimal nodularity along the left vaginal cuff measuring 1.5 x 1.3 centimeters (, ). Sequela of urethral sling. Bones: Moderate degenerative disease of the spine. Moderate osteoarthritis of the left hip and mild osteoarthritis of the right hip. IMPRESSION: No acute intra-abdominal or intrapelvic pathology to explain symptoms. New minimal nodularity along the vaginal cuff is indeterminate, and may represent trace fluid. Consider correlation with physical exam or short interval follow-up CT in 3-6 months. Please note that all CT scans at this facility use dose modulation, iterative reconstruction, and/or weight-based dosing when appropriate to reduce radiation dose to as low as reasonably achievable. Dictated by Oralia Thornton MD @ 01/05/2025 6:32:00 PM I think will need to treat for potential urinary tract infection. Given a g of Rocephin. Also to address constipation Overall improved during time in the emergency department. Vitals are stable. See patient discharge plan for further discussion Focus on hydration. Continue with your MiraLax adjusting to stool consistency. Might need to add some of the Senokot you mentioned. If experiencing hard stool would consider suppository or enema. Presence of nitrate in your urine can indicate presence of Gram-negative bacteria which would typically be treated well with cephalexin as an antibiotic. I am prescribing this for you from [facility] along with Zofran for nausea and ketorolac. We will be culturing your urine and contacting you if a change needs to be made with your antibiotics. Return for marked increase in persistent abdominal pain, repeated vomiting, fever. Medical Records Medical records reviewed: Yes I reviewed the patient's medical records Lab Data Lab results reviewed: Yes I reviewed the patient's lab results Labs: Lab Results 01/05/25 01/05/25 Range/Units 17:40 17:49 WBC 9.06 (4.50-11.00) K/uL RBC 3.43 L (4.00-5.20) m/uL Hgb 10.4 L (12.0-16.0) gm/dL Hct 31.8 L (33.0-51.0) % MCV 93 (80-100) fL MCH 30 (26-34) pg MCHC 33 (32-36) gm/dL RDW Coeff of Giovanni 13.3 (11.5-15.5) % Plt Count 230 (140-440) K/uL Neut % (Auto) 60.6 (42.0-72.0) % Lymph % (Auto) 29.7 (20-44) % [place] % (Auto) 7.8 (0.0-11.0) % Eos % (Auto) 1.5 (0.0-7.0) % Baso % (Auto) 0.3 (0.0-3.0) % Neut # (Auto) 5.48 (1.7-7.0) K/uL Lymph # (Auto) 2.69 (0.90-2.90) K/uL [place] # (Auto) 0.70 (0.00-0.90) K/UL Eos # (Auto) 0.14 (0.00-0.50) K/uL Baso # (Auto) 0.03 (0.00-0.30) K/uL Abs Immat Gran (auto) 0.01 (0.00-0.30) K/uL Imm/Tot Granulo (auto) 0.1 % Sodium 139 (135-149) mmol/L Potassium 3.5 L (3.6-5.1) mmol/L Chloride 107 (96-114) mmol/L Carbon Dioxide 25 (20-32) mmol/L Anion Gap 7 (7-15) mEq/L BUN 27 (7-30) mg/dL Creatinine 1.0 (0.5-1.5) mg/dL Estimated Creat Clear 45.20 Estimated GFR 61 ml/min Glucose 93 (60-115) mg/dL Calcium 8.6 (8.4-10.6) mg/dL Urine Color Yellow (Yellow) Urine Appearance Cloudy A (Clear) Urine pH 5.5 (5.0-8.5) Ur Specific [place] 1.020 (1.000-1.030) Urine Protein Negative (Negative) Urine Glucose (UA) 2+ A (Negative) Urine Ketones Negative (Negative) Urine Blood Negative (Negative) Urine Nitrite Positive A (Negative) Urine Bilirubin Negative (Negative) Urine Urobilinogen 0.2 (0.2-1.0) Ur Leukocyte Esterase Trace A (Negative) Urine RBC 2-5 A (0-2) Urine WBC 2-5 (0-5) Ur Squamous Epith Cells Few (None-Few) Urine Bacteria Few A (None) Discharge Plan Discharge Clinical Impression: Abdominal pain, Constipation, Cystitis Patient Disposition: Home, Self-Care Condition: Improved Instructions: Constipation (ED), Abdominal Pain (ED) Additional Instructions: Focus on hydration. Continue with your MiraLax adjusting to stool consistency. Might need to add some of the Senokot you mentioned. If experiencing hard stool would consider suppository or enema. Presence of nitrate in your urine can indicate presence of Gram-negative bacteria which would typically be treated well with cephalexin as an antibiotic. I am prescribing this for you from [facility] along with Zofran for nausea and ketorolac. We will be culturing your urine and contacting you if a change needs to be made with your antibiotics. Return for marked increase in persistent abdominal pain, repeated vomiting, fever. Prescriptions: No Action vitamin B complex [B Complex-Vitamin B12] Tablet 1 tab PO QDAY multivitamin with iron Tablet 1 tab PO QDAY aspirin 325 mg tablet 325 mg PO QDAY acetaminophen 500 mg tablet 1,000 mg PO TID PRN Rx Instructions: NO MORE THAN 4000 MG/DAY cranberry fruit 400 mg capsule 2,000 mg PO QDAY Rx Instructions: administer with a meal bumetanide 1 mg tablet 1 mg PO DAILY Qty: 90 1RF buspirone 5 mg tablet 5 mg PO BID Qty: 180 3RF citalopram 40 mg tablet 40 mg PO DAILY Qty: 90 3RF dulaglutide 1.5 mg/0.5 mL pen injector 1.5 mg subcut QWEEK Qty: 2 12RF levothyroxine 75 mcg tablet 75 mcg PO DAILY Qty: 90 3RF omeprazole 40 mg capsule,delayed release(DR/EC) 40 mg PO QAM Qty: 90 3RF pregabalin [Lyrica] 100 mg capsule 100 mg PO QHS Qty: 90 1RF rosuvastatin 20 mg tablet 20 mg PO .Bedtime Qty: 90 3RF pregabalin [Lyrica] 150 mg capsule 150 mg PO BID Qty: 180 1RF motrin 800mg BID 800 mg PO BID (DME) Blood Glucose Meter Misc See Rx Instructions .Route Qty: 1 0RF Rx Instructions: test 3-4 times a day (DME) lancets Misc See Rx Instructions .Route Qty: 400 3RF Rx Instructions: test 3-4 times a day (DME) Diabetic Test Strips Misc See Rx Instructions .Route Qty: 360 1RF Rx Instructions: test 3-4 times a day pioglitazone 30 mg tablet 30 mg PO QDAY Qty: 90 0RF estradiol [Estrace] 0.01 % (0.1 mg/gram) cream 1 g vaginal 3XW Qty: 42.5 0RF hyoscyamine sulfate 0.375 mg tablet extended release 12 hr 0.375 mg PO Q12H Qty: 180 2RF Follow Up/Referrals: Aruna Mahan MD [Primary Care Provider, Family Practice] Stand Alone Forms: [facility] Inst[facility]
--- NOTE | 2025-01-05 17:08 | CRLHL7_ITS ---
For Patients: As a result of the Century Cures Act, medical imaging exams and procedure reports are released immediately into your electronic medical record. You may view this report before your referring provider. If you have questions, please contact your health care provider. INDICATION: Left lower quadrant abdominal pain TECHNIQUE: CT abdomen and pelvis without contrast. COMPARISON: CT abdomen pelvis 11/16/2021 FINDINGS: Lower chest: Bibasilar atelectasis. Liver: Unremarkable. Gallbladder and bile ducts: No stones or inflammation. No biliary dilatation. Pancreas: Unremarkable. Spleen: Unremarkable. Adrenal glands: Unremarkable. Kidneys: No hydronephrosis or nephrolithiasis. GI tract: No obstruction. No significant bowel inflammation. Moderate stool burden. Normal appendix. Vasculature: Abdominal aorta is normal in caliber. Moderate aortoiliac atherosclerosis. Lymph nodes: No lymphadenopathy. Peritoneum/Abdominal Wall: Tiny fat containing umbilical hernia. Pelvis: Hysterectomy. New minimal nodularity along the left vaginal cuff measuring 1.5 x 1.3 centimeters (, ). Sequela of urethral sling. Bones: Moderate degenerative disease of the spine. Moderate osteoarthritis of the left hip and mild osteoarthritis of the right hip. IMPRESSION: No acute intra-abdominal or intrapelvic pathology to explain symptoms. New minimal nodularity along the vaginal cuff is indeterminate, and may represent trace fluid. Consider correlation with physical exam or short interval follow-up CT in 3-6 months. Please note that all CT scans at this facility use dose modulation, iterative reconstruction, and/or weight-based dosing when appropriate to reduce radiation dose to as low as reasonably achievable. Dictated by Oralia Thornton MD @ 01/05/2025 6:32:00 PM (Electronically Signed)
[2025-01-05] MEDS: ONDANSETRON 2 MG/ML inj 4 MG IVP (17:33)
[2025-01-05] MEDS: KETOROLAC 30 MG/ML inj IVP (17:33)
[2025-01-05] MEDS: 0.9 % SODIUM CHLORIDE 1000 ml 1,000 ML IV (17:44)
[2025-01-05 17:48] LABS: Appearance Urine Cloudy (Clear); Bilirubin Urine Negative (Negative); Blood Urine Negative (Negative); Color Urine Yellow (Yellow); Glucose Urine 2+ (Negative); Ketones Urine Negative (Negative); Leukocyte Esterase Urine Trace (Negative); Nitrite Urine Positive (Negative); Protein Urine Negative (Negative); Urobilinogen Urine 0.2 (0.2-1.0); pH Urine 5.5 (5.0-8.5)
[2025-01-05 18:13] LABS: Bacteria Urine Few; Squamous Epithelial Cell Urine Few (None-Few)
[2025-01-05 18:22] LABS: Basophils Absolute Auto 0.03 K/uL (0.00-0.30); Basophils Percent Auto 0.3 % (0.0-3.0); Eosinophils Absolute Auto 0.14 K/uL (0.00-0.50); Eosinophils Percent Auto 1.5 % (0.0-7.0); Hematocrit 31.8 % (33.0-51.0); Hemoglobin* 10.4 gm/dL (12.0-16.0); Immature Granulocytes Abs Auto 0.01 K/uL (0.00-0.30); Immature Granulocytes Pct Auto 0.1 %; Lymphocytes Absolute Auto 2.69 K/uL (0.90-2.90); Lymphocytes Percent Auto 29.7 % (20-44); Mean Corpuscular HGB Conc 33 gm/dL (32-36); Mean Corpuscular Hemoglobin 30 pg (26-34); Mean Corpuscular Volume 93 fL (80-100); Monocytes Percent Auto 7.8 % (0.0-11.0); Neutrophils Absolute Auto 5.48 K/uL (1.7-7.0); Neutrophils Percent Auto 60.6 % (42.0-72.0); Platelet Count* 230 K/uL (140-440); RDW Coefficient of Variation % 13.3 % (11.5-15.5); Red Blood Count 3.43 m/uL (4.00-5.20); White Blood Count* 9.06 K/uL (4.50-11.00)
[2025-01-05 18:25] LABS: Slide Review Reflex No
[2025-01-05 18:30] VITALS: BP 140/72; PULSE 55; RESP 16; O2SAT 93
[2025-01-05 18:49] LABS: Chloride* 107 mmol/L (96-114); Potassium* 3.5 mmol/L (3.6-5.1); Sodium* 139 mmol/L (135-149)
[2025-01-05 18:52] LABS: Anion Gap 7 mEq/L (7-15); Blood Urea Nitrogen* 27 mg/dL (7-30); Carbon Dioxide* 25 mmol/L (20-32); Estimated Glomerular Filt Rate 61 ml/min
[2025-01-05 18:53] LABS: Calcium* 8.6 mg/dL (8.4-10.6); Glucose* 93 mg/dL (60-115)
[2025-01-05] MEDS: cefTRIAXone 1 GM in 0.9 % SODIUM CHLORIDE Mini-bag 100 ML IVPB (19:38)
[2025-01-05 20:33] VITALS: BP 170/90; PULSE 63; RESP 16
== END 2025-01-05 20:34 | disposition home or self-care (01) ==
PROVIDERS: Emergency Provider Family Medicine; PCP Family Medicine
DX: R10.32 Left lower quadrant pain (principal); R11.0 Nausea; K59.00 Constipation, unspecified; N30.90 Cystitis, unspecified without hematuria
CPT/HCPCS: 36415; 74176; 80048; 81001; 85025; 87086; 96361; 96374; 96375; 99284; J0696; J1885; J2405; J7030

== ENCOUNTER 2025-06-28 08:30 | Outpatient (CLI) | payer OTHER, SELFPAY | END 2025-06-28 08:31 | disposition home or self-care (01) | LOC: NFLDREF 07-01 13:16 | PROVIDERS: PCP Family Medicine; Referring Provider Family Medicine; Visit Provider Family Medicine | DX: D64.9 Anemia, unspecified (principal); E11.40 Type 2 diabetes mellitus with diabetic neuropathy, unspecified | CPT/HCPCS: 80053; 82306 ==

== ENCOUNTER 2025-07-12 15:59 | Outpatient (CLI) | payer OTHER, SELFPAY ==
--- NOTE | 2025-07-12 16:00 | CRLHL7_ITS ---
For Patients: As a result of the Century Cures Act, medical imaging exams and procedure reports are released immediately into your electronic medical record. You may view this report before your referring provider. If you have questions, please contact your health care provider. Indication: CHRONIC ABDOMINAL PAIN Technique: Noncontrast CT abdomen and pelvis Please note that all CT scans at this facility use dose modulation, iterative reconstruction, and/or weight-based dosing when appropriate to reduce radiation dose to as low as reasonably achievable. Comparison: 01/05/2025 Findings: Mild dependent atelectasis. No pleural effusion. Noncontrast enhanced liver demonstrates mild fatty infiltration. Gallbladder unremarkable. No calcified gallstones or biliary obstruction. The spleen is within normal limits. Normal adrenal glands. The kidneys are normal. No renal stone or hydronephrosis. Bladder is normal. Normal ureters. Mild fatty atrophy of the pancreas. Atherosclerotic changes. Status post hysterectomy. Unremarkable appearance of the vaginal cuff. No free air or free fluid. No bowel obstruction. No adenopathy. No intra-abdominal or intrapelvic adenopathy. Multilevel degenerative changes. No acute fracture. Degenerative subchondral changes at both hips. Impression: No acute or suspicious findings within the abdomen or pelvis. Please note that all CT scans at this facility use dose modulation, iterative reconstruction, and/or weight-based dosing when appropriate to reduce radiation dose to as low as reasonably achievable. Dictated by Ashu Patrick MD @ 07/13/2025 9:55:19 AM (Electronically Signed)
== END 2025-07-12 16:00 | disposition home or self-care (01) ==
LOC: CT 16:00
PROVIDERS: PCP Family Medicine; Visit Provider Family Medicine
DX: R10.84 Generalized abdominal pain (principal); K76.0 Fatty (change of) liver, not elsewhere classified; K86.1 Other chronic pancreatitis; M19.90 Unspecified osteoarthritis, unspecified site; Z90.710 Acquired absence of both cervix and uterus
CPT/HCPCS: 74176